=== PATIENT | male | born 1940 | race Caucasian/White ===

== ENCOUNTER 2018-11-10 19:10 | Inpatient (IN) ==
[2018-11-10] MEDS ORDERED: 0.9 % SODIUM CHLORIDE 1,000 ML IV ONE (19:24)
[2018-11-10] MEDS ORDERED: cefTRIAXone 1 GM VIAL IV ONE (20:01)
[2018-11-10 20:18] LABS: Basophils # (Auto) 0 K/mcL (0.0-0.3); Basophils % (Auto) 0 % (0.0-2.0); Eosinophils # (Auto) 0.1 K/mcL (0.0-0.7); Eosinophils % (Auto) 0.3 % (0.0-7.0); Hematocrit 44.2 % (41.0-55.0); Hemoglobin 14.6 g/dL (13.5-16.5); Lymphocytes # (Auto) 1.1 K/mcL (1.5-4.8); Lymphocytes % (Auto) 5.8 % (15.5-49.0); Mean Cell Volume 97.6 fL (80.0-100.0); Mean Corpuscular HGB Conc 32.9 g/dL (31.0-36.0); Mean Platelet Volume 8.5 fL (7.4-10.4); Monocytes # (Auto) 1.2 K/mcL (0.1-0.9); Monocytes % (Auto) 5.9 % (1.0-12.0); Platelet Count 249 K/mcL (140-440); RBC 4.53 M/mcL (4.50-5.90); WBC 19.8 K/mcL (4.5-11.0)
[2018-11-10 20:26] LABS: Appearance,Urine CLOUDY; Bacteria,Urine 0 /hpf (0); Bilirubin,Urine NEG (NEG); Color,Urine AMBER; Culture Indicated,Urine YES; Glucose,Urine (UA) NEGATIVE (NEG); Ketones,Urine NEG (NEG); Leukocyte Esterase,Urine 250 /uL (NEG); Mucus,Urine FEW /hpf (0); Nitrate,Urine POS (NEG); Protein,Urine 100 mg/dL (NEG); Specific Gravity,Urine 1.018 (1.000-1.035); Urine Blood 0.2 mg/dL (<0.03); Urine RBC 36 /hpf (0-1); Urine Squamous Epithelial Cell 0 /hpf (0-4); Urine WBC > 182 /hpf (0-4)
[2018-11-10 20:37] LABS: ALT/SGPT 13 U/l (0-40); AST/SGOT 16 U/l (0-37); Albumin 3.6 gm/dL (3.2-5.2); Albumin/Globulin Ratio 1.1 (1.0-2.3); Alkaline Phosphatase 88 U/L (39-117); Bilirubin,Total 0.4 mg/dL (0.0-1.0); Blood Urea Nitrogen 21 mg/dl (8-23); Calcium 8.5 mg/dl (8.6-10.4); Carbon Dioxide 20 mmol/L (22-30); Chloride 101 mmol/L (96-108); Globulin 3.3 gm/dL (2.2-3.7); Glomerular Filtration Rate 72; Glucose 99 mg/dL (70-105)
--- NOTE | 2018-11-10 20:42 | Emergency Department Note ---
Male Urogenital HPI - General Chief complaint: Urogenital-Male Stated complaint: possible UTI Time Seen by Provider: 11/10/18 19:25 Source: patient Mode of arrival: wheelchair Limitations: no limitations - History of Present Illness HPI Narrative: 78-year-old male presents with what he believes is a UTI. Has had increasing weakness over the last 3 days. Is prone to UTIs and sepsis related to UTIs according to him and his . He also is prone to prostatitis. states he had labs and a urine done 3 days ago and they still have not gotten the results. She did a dipstick at home which showed immediate large leukocytes and she believes she has a he has a UTI. States he is hard of hearing, not really confused. He does have what she describes as severe weakness and he can hardly get around at all. She states that is not like him and has progressively gotten worse over the last few days. Positive chills and a fever of 102 at home yeste rday. No nausea, vomiting, or diarrhea. No abdominal pain. No back pain. There is a very strong odor of urine present. is very concerned that he needs admitted because last time he had a UTI and we did not admit him he became much worse and septic due to prostatitis according to her. - Related Data Home Medications Medication Instructions Recorded Confirmed Aspirin [Lite Coat Aspirin] 325 mg PO DAILY 09/24/16 09/24/16 Ciprofloxacin [Cipro] 500 mg PO BID 09/24/16 09/24/16 Hydrochlorothiazide [Oretic] 12.5 mg PO DAILY 09/24/16 11/10/18 Losartan [Cozaar] 50 mg PO DAILY 09/24/16 11/10/18 Multivitamin [Multivitamins] 1 capsule PO DAILY 09/24/16 09/24/16 Sertraline [Zoloft] 100 mg DAILY 09/24/16 09/24/16 Sulfamethoxazole/Trimethoprim 1 tab PO BID 09/24/16 09/24/16 [Bactrim Ds] Tamsulosin 0.4 mg DAILY 09/24/16 11/10/18 Zantac 150 mg DAILY 09/24/16 09/24/16 traZODone HCL [Trazodone HCl] 25 mg DAILY 09/24/16 09/24/16 Cetirizine [ZyrTEC] 10 mg PO DAILY 11/10/18 11/10/18 Diltiazem [Cardizem Cd] 120 mg PO DAILY 11/10/18 11/10/18 Eliquis 5 mg PO BID 11/10/18 11/10/18 Mag Oxide/D3/Turmeric Rt Xt 1 tab PO DAILY 11/10/18 11/10/18 [Magnesium-Vit D3-Turmeric Tab] Pramipexole [Mirapex] 1.5 mg PO HS 11/10/18 11/10/18 Pravastatin [Pravachol] 40 mg PO DAILY 11/10/18 11/10/18 Sertraline [Zoloft] 100 mg PO DAILY 11/10/18 11/10/18 oxyCODONE HCL [Oxycodone HCl] 5 mg PO PRN PRN 11/10/18 11/10/18 Previous Rx's Medication Instructions Recorded Atenolol [Tenormin] 50 mg PO HS #30 tablet 09/24/16 Cefuroxime [Ceftin] 250 mg PO Q12 #10 tablet 09/24/16 Allergies Allergy/AdvReac Type Severity Reaction Status Date / Time codeine [CODEINE] Allergy Intermediate Rash,ITCHIN Verified 09/24/16 14:03 G hydrocodone [HYDROCODONE] Allergy Intermediate Rash,ITCHIN Verified 09/24/16 14:03 G Review of Systems All systems ED: reviewed and negative except as stated. Past Medical History - Past Medical History Medical history: Reports: atrial fibrillation (status post ablation), COPD, other (Frequent UTIs, prostatitis, sepsis) Surgical history ED: Reports: orthopedic, other, other (multiple back surgeries; lumbar fusion) - Social History smoking status: Former smoker Alcohol use: Reports: None Drug use: Reports: none Physical Exam Limitations: no limitations General appearance: alert, other (Hard of hearing but alert and oriented) Head: atraumatic, normocephalic, normal inspection Eye: Present: normal appearance. Absent: conjunctival injection ENT: mucous membranes moist Chest: Present: symmetric chest wall rise Respiratory: Present: normal lung sounds bilaterally. Absent: respiratory distress, rales/crackles, wheezes, accessory muscle use Cardiovascular: Present: regular rate, normal heart sounds Abdominal: Present: soft, normal bowel sounds. Absent: distention, tenderness, guarding, rebound : Present: other (Please see urine dip and urinalysis, urine culture pending) Neurological: Present: alert, oriented X3 Psychiatric: Present: normal affect, normal mood Skin: Present: warm, dry, intact, normal color. Absent: rash, cyanosis, diaphoresis, erythema Course Course Narrative: @2100 I did speak with the hospitalist, Dr. Jarrett who agrees to accept this patient. Vital Signs Temperature 98.5 F 11/10/18 19:11 Pulse Rate 110 H 11/10/18 19:11 Respiratory Rate 18 11/10/18 19:11 Blood Pressure 136/80 11/10/18 19:11 Pulse Oximetry (%) 95 11/10/18 19:11 Temperature 100.5 F H 11/10/18 20:07 Pulse Rate 114 H 11/10/18 20:43 Respiratory Rate 21 11/10/18 20:43 Blood Pressure 140/77 11/10/18 20:43 Pulse Oximetry (%) 93 11/10/18 20:43 Urogenital-Male - Lab Data Lab results reviewed: Yes I reviewed the patient's lab results. Result diagrams: 11/10/18 19:25 11/10/18 19:25 Lab Results 11/10/18 11/10/18 11/10/18 Range/Units 19:25 19:25 19:25 WBC 19.8 H (4.5-11.0) K/mcL RBC 4.53 (4.50-5.90) M/mcL Hgb 14.6 (13.5-16.5) g/dL Hct 44.2 (41.0-55.0) % MCV 97.6 (80.0-100.0) fL MCH 32.1 (26.0-34.0) pg MCHC 32.9 (31.0-36.0) g/dL RDW 14.0 (11.5-14.5) % Plt Count 249 (140-440) K/mcL MPV 8.5 (7.4-10.4) fL Gran % 88.0 H (38.0-78.0) % Lymph % (Auto) 5.8 L (15.5-49.0) % [place] % (Auto) 5.9 (1.0-12.0) % Eos % (Auto) 0.3 (0.0-7.0) % Baso % (Auto) 0 (0.0-2.0) % Gran # 17.4 H (1.8-8.0) K/mcL Lymph # (Auto) 1.1 L (1.5-4.8) K/mcL [place] # (Auto) 1.2 H (0.1-0.9) K/mcL Eos # (Auto) 0.1 (0.0-0.7) K/mcL Baso # (Auto) 0 (0.0-0.3) K/mcL VBG Lactic Acid 1.1 (0.5-2.0) mmol/L Sodium 135 (133-145) mmol/L Potassium 3.9 (3.3-5.1) mmol/L Chloride 101 (96-108) mmol/L Carbon Dioxide 20 L (22-30) mmol/L Anion Gap 14.0 (8-16) BUN 21 (8-23) mg/dl Creatinine 1.0 (0.7-1.2) mg/dl GFR Calculation 72 Glucose 99 (70-105) mg/dL Calcium 8.5 L (8.6-10.4) mg/dl Total Bilirubin 0.4 (0.0-1.0) mg/dL AST 16 (0-37) U/l ALT 13 (0-40) U/l Alkaline Phosphatase 88 (39-117) U/L Total Protein 6.9 (5.9-8.4) gm/dL Albumin 3.6 (3.2-5.2) gm/dL Globulin 3.3 (2.2-3.7) gm/dL Albumin/Globulin Ratio 1.1 (1.0-2.3) Urine Color Urine Appearance Urine pH (5.0-9.0) Ur Specific [place] (1.000-1.035) Urine Protein (NEG) mg/dL Urine Glucose (UA) (NEG) mg/dL Urine Ketones (NEG) mg/dL Urine Occult Blood (<0.03) mg/dL Urine Nitrate (NEG) Urine Bilirubin (NEG) mg/dL Urine Urobilinogen (NEG) mg/dL Ur Leukocyte Esterase (NEG) /uL Urine RBC (0-1) /hpf Urine WBC (0-4) /hpf Ur Squamous Epith Cells (0-4) /hpf Urine Bacteria (0) /hpf Urine Mucus (0) /hpf Ur Culture Indicated? 11/10/18 Range/Units 19:35 WBC (4.5-11.0) K/mcL RBC (4.50-5.90) M/mcL Hgb (13.5-16.5) g/dL Hct (41.0-55.0) % MCV (80.0-100.0) fL MCH (26.0-34.0) pg MCHC (31.0-36.0) g/dL RDW (11.5-14.5) % Plt Count (140-440) K/mcL MPV (7.4-10.4) fL Gran % (38.0-78.0) % Lymph % (Auto) (15.5-49.0) % [place] % (Auto) (1.0-12.0) % Eos % (Auto) (0.0-7.0) % Baso % (Auto) (0.0-2.0) % Gran # (1.8-8.0) K/mcL Lymph # (Auto) (1.5-4.8) K/mcL [place] # (Auto) (0.1-0.9) K/mcL Eos # (Auto) (0.0-0.7) K/mcL Baso # (Auto) (0.0-0.3) K/mcL VBG Lactic Acid (0.5-2.0) mmol/L Sodium (133-145) mmol/L Potassium (3.3-5.1) mmol/L Chloride (96-108) mmol/L Carbon Dioxide (22-30) mmol/L Anion Gap (8-16) BUN (8-23) mg/dl Creatinine (0.7-1.2) mg/dl GFR Calculation Glucose (70-105) mg/dL Calcium (8.6-10.4) mg/dl Total Bilirubin (0.0-1.0) mg/dL AST (0-37) U/l ALT (0-40) U/l Alkaline Phosphatase (39-117) U/L Total Protein (5.9-8.4) gm/dL Albumin (3.2-5.2) gm/dL Globulin (2.2-3.7) gm/dL Albumin/Globulin Ratio (1.0-2.3) Urine Color Bonnie Urine Appearance Cloudy Urine pH 6.0 (5.0-9.0) Ur Specific [place] 1.018 (1.000-1.035) Urine Protein 100 A (NEG) mg/dL Urine Glucose (UA) Negative (NEG) mg/dL Urine Ketones Neg (NEG) mg/dL Urine Occult Blood 0.2 A (<0.03) mg/dL Urine Nitrate Pos A (NEG) Urine Bilirubin Neg (NEG) mg/dL Urine Urobilinogen 2.0 A (NEG) mg/dL Ur Leukocyte Esterase 250 A (NEG) /uL Urine RBC 36 H (0-1) /hpf Urine WBC > 182 H (0-4) /hpf Ur Squamous Epith Cells 0 (0-4) /hpf Urine Bacteria 0 (0) /hpf Urine Mucus Few (0) /hpf Ur Culture Indicated? Yes - Radiology Data Radiology results reviewed: Yes I reviewed the patient's radiology results. Disposition Pt seen by LEAD PROCESS ENGINEER/PA only: No Clinical Impression: Fever, Urinary tract infection, Generalized weakness Disposition: Xfer As Outpt/Obs ([facility]) Condition: Fair Referrals: Cullen Ba MD [Primary Care Provider] - Time of Disposition: 21:00
--- NOTE | 2018-11-10 21:36 | Internal Med History&Physical ---
Medical - H&P: HPI Patient information: Note initiated : 11/10/18 at 9:32 pm Service Date, if different from initiated Date: [] Patient: Mil Fang a 78 y/o M admitted on for possible UTI. Chief Complaint: [] History of present illness: Mr. Fang is a 78 year old M with history of atrial fibrillation on chronic a nticoagulation back pain with the stimulator presents to the emergency room accompanied by his for evaluation of fever weakness that has been bothering him for the last 3 days. The patient has been not feeling well since Saturday, weakness, fever increased frequency of urination and foul-smelling urine. He has had urinary tract infections in the past and had required an admission. He was seen by his provider labs are ordered today, did not hear from the provider, urine dipstick was done as an outpatient the patient's brought this [id number] and it tested positive for a UTI and therefore the patient was brought into the hospital for further evaluation. The patient notes that the patient had a fever of 102 at home. The patient denies any headache changes in vision difficulty in swallowing no shortness of breath no cough no chest pain no abdominal pain no nausea no vo miting no diarrhea has chronic back pain has some sore muscles and myalgia otherwise no other complaints. On presenting to the emergency room patient had low-grade fever 100.5, heart rate was 109 blood pressure 136 x 80 respirations 18 saturating 95% on room air Labs show WBC count of 19,800, hemoglobin 14.6 platelets 249 chemistry shows bicarbonate of 20 creatinine of 1 glucose 99 UA suggestive of a urinary tract infection lactic acid is 1.1. Given the fact that the patient is quite weak has fever elevated white blood cell count patient is being admitted to the hospital for further management the patient already has 30-day heart monitor on for evaluation of atrial fibrillation by the aviation operations specialist, there is plan for an ablation in the near future All systems: reviewed and no additional remarkable complaints except as stated (As per HPI rest negative) Medical - H&P: PMH Medical history: Atrial fibrillation Chronic back Hyperlipidemia BPH Hypertension COPD obstructive sleep apnea History of DVT coronary artery disease Surgical history: Patient is status post TURP Multiple back surgeries Spinal cord submitted in place Family history: reviewed and not pertinent Social history: Lives with his Ex-smoker Social EtOH Medical - H&P: Meds Home Medications Medication Instructions Recorded Confirmed Type Aspirin [Lite Coat Aspirin] 325 mg PO DAILY 09/24/16 09/24/16 History Atenolol [Tenormin] 50 mg PO HS #30 tablet 09/24/16 Rx Cefuroxime [Ceftin] 250 mg PO Q12 #10 tablet 09/24/16 Rx Ciprofloxacin [Cipro] 500 mg PO BID 09/24/16 09/24/16 History Hydrochlorothiazide [Oretic] 12.5 mg PO DAILY 09/24/16 11/10/18 History Losartan [Cozaar] 50 mg PO DAILY 09/24/16 11/10/18 History Multivitamin [Multivitamins] 1 capsule PO DAILY 09/24/16 09/24/16 History Sertraline [Zoloft] 100 mg DAILY 09/24/16 09/24/16 History Sulfamethoxazole/Trimethoprim 1 tab PO BID 09/24/16 09/24/16 History [Bactrim Ds] Tamsulosin 0.4 mg DAILY 09/24/16 11/10/18 History Zantac 150 mg DAILY 09/24/16 09/24/16 History traZODone HCL [Trazodone HCl] 25 mg DAILY 09/24/16 09/24/16 History Cetirizine [ZyrTEC] 10 mg PO DAILY 11/10/18 11/10/18 History Diltiazem [Cardizem Cd] 120 mg PO DAILY 11/10/18 11/10/18 History Eliquis 5 mg PO BID 11/10/18 11/10/18 History Mag Oxide/D3/Turmeric Rt Xt 1 tab PO DAILY 11/10/18 11/10/18 History [Magnesium-Vit D3-Turmeric Tab] Pramipexole [Mirapex] 1.5 mg PO HS 11/10/18 11/10/18 History Pravastatin [Pravachol] 40 mg PO DAILY 11/10/18 11/10/18 History Sertraline [Zoloft] 100 mg PO DAILY 11/10/18 11/10/18 History oxyCODONE HCL [Oxycodone HCl] 5 mg PO PRN PRN 11/10/18 11/10/18 History Allergies Allergy/AdvReac Type Severity Reaction Status Date / Time codeine [CODEINE] Allergy Intermediate Rash,ITCHIN Verified 09/24/16 14:03 G hydrocodone [HYDROCODONE] Allergy Intermediate Rash,ITCHIN Verified 09/24/16 14:03 G Medical - H&P: Exam - Constitutional Vitals: Temp Pulse Resp BP Pulse Ox 100.5 F H 94 H 25 H 132/87 93 11/10/18 20:07 11/10/18 21:01 11/10/18 21:01 11/10/18 21:01 11/10/18 21:01 Exam: GENERAL: The patient is a well-developed, well-nourished in no apparent distress. Is alert and oriented x3. VITAL SIGNS: Reviewed and as noted elsewhere. HEENT: Head is normocephalic and atraumatic. Extraocular muscles are intact. Pupils are equal, round, and reactive to light. Nares appeared normal. Mouth appears any without lesions. Mucous membranes are dry. Hard of hearing NECK: Normal to inspection, Supple, No lymphadenopathy or thyromegaly. LUNGS: Air entry equal on both sides, no wheezing, crackles or rhonchi noted. No accessory muscles of respiration HEART: Regular rate and rhythm irregular, S1 and S2 heard, no Gallop, S3 or Rub Noted, No Gross murmur heard. ABDOMEN: Soft, nontender, and nondistended. Positive bowel sounds. No h epatosplenomegaly was noted. EXTREMITIES: No cyanosis, clubbing, rash, lesions or edema. NEUROLOGIC: Cranial nerves II through XII are grossly intact. Motor and Sensory System Grossly Intact PSYCHIATRIC: Normal affect, Normal Mood. Appropriate Behavior. SKIN: No ulceration or wounds noted, No jaundice, No rash noted. Medical - H&P: Reslt - Labs CBC & Chem 7: 11/10/18 19:25 11/10/18 19:25 Labs: Short CBC 11/10/18 Range/Units 19:25 WBC 19.8 H (4.5-11.0) K/mcL Hgb 14.6 (13.5-16.5) g/dL Hct 44.2 (41.0-55.0) % Plt Count 249 (140-440) K/mcL BMP 11/10/18 19:25 Sodium 135 Potassium 3.9 Chloride 101 Carbon Dioxide 20 L BUN 21 Creatinine 1.0 Glucose 99 Calcium 8.5 L Liver Function 11/10/18 Range/Units 19:25 Total Bilirubin 0.4 (0.0-1.0) mg/dL AST 16 (0-37) U/l ALT 13 (0-40) U/l Alkaline Phosphatase 88 (39-117) U/L Albumin 3.6 (3.2-5.2) gm/dL Urine 11/10/18 Range/Units 19:35 Urine Color Bonnie Urine Appearance Cloudy Urine pH 6.0 (5.0-9.0) Ur Specific [place] 1.018 (1.000-1.035) Urine Protein 100 A (NEG) mg/dL Urine Glucose (UA) Negative (NEG) mg/dL Medical - H&P: A/P - Narrative A/P Narrative: A/P UTI, complicated -IV rocephin, follow urine culture, blood cx Sepsis -due to above, lactate normal, bp normal Afib -rate controlled, on anticoagulation, on cardizem for rate control -has 30 day monitor, follows Dr Marlow, planned ablation in near future HTN -resume home bp meds HLD -on statin continue same COPD -no wheeze on exam, BPH -s/p turp, on flomax, continue h/o CAD -no cp, contiue home meds DVT on eliquis Full code
[2018-11-10] MEDS ORDERED: ONDANSETRON 4 MG/2 ML VIAL IV PRN (22:02)
[2018-11-10] MEDS ORDERED: ALBUTEROL SULFATE 2.5 MG/3 ML NEBULIZER NEB PRN (22:02)
[2018-11-10] MEDS ORDERED: NALOXONE HCL 0.4 MG/ML VIAL IV PRN (22:02)
[2018-11-10] MEDS ORDERED: cefTRIAXone 1 GM in DEXTROSE 5% IN WATER 50 ML IV SCH (22:02)
[2018-11-10] MEDS ORDERED: MAGNESIUM HYDROXIDE 30 ML ORAL.SUSP PO PRN (22:02)
[2018-11-10] MEDS ORDERED: traZODone HCL 50 MG TABLET PO PRN (22:02)
[2018-11-10] MEDS ORDERED: oxyCODONE HCL 5 MG TABLET PO PRN (22:02)
[2018-11-10] MEDS ORDERED: ACETAMINOPHEN 325 MG TABLET PO PRN (22:02)
--- NOTE | 2018-11-10 22:19 | Emergency Department Note ---
ED Note Addendum Note Addendum: I discussed this case with the mid-level provider and agree with the assessment and plan.
[2018-11-10] MEDS: DILTIAZEM 120 MG CAP.XL.24H PO SCH (22:41)
[2018-11-10] MEDS: PRAMIPEXOLE 1 MG TABLET PO SCH (22:41)
[2018-11-10] MEDS: APIXABAN 5 MG TABLET PO SCH (22:41)
[2018-11-10] MEDS: SIMVASTATIN 20 MG TABLET PO SCH (22:41)
[2018-11-10] MEDS: LACTATED RINGERS 1,000 ML IV SCH (22:42)
[2018-11-10] MEDS: 0.9 % SODIUM CHLORIDE 10 ML SYRINGE IV SCH (22:42)
[2018-11-11] MEDS: LACTATED RINGERS 1,000 ML IV SCH (03:44)
[2018-11-11] MEDS: IPRATROPIUM/ALBUTEROL 3 ML AMPUL.NEB NEB SCH ×5 (04:19→23:49)
[2018-11-11] MEDS: 0.9 % SODIUM CHLORIDE 10 ML SYRINGE IV SCH ×3 (04:46→20:24)
[2018-11-11 05:29] LABS: Basophils # (Auto) 0 K/mcL (0.0-0.3); Basophils % (Auto) 0 % (0.0-2.0); Eosinophils # (Auto) 0 K/mcL (0.0-0.7); Eosinophils % (Auto) 0.1 % (0.0-7.0); Granulocytes % (Auto) 85.2 % (38.0-78.0); Hemoglobin 12.8 g/dL (13.5-16.5); Lymphocytes # (Auto) 1.1 K/mcL (1.5-4.8); Lymphocytes % (Auto) 6.4 % (15.5-49.0); Mean Cell Volume 97.8 fL (80.0-100.0); Mean Corpuscular HGB Conc 32.9 g/dL (31.0-36.0); Mean Platelet Volume 8.4 fL (7.4-10.4); Monocytes # (Auto) 1.4 K/mcL (0.1-0.9); Monocytes % (Auto) 8.3 % (1.0-12.0); Platelet Count 233 K/mcL (140-440); RBC 3.98 M/mcL (4.50-5.90)
[2018-11-11 06:06] LABS: ALT/SGPT 11 U/l (0-40); AST/SGOT 14 U/l (0-37); Alkaline Phosphatase 88 U/L (39-117); Bilirubin,Direct < 0.2 mg/dL (0.0-0.3); Bilirubin,Total 0.3 mg/dL (0.0-1.0); Blood Urea Nitrogen 17 mg/dl (8-23); Calcium 8.3 mg/dl (8.6-10.4); Carbon Dioxide 23 mmol/L (22-30); Chloride 105 mmol/L (96-108); Globulin 2.9 gm/dL (2.2-3.7); Glomerular Filtration Rate 72; Glucose 114 mg/dL (70-105); Lactate Dehydrogenase 146 U/L (94-250); Phosphorous 1.4 mg/dL (2.7-4.5); Triglycerides 47 mg/dl (<150); Uric Acid 4.9 mg/dL (2.5-8.0)
[2018-11-11] MEDS: HYDROCHLOROTHIAZIDE 12.5 MG CAPSULE PO SCH (08:31)
[2018-11-11] MEDS: CETIRIZINE 10 MG TABLET PO SCH (08:31)
[2018-11-11] MEDS: SERTRALINE 100 MG TABLET PO SCH (08:32)
[2018-11-11] MEDS: LOSARTAN 25 MG TABLET PO SCH (08:32)
[2018-11-11] MEDS: APIXABAN 5 MG TABLET PO SCH ×2 (08:32→20:18)
[2018-11-11] MEDS: cefTRIAXone 1 GM VIAL IV SCH (08:33)
[2018-11-11] MEDS: DILTIAZEM 120 MG CAP.XL.24H PO SCH ×2 (08:33→20:19)
[2018-11-11] MEDS ORDERED: PRAVASTATIN 40 MG TABLET PO SCH (09:00)
[2018-11-11] MEDS ORDERED: TAMSULOSIN 0.4 MG CAPSULE PO SCH (09:00)
--- NOTE | 2018-11-11 10:42 | Internal Med Progress Note ---
Medical - PN: Subj Patient information: Note initiated : 11/11/18 at 10:41 am Service Date, if different from initiated Date: [] Patient: Mil Fang a 78 y/o M admitted on 11/10/18 for possible UTI. Chief Complaint: [] Interval history: Mr. Fang is a 78 year old M with history of atrial fibrillation on chronic an ticoagulation back pain with the stimulator presents to the emergency room accompanied by his for evaluation of fever weakness that has been bothering him for the last 3 days. The patient has been not feeling well since Saturday, weakness, fever increased frequency of urination and foul-smelling urine. He has had urinary tract infections in the past and had required an admission. He was seen by his provider labs are ordered today, did not hear from the provider, urine dipstick was done as an outpatient the patient's brought this [id number] and it tested positive for a UTI and therefore the patient was brought into the hospital for further evaluation. The patient notes that the patient had a fever of 102 at home. The patient denies any headache changes in vision difficulty in swallowing no shortness of breath no cough no chest pain no abdominal pain no nausea no vom iting no diarrhea has chronic back pain has some sore muscles and myalgia otherwise no other complaints. On presenting to the emergency room patient had low-grade fever 100.5, heart rate was 109 blood pressure 136 x 80 respirations 18 saturating 95% on room air Labs show WBC count of 19,800, hemoglobin 14.6 platelets 249 chemistry shows bicarbonate of 20 creatinine of 1 glucose 99 UA suggestive of a urinary tract infection lactic acid is 1.1. Given the fact that the patient is quite weak has fever elevated white blood cell count patient is being admitted to the hospital for further management the patient already has 30-day heart monitor on for evaluation of atrial fibrillation by the cardiovascular disease specialist, there is plan for an ablation in the near future 11/11 Patient is and examined, no acute overnight events. Doing well feels better but not as strong as baseline. White count down, urine and blood culture still pending Pertinent ROS: Denies headache, dizziness Denies chest pain, palpitations Denies cough or shortness of breath Denies abdominal pain, nausea or vomiting. - Constitutional Vitals: Vital Signs Temp Pulse Resp BP Pulse Ox 97.9 F 93 H 18 126/70 93 11/11/18 08:00 11/11/18 08:00 11/11/18 08:00 11/11/18 08:00 11/11/18 08:00 Period Temp Pulse Resp BP Sys/Armando Pulse Ox Last 24 Hr 97.9 F-100.5 F 67-116 14-30 104-149/68-92 93-97 Intake and Output 11/10/18 11/11/18 11/11/18 21:59 05:59 13:59 Intake Total 1000 1000 360 Output Total 1175 Balance 1000 -175 360 Weight 206 lb 208 lb 8 oz Intake & Output: Intake & Output 11/10/18 11/11/18 11/11/18 21:59 05:59 13:59 Intake Total 1000 1000 360 Output Total 1175 Balance 1000 -175 360 Weight 206 lb 208 lb 8 oz Intake: IV 1000 1000 Sodium Chloride 0.9% 1,000 ml @ 1000 Wide Open IV .Q0M ONE Rx#: [id number] Lactated Ringers 1,000 ml @ 200 1000 mls/hr IV .Q5H JOEL Rx#: [id number] Oral 360 Output: Void Amount 1175 Other: Meal Breakfast Percent of Meal Consumed 100% Feeding Ability Independent Urine Appearance Clear Urine Color Bright Yellow # Bowel Movements 1 Exam: Constitutional; Afebrile, cooperative, alert, not in distress. Respiratory system: Air Entry equal on both sides, No crackles or wheezing, no rhonchi. CVS- Rate rhythm regular, S1,S2 heard, no gallop, no rub. Abdomen- Soft nontender abdomen, no organomegaly, no tenderness, no guarding or rigidity, KEY ACCOUNT MANAGER- AOOx3, moving all extremities, no gross focal deficit noted. Medical - PN: Obj Da - Labs CBC & Chem 7: 11/11/18 03:50 11/11/18 03:50 Labs: Abnormal Lab Results 11/11/18 11/11/18 11/10/18 03:50 03:50 19:35 WBC 17.0 H RBC 3.98 L Hgb 12.8 L Hct 39.0 L Gran % 85.2 H Lymph % (Auto) 6.4 L Gran # 14.4 H Lymph # (Auto) 1.1 L [place] # (Auto) 1.4 H Carbon Dioxide Glucose 114 H Calcium 8.3 L Phosphorus 1.4 L Albumin 3.0 L Urine Protein 100 A Urine Occult Blood 0.2 A Urine Nitrate Pos A Urine Urobilinogen 2.0 A Ur Leukocyte Esterase 250 A Urine RBC 36 H Urine WBC > 182 H 11/10/18 11/10/18 19:25 19:25 WBC 19.8 H RBC Hgb Hct Gran % 88.0 H Lymph % (Auto) 5.8 L Gran # 17.4 H Lymph # (Auto) 1.1 L [place] # (Auto) 1.2 H Carbon Dioxide 20 L Glucose Calcium 8.5 L Phosphorus Albumin Urine Protein Urine Occult Blood Urine Nitrate Urine Urobilinogen Ur Leukocyte Esterase Urine RBC Urine WBC Meds: Medications Acetaminophen (Tylenol) 650 mg PO Q6HP PRN PRN Reason: PAIN/FEVER > 101 Albuterol Sulfate (Ventolin) 2.5 mg NEB Q2HP PRN PRN Reason: Shortness Of Breath Albuterol/Ipratropium (Duoneb) 3 ml NEB Q6HRT [facility] Last Admin: 11/11/18 06:50 Dose: 3 ml Documented by: Apixaban (Eliquis) 5 mg PO BID [facility] Last Admin: 11/11/18 08:32 Dose: 5 mg Documented by: Ceftriaxone Sodium (Rocephin) 1 gm IV Q24H [facility] Last Admin: 11/11/18 08:33 Dose: 1 gm Documented by: Cetirizine HCl (Zyrtec) 10 mg PO DAILY [facility] Last Admin: 11/11/18 08:31 Dose: 10 mg Documented by: Diltiazem HCl (Cardizem Cd) 120 mg PO BID [facility] Last Admin: 11/11/18 08:33 Dose: 120 mg Documented by: Hydrochlorothiazide (Oretic) 12.5 mg PO DAILY [facility] Last Admin: 11/11/18 08:31 Dose: 12.5 mg Documented by: Losartan Potassium (Cozaar) 50 mg PO DAILY [facility] Last Admin: 11/11/18 08:32 Dose: 50 mg Documented by: Magnesium Hydroxide (Milk Of Magnesia) 30 ml PO DAILYP PRN PRN Reason: Constipation Naloxone HCl (Narcan) 0.1 mg IV Q2MIN PRN PRN Reason: Opiate Reversal Ondansetron HCl (Zofran) 4 mg IV Q6HP PRN PRN Reason: Nausea And Vomiting Oxycodone HCl (Roxicodone) 5 mg PO Q4HP PRN PRN Reason: Pain Last Admin: 11/11/18 08:30 Dose: 5 mg Documented by: Pramipexole Dihydrochloride (Mirapex) 1.5 mg PO HS [facility] Last Admin: 11/10/18 22:41 Dose: 1.5 mg Documented by: Senna (Senokot) 2 tab PO [facility] Sertraline HCl (Zoloft) 100 mg PO DAILY [facility] Last Admin: 11/11/18 08:32 Dose: 100 mg Documented by: Simvastatin (Zocor) 20 mg PO HS [facility] Last Admin: 11/10/18 22:41 Dose: 20 mg Documented by: Sodium Chloride (Saline Flush) 10 ml IV Q8 [facility] Last Admin: 11/11/18 04:46 Dose: Not Given Documented by: Tamsulosin HCl (Flomax) 0.4 mg PO DAILY [facility] Last Admin: 11/11/18 09:30 Dose: Not Given Documented by: Trazodone HCl (Desyrel) 25 mg PO HSP PRN PRN Reason: Insomnia Medical - PN: A/P - Time Spent With Patient Total time spent is greater than 50% in coordination of care (as documented) at patient's floor/unit and/or counseling patient: - Narrative A/P Narrative: A/P UTI, complicated -IV rocephin, follow urine culture, blood cx Sepsis, resolved -due to above, lactate normal, bp normal Afib -rate controlled, on anticoagulation, on cardizem for rate control -has 30 day monitor, follows Dr Marlow, planned ablation in near future HTN -resume home bp meds , stable bp HLD -on statin continue same COPD -no wheeze on exam, BPH -s/p turp, on flomax qhs, continue h/o CAD -no cp, contiue home meds DVT on eliquis Full code
[2018-11-11] MEDS: SIMVASTATIN 20 MG TABLET PO SCH (20:18)
[2018-11-11] MEDS: PRAMIPEXOLE 1 MG TABLET PO SCH (20:18)
[2018-11-11] MEDS: SENNOSIDES 1 TABLET PO SCH (20:19)
[2018-11-11] MEDS: CALCIUM W/VIT D3 500 MG TABLET PO SCH (20:19)
[2018-11-11] MEDS: MAGNESIUM OXIDE 400 MG TABLET PO SCH (20:19)
[2018-11-11] MEDS: TAMSULOSIN 0.4 MG CAPSULE PO SCH (20:19)
[2018-11-11] MEDS ORDERED: MELATONIN 3 MG TABLET PO PRN (21:00)
[2018-11-12] MEDS: 0.9 % SODIUM CHLORIDE 10 ML SYRINGE IV SCH ×3 (05:49→20:50)
[2018-11-12 05:50] LABS: Basophils # (Auto) 0 K/mcL (0.0-0.3); Basophils % (Auto) 0.5 % (0.0-2.0); Eosinophils # (Auto) 0.1 K/mcL (0.0-0.7); Eosinophils % (Auto) 1.4 % (0.0-7.0); Granulocytes % (Auto) 76.2 % (38.0-78.0); Hematocrit 37.6 % (41.0-55.0); Hemoglobin 12.5 g/dL (13.5-16.5); Lymphocytes # (Auto) 1.1 K/mcL (1.5-4.8); Lymphocytes % (Auto) 12.3 % (15.5-49.0); Mean Cell Volume 97.4 fL (80.0-100.0); Mean Corpuscular HGB Conc 33.2 g/dL (31.0-36.0); Mean Platelet Volume 8.2 fL (7.4-10.4); Monocytes # (Auto) 0.9 K/mcL (0.1-0.9); Monocytes % (Auto) 9.6 % (1.0-12.0); Platelet Count 231 K/mcL (140-440); RBC 3.86 M/mcL (4.50-5.90); Red Cell Distribution Width 14.3 % (11.5-14.5)
[2018-11-12 05:58] LABS: ALT/SGPT 15 U/l (0-40); AST/SGOT 15 U/l (0-37); Albumin 2.9 gm/dL (3.2-5.2); Alkaline Phosphatase 74 U/L (39-117); Bilirubin,Direct < 0.2 mg/dL (0.0-0.3); Bilirubin,Total 0.4 mg/dL (0.0-1.0); Blood Urea Nitrogen 13 mg/dl (8-23); Calcium 8.3 mg/dl (8.6-10.4); Carbon Dioxide 25 mmol/L (22-30); Chloride 107 mmol/L (96-108); Glomerular Filtration Rate 86; Glucose 85 mg/dL (70-105); Lactate Dehydrogenase 144 U/L (94-250); Phosphorous 2.4 mg/dL (2.7-4.5); Triglycerides 45 mg/dl (<150); Uric Acid 4.9 mg/dL (2.5-8.0)
[2018-11-12] MEDS: IPRATROPIUM/ALBUTEROL 3 ML AMPUL.NEB NEB SCH (07:31)
[2018-11-12] MEDS: DILTIAZEM 120 MG CAP.XL.24H PO SCH ×2 (08:45→20:49)
[2018-11-12] MEDS: SERTRALINE 100 MG TABLET PO SCH (08:46)
[2018-11-12] MEDS: MAGNESIUM OXIDE 400 MG TABLET PO SCH ×2 (08:46→20:48)
[2018-11-12] MEDS: APIXABAN 5 MG TABLET PO SCH ×2 (08:47→20:50)
[2018-11-12] MEDS: LOSARTAN 25 MG TABLET PO SCH (08:47)
[2018-11-12] MEDS: CETIRIZINE 10 MG TABLET PO SCH (08:48)
[2018-11-12] MEDS: HYDROCHLOROTHIAZIDE 12.5 MG CAPSULE PO SCH (08:48)
[2018-11-12] MEDS: MULTIVIT,THER IRON,CA,FA & MIN 1 TABLET PO SCH (08:48)
[2018-11-12] MEDS: cefTRIAXone 1 GM VIAL IV SCH (08:57)
[2018-11-12] MEDS ORDERED: IPRATROPIUM/ALBUTEROL 3 ML AMPUL.NEB NEB PRN (11:41)
--- NOTE | 2018-11-12 11:41 | Internal Med Progress Note ---
Medical - PN: Subj Patient information: Note initiated : 11/12/18 at 11:39 am Service Date, if different from initiated Date: [] Patient: Mil Fang a 78 y/o M admitted on 11/10/18 for possible UTI. Chief Complaint: [] Interval history: Mr. Fang is a 78 year old M with history of atrial fibrillation on chronic an ticoagulation back pain with the stimulator presents to the emergency room accompanied by his for evaluation of fever weakness that has been bothering him for the last 3 days. The patient has been not feeling well since Saturday, weakness, fever increased frequency of urination and foul-smelling urine. He has had urinary tract infections in the past and had required an admission. He was seen by his provider labs are ordered today, did not hear from the provider, urine dipstick was done as an outpatient the patient's brought this [id number] and it tested positive for a UTI and therefore the patient was brought into the hospital for further evaluation. The patient notes that the patient had a fever of 102 at home. The patient denies any headache changes in vision difficulty in swallowing no shortness of breath no cough no chest pain no abdominal pain no nausea no vom iting no diarrhea has chronic back pain has some sore muscles and myalgia otherwise no other complaints. On presenting to the emergency room patient had low-grade fever 100.5, heart rate was 109 blood pressure 136 x 80 respirations 18 saturating 95% on room air Labs show WBC count of 19,800, hemoglobin 14.6 platelets 249 chemistry shows bicarbonate of 20 creatinine of 1 glucose 99 UA suggestive of a urinary tract infection lactic acid is 1.1. Given the fact that the patient is quite weak has fever elevated white blood cell count patient is being admitted to the hospital for further management the patient already has 30-day heart monitor on for evaluation of atrial fibrillation by the clinical lab specialist, there is plan for an ablation in the near future 11/11 Patient is and examined, no acute overnight events. Doing well feels better but not as strong as baseline. White count down, urine and blood culture still pending 11/12 Patient seen and examined, no acute overnight events. Patient has no new complaints or concerns feels better but still not as strong as he was before he came into the hospital. Urine culture is growing gram-negative bacillus isolation and sensitivity pending. Pertinent ROS: Denies headache, dizziness Denies chest pain, palpitations Denies cough or shortness of breath Denies abdominal pain, nausea or vomiting. - Constitutional Vitals: Vital Signs Temp Pulse Resp BP Pulse Ox 98.7 F 89 14 131/83 95 11/12/18 11:08 11/12/18 11:08 11/12/18 11:08 11/12/18 11:08 11/12/18 11:08 Period Temp Pulse Resp BP Sys/Armando Pulse Ox Last 24 Hr 97.3 F-98.9 F 80-96 14-18 103-144/56-83 93-97 Intake and Output 11/11/18 11/12/18 11/12/18 21:59 05:59 13:59 Intake Total 1050 400 Output Total 1100 1000 700 Balance -50 -600 -700 Weight 208 lb 8 oz Intake & Output: Intake & Output 11/11/18 11/12/18 11/12/18 21:59 05:59 13:59 Intake Total 1050 400 Output Total 1100 1000 700 Balance -50 -600 -700 Weight 208 lb 8 oz Intake: Oral 1050 400 Output: Void Amount 1100 1000 700 Other: Meal Lunch Percent of Meal Consumed 100% Urine Appearance Clear Clear Clear Urine Color Pale Bright Yellow Bright Yellow Bright Yellow Urine Odor Normal Exam: Constitutional; Afebrile, cooperative, alert, not in distress. Respiratory system: Air Entry equal on both sides, No crackles or wheezing, no rhonchi. CVS- Rate rhythm regular, S1,S2 heard, no gallop, no rub. Abdomen- Soft nontender abdomen, no organomegaly, no tenderness, no guarding or rigidity, CRITICAL CARE TRANSPORT NURSE- AOOx3, moving all extremities, no gross focal deficit noted. Medical - PN: Obj Da - Labs CBC & Chem 7: 11/12/18 03:21 11/12/18 03:21 Labs: Abnormal Lab Results 11/12/18 11/12/18 11/11/18 03:21 03:21 03:50 WBC RBC 3.86 L Hgb 12.5 L Hct 37.6 L Gran % Lymph % (Auto) 12.3 L Gran # Lymph # (Auto) 1.1 L [place] # (Auto) Carbon Dioxide Glucose 114 H Calcium 8.3 L 8.3 L Phosphorus 2.4 L 1.4 L Albumin 2.9 L 3.0 L Urine Protein Urine Occult Blood Urine Nitrate Urine Urobilinogen Ur Leukocyte Esterase Urine RBC Urine WBC 11/11/18 11/10/18 11/10/18 03:50 19:35 19:25 WBC 17.0 H RBC 3.98 L Hgb 12.8 L Hct 39.0 L Gran % 85.2 H Lymph % (Auto) 6.4 L Gran # 14.4 H Lymph # (Auto) 1.1 L [place] # (Auto) 1.4 H Carbon Dioxide 20 L Glucose Calcium 8.5 L Phosphorus Albumin Urine Protein 100 A Urine Occult Blood 0.2 A Urine Nitrate Pos A Urine Urobilinogen 2.0 A Ur Leukocyte Esterase 250 A Urine RBC 36 H Urine WBC > 182 H 11/10/18 19:25 WBC 19.8 H RBC Hgb Hct Gran % 88.0 H Lymph % (Auto) 5.8 L Gran # 17.4 H Lymph # (Auto) 1.1 L [place] # (Auto) 1.2 H Carbon Dioxide Glucose Calcium Phosphorus Albumin Urine Protein Urine Occult Blood Urine Nitrate Urine Urobilinogen Ur Leukocyte Esterase Urine RBC Urine WBC Meds: Medications Acetaminophen (Tylenol) 650 mg PO Q6HP PRN PRN Reason: PAIN/FEVER > 101 Albuterol Sulfate (Ventolin) 2.5 mg NEB Q2HP PRN PRN Reason: Shortness Of Breath Albuterol/Ipratropium (Duoneb) 3 ml NEB Q6HRT [facility] Last Admin: 11/12/18 07:31 Dose: Not Given Documented by: Apixaban (Eliquis) 5 mg PO BID [facility] Last Admin: 11/12/18 08:47 Dose: 5 mg Documented by: Calcium/Vitamin D (Calcium W/Vit D3) 500 mg PO QHS [facility] Last Admin: 11/11/18 20:19 Dose: 500 mg Documented by: Ceftriaxone Sodium (Rocephin) 1 gm IV Q24H [facility] Last Admin: 11/12/18 08:57 Dose: 1 gm Documented by: Cetirizine HCl (Zyrtec) 10 mg PO DAILY [facility] Last Admin: 11/12/18 08:48 Dose: 10 mg Documented by: Diltiazem HCl (Cardizem Cd) 120 mg PO BID [facility] Last Admin: 11/12/18 08:45 Dose: 120 mg Documented by: Hydrochlorothiazide (Oretic) 12.5 mg PO DAILY [facility] Last Admin: 11/12/18 08:48 Dose: 12.5 mg Documented by: Iron Carb/Multivit/Pie Cutter/Folic Acid (Multivitamin W/Minerals) 1 tab PO DAILY [facility] Last Admin: 11/12/18 08:48 Dose: 1 tab Documented by: Losartan Potassium (Cozaar) 50 mg PO DAILY [facility] Last Admin: 11/12/18 08:47 Dose: 50 mg Documented by: Magnesium Hydroxide (Milk Of Magnesia) 30 ml PO DAILYP PRN PRN Reason: Constipation Magnesium Oxide (Magnesium Oxide) 400 mg PO BID [facility] Last Admin: 11/12/18 08:46 Dose: 400 mg Documented by: Melatonin (Melatonin 3mg Tablet) 3 mg PO HSP PRN PRN Reason: Insomnia Naloxone HCl (Narcan) 0.1 mg IV Q2MIN PRN PRN Reason: Opiate Reversal Ondansetron HCl (Zofran) 4 mg IV Q6HP PRN PRN Reason: Nausea And Vomiting Oxycodone HCl (Roxicodone) 5 mg PO Q4HP PRN PRN Reason: Pain Last Admin: 11/11/18 08:30 Dose: 5 mg Documented by: Pramipexole Dihydrochloride (Mirapex) 1.5 mg PO [facility] Last Admin: 11/11/18 20:18 Dose: 1.5 mg Documented by: Senna (Senokot) 2 tab PO [facility] Last Admin: 11/11/18 20:19 Dose: 2 tab Documented by: Sertraline HCl (Zoloft) 100 mg PO DAILY [facility] Last Admin: 11/12/18 08:46 Dose: 100 mg Documented by: Simvastatin (Zocor) 20 mg PO [facility] Last Admin: 11/11/18 20:18 Dose: 20 mg Documented by: Sodium Chloride (Saline Flush) 10 ml IV Q8 [facility] Last Admin: 11/12/18 05:49 Dose: 10 ml Documented by: Tamsulosin HCl (Flomax) 0.4 mg PO QHS [facility] Last Admin: 11/11/18 20:19 Dose: 0.4 mg Documented by: Trazodone HCl (Desyrel) 25 mg PO HSP PRN PRN Reason: Insomnia Medical - PN: A/P - Time Spent With Patient Total time spent is greater than 50% in coordination of care (as documented) at patient's floor/unit and/or counseling patient: - Narrative A/P Narrative: A/P UTI, complicated -IV rocephin, follow urine culture, blood cx, gram neg in urine, but blood cx is negative. Sepsis, resolved -due to above, lactate normal, bp normal Afib -rate controlled, on anticoagulation, on cardizem for rate control -has 30 day monitor, follows Dr Marlow, planned ablation in near future HTN -resume home bp meds , stable bp HLD -on statin continue same COPD -no wheeze on exam, BPH -s/p turp, on flomax qhs, continue h/o CAD -no cp, contiue home meds Weakness -continue to work with PT/OT DVT on eliquis Full code Anticipate d/c home in AM
[2018-11-12] MEDS: PRAMIPEXOLE 1 MG TABLET PO SCH (20:47)
[2018-11-12] MEDS: CALCIUM W/VIT D3 500 MG TABLET PO SCH (20:48)
[2018-11-12] MEDS: SIMVASTATIN 20 MG TABLET PO SCH (20:49)
[2018-11-12] MEDS: TAMSULOSIN 0.4 MG CAPSULE PO SCH (20:49)
[2018-11-12] MEDS: SENNOSIDES 1 TABLET PO SCH (20:50)
[2018-11-13 05:26] LABS: Basophils # (Auto) 0 K/mcL (0.0-0.3); Basophils % (Auto) 0.6 % (0.0-2.0); Eosinophils # (Auto) 0.2 K/mcL (0.0-0.7); Eosinophils % (Auto) 3.7 % (0.0-7.0); Granulocytes % (Auto) 63.3 % (38.0-78.0); Hematocrit 41.1 % (41.0-55.0); Hemoglobin 13.5 g/dL (13.5-16.5); Lymphocytes # (Auto) 1.2 K/mcL (1.5-4.8); Lymphocytes % (Auto) 17.9 % (15.5-49.0); Mean Cell Volume 96.7 fL (80.0-100.0); Mean Corpuscular HGB Conc 32.8 g/dL (31.0-36.0); Monocytes # (Auto) 0.9 K/mcL (0.1-0.9); Monocytes % (Auto) 14.5 % (1.0-12.0); Platelet Count 271 K/mcL (140-440); RBC 4.25 M/mcL (4.50-5.90); Red Cell Distribution Width 13.7 % (11.5-14.5); WBC 6.5 K/mcL (4.5-11.0)
[2018-11-13 06:02] LABS: ALT/SGPT 23 U/l (0-40); AST/SGOT 21 U/l (0-37); Albumin 3.3 gm/dL (3.2-5.2); Alkaline Phosphatase 77 U/L (39-117); Bilirubin,Direct < 0.2 mg/dL (0.0-0.3); Bilirubin,Total 0.4 mg/dL (0.0-1.0); Blood Urea Nitrogen 13 mg/dl (8-23); Calcium 8.8 mg/dl (8.6-10.4); Carbon Dioxide 24 mmol/L (22-30); Chloride 103 mmol/L (96-108); Globulin 3.2 gm/dL (2.2-3.7); Glomerular Filtration Rate 86; Glucose 85 mg/dL (70-105); Lactate Dehydrogenase 141 U/L (94-250); Phosphorous 2.4 mg/dL (2.7-4.5); Triglycerides 68 mg/dl (<150)
[2018-11-13] MEDS: 0.9 % SODIUM CHLORIDE 10 ML SYRINGE IV SCH (07:43)
[2018-11-13] MEDS: HYDROCHLOROTHIAZIDE 12.5 MG CAPSULE PO SCH (08:21)
[2018-11-13] MEDS: MULTIVIT,THER IRON,CA,FA & MIN 1 TABLET PO SCH (08:21)
[2018-11-13] MEDS: SERTRALINE 100 MG TABLET PO SCH (08:21)
[2018-11-13] MEDS: LOSARTAN 25 MG TABLET PO SCH (08:22)
[2018-11-13] MEDS: CETIRIZINE 10 MG TABLET PO SCH (08:22)
[2018-11-13] MEDS: DILTIAZEM 120 MG CAP.XL.24H PO SCH (08:22)
[2018-11-13] MEDS: APIXABAN 5 MG TABLET PO SCH (08:22)
[2018-11-13] MEDS: MAGNESIUM OXIDE 400 MG TABLET PO SCH (08:22)
[2018-11-13] MEDS: cefTRIAXone 1 GM VIAL IV SCH (08:27)
--- NOTE | 2018-11-13 09:22 | Discharge Summary ---
Medical - DS: Prov Patient information: Note initiated : 11/13/18 at 9:15 am Service Date, if different from initiated Date: [] Patient: Mil Fang 78 y/o M admitted on 11/10/18 for possible UTI. Chief Complaint: [] Date of admission: 11/10/18 22:00 Discharge date: 11/13/18 Primary care physician: Cullen Ba MD Consults: 11/10/18 Consult to Physician [CONS] Stat Comment: Consulting Provider: Se Jarrett Reason For Exam: Physician to Consult Discharging clinician: Se Jarrett Medical - DS: Meds - Discharge Medications Prescriptions: Cephalexin [Keflex] 500 mg PO QID #16 cap Active and Home Medications: Home Medications Hydrochlorothiazide [Oretic] 12.5 mg PO DAILY 09/24/16 [History Confirmed 11/10/18 Last Taken 11/10/18] Losartan [Cozaar] 50 mg PO DAILY 09/24/16 [History Confirmed 11/10/18 Last Taken 11/10/18] Multivitamin [Multivitamins] 1 capsule PO DAILY 09/24/16 [History Confirmed 11/12/18 Last Taken 11/10/18] Sertraline [Zoloft] 100 mg PO DAILY 09/24/16 [History Confirmed 11/10/18 Last Taken Unknown] Tamsulosin 0.4 mg DAILY 09/24/16 [History Confirmed 11/10/18 Last Taken 11/09/18] Zantac 150 mg PO DAILY 09/24/16 [History Confirmed 11/10/18 Last Taken 11/04/18] Cetirizine [ZyrTEC] 10 mg PO DAILY 11/10/18 [History Confirmed 11/10/18 Last Taken 11/09/18] Diltiazem [Cardizem Cd] 120 mg PO DAILY 11/10/18 [History Confirmed 11/10/18 Last Taken 11/10/18] Eliquis 5 mg PO BID 11/10/18 [History Confirmed 11/10/18 Last Taken 11/10/18] Mag Oxide/D3/Turmeric Rt Xt [Magnesium-Vit D3-Turmeric Tab] 1 tab PO DAILY 11/10/18 [History Confirmed 11/10/18 Last Taken 11/10/18] Pramipexole [Mirapex] 1.5 mg PO HS 11/10/18 [History Confirmed 11/10/18 Last Taken 11/10/18] Pravastatin [Pravachol] 40 mg PO DAILY 11/10/18 [History Confirmed 11/10/18 Last Taken 11/09/18] Sertraline [Zoloft] 100 mg PO DAILY 11/10/18 [History Confirmed 11/10/18 Last Taken 11/10/18] oxyCODONE HCL [Oxycodone HCl] 5 mg PO PRN PRN 11/10/18 [History Confirmed 11/10/18 Last Taken 10/28/18] Medical - DS: Hosp Hospital course: MMr. Fang is a 78 year old M with history of atrial fibrillation on chronic anticoagulation back pain with the stimulator presents to the emergency room accompanied by his for evaluation of fever weakness that has been bothering him for the last 3 days. The patient has been not feeling well since Saturday, weakness, fever increased frequency of urination and foul-smelling urine. He has had urinary tract infections in the past and had required an admission. He was seen by his provider labs are ordered today, did not hear from the provider, urine dipstick was done as an outpatient the patient's brought this [id number] and it tested positive for a UTI and therefore the patient was brought into the hospital for further evaluation. The patient notes that the patient had a fever of 102 at home. The patient denies any headache changes in vision difficulty in swallowing no shortness of breath no cough no chest pain no abdominal pain no nausea no vomiting no diarrhea has chronic back pain has some sore muscles and myalgia otherwise no other complaints. On presenting to the emergency room patient had low-grade fever 100.5, heart rate was 109 blood pressure 136 x 80 respirations 18 saturating 95% on room air Labs show WBC count of 19,800, hemoglobin 14.6 platelets 249 chemistry shows bicarbonate of 20 creatinine of 1 glucose 99 UA suggestive of a urinary tract infection lactic acid is 1.1. Given the fact that the patient is quite weak has fever elevated white blood cell count patient is being admitted to the hospital for further management the patient already has 30-day heart monitor on for evaluation of atrial fibrillation by the medicare specialist, there is plan for an ablation in the near future 11/11 Patient is and examined, no acute overnight events. Doing well feels better but not as strong as baseline. White count down, urine and blood culture still pending 11/12 Patient seen and examined, no acute overnight events. Patient has no new complaints or concerns feels better but still not as strong as he was before he came into the hospital. Urine culture is growing gram-negative bacillus isolation and sensitivity pending. 11/13 Patient seen and examined no acute overnight events is dressed ready to be discharged. Has no new complaints or concerns sitting comfortably in the chair. Labs are stable. Urine culture is growing E. coli which is sensitive to cefazolin, I will discharge the patient with p.o. Keflex for another 4 days to complete a course of 7-day antibiotics. Discharge diagnosis: Complicated Urinary Tract infection - Time Spent with Patient Total time spent providing and/or coordinating discharge services: Greater than 30 minutes Medical - DS: Exam - Constitutional Vitals: Vital Signs Temp Pulse Resp BP BP Pulse Ox 11/13/18 07:35 98.6 F 16 134/74 94 11/13/18 03:52 97.5 F 87 24 H 139/75 94 11/12/18 23:20 98.9 F 88 24 H 128/69 95 11/12/18 19:53 97.8 F 84 22 153/85 93 11/12/18 16:00 98.7 F 84 14 126/76 95 11/12/18 11:08 98.7 F 89 14 131/83 95 Intake and Output 11/12/18 11/13/18 11/13/18 21:59 05:59 13:59 Intake Total 760 300 Output Total 600 1300 Balance 160 -1000 Intake: Oral 760 300 Output: Void Amount 600 1300 Other: Meal Dinner Percent of Meal Consumed 100% Feeding Ability Independent Urine Appearance Clear Clear Urine Color Bright Yellow Bright Yellow Urine Odor Normal Normal Weight 208 lb Additional comments: Constitutional; Afebrile, cooperative, alert, not in distress. Eyes- No icterus, , No periorbital swelling Ears- Ext ear normal, hearing normal to conversation. Neck- Midline trachea, supple Respiratory system: Air Entry equal on both sides, No crackles or wheezing, no rhonchi. CVS- Rate rhythm regular, S1,S2 heard, no gallop, no rub. Abdomen- Soft nontender abdomen, no organomegaly, no tenderness, no guarding or rigidity, PERFORMANCE IMPROVEMENT ANALYST- AOOx3, moving all extremities, no gross focal deficit noted. Medical - DS: Data Labs on day of discharge: Labs from last 24 hours 11/13/18 11/13/18 04:05 04:05 WBC 6.5 RBC 4.25 L Hgb 13.5 Hct 41.1 MCV 96.7 MCH 31.7 MCHC 32.8 RDW 13.7 Plt Count 271 MPV 8.0 Gran % 63.3 Lymph % (Auto) 17.9 Ocean % (Auto) 14.5 H Eos % (Auto) 3.7 Baso % (Auto) 0.6 Gran # 4.1 Lymph # (Auto) 1.2 L [place] # (Auto) 0.9 Eos # (Auto) 0.2 Baso # (Auto) 0 Sodium 137 Potassium 3.8 Chloride 103 Carbon Dioxide 24 Anion Gap 10.0 BUN 13 Creatinine 0.8 GFR Calculation 86 Glucose 85 Uric Acid 5.0 Calcium 8.8 Phosphorus 2.4 L Magnesium 1.9 Total Bilirubin 0.4 Direct Bilirubin < 0.2 GGT 20 AST 21 ALT 23 Alkaline Phosphatase 77 Lactate Dehydrogenase 141 Total Protein 6.5 Albumin 3.3 Globulin 3.2 Albumin/Globulin Ratio 1.0 Triglycerides 68 Preliminary micro results at discharge 11/10/18 19:25 Blood Culture - Preliminary Blood 11/10/18 20:14 Blood Culture - Preliminary Blood Medical - DS: A/P - Patient/Caregiver Discharge Instructions Activity: increase activity as tolerated Diet: Cardiac Additional Instructions: You were admitted to the hospital with a diagnosis of urinary tract infection, E. coli was isolated from the urine specimen. Take Cephalexin 500mg four times a day for 4 more days to complete your treatment course Follow up with PCP in 1 week Should your symptoms worsen you develop fever chills or any other acute complaint please go back to the emergency room for further evaluation - Follow up Plan Follow up with: Cullen Ba MD [Primary Care Provider] - Disposition: Home, Self-Care Prognosis: Fair Rehab Potential: Fair I certify that the patient requires SNF services: No Overall status at discharge: patient is progressing back to baseline
== END 2018-11-13 11:30 | disposition home or self-care (01) | DRG 872 ==
LOC: ED 19:10 → MEDSUR 22:00
PROVIDERS: ADMIT Internal Medicine; ATTEND Internal Medicine

== ENCOUNTER 2020-04-22 09:12 | Inpatient (IN) ==
[2020-04-22] MEDS ORDERED: TERBUTALINE 1 MG/ML VIAL SQ ONE (09:54)
[2020-04-22] MEDS ORDERED: 0.9 % SODIUM CHLORIDE 1,000 ML IV ONE ×2 (09:54→12:43)
[2020-04-22] MEDS ORDERED: ALBUTEROL SULFATE 200 PUFF INHALER INH ONE (09:54)
--- NOTE | 2020-04-22 10:00 | Emergency Department Note ---
Weakness HPI General Chief complaint: Weakness Stated complaint: weakness Time Seen by Provider: 04/22/20 09:38 Source: patient Mode of arrival: ambulatory Limitations: no limitations History of Present Illness HPI Narrative: Narrative: 79-year-old male who woke up this morning with coughing and shortness of breath. He is now requiring 3 L of oxygen to keep his saturations above 90%. He does have a history of COPD and heart problems-[facility] He is generally feeling weak and fatigued. Denies exposure to Covid or fever. No nausea or vomiting no diarrhea. He is not on home oxygen. He was hypotensive and so EMS put him on IV fluids Related Data Home Medications Medication Instructions Recorded Confirmed losartan 50 mg PO DAILY 09/24/16 04/22/20 sertraline 100 mg PO DAILY 09/24/16 04/22/20 cetirizine 10 mg PO DAILY 11/10/18 09/10/19 oxycodone 5 mg PO PRN PRN 11/10/18 04/22/20 pramipexole 1.5 mg PO HS 11/10/18 04/22/20 pravastatin 40 mg PO DAILY 11/10/18 04/22/20 albuterol sulfate 90 mcg/actuation 2 inh INHALATION QID PRN 04/09/19 09/10/19 breath activated powder inhaler diltiazem HCl 120 mg capsule,24 120 mg PO BID cap 04/09/19 04/22/20 hr,extended release tamsulosin 0.4 mg capsule 0.4 mg PO QHS cap 04/09/19 04/22/20 tiotropium 2.5 mcg-olodaterol 2.5 2 puff INHALATION QDAY 04/09/19 09/10/19 mcg/actuation mist for inhalation Calcium 600mg/Vitamin D PO QDAY 04/10/19 09/10/19 magnesium oxide 420 mg tablet 420 mg PO QDAY 04/10/19 09/10/19 apixaban 5 mg tablet 2 mg PO BID tab 04/15/19 04/22/20 cholecalciferol (vitamin D3) 25 5,000 unit PO QDAY cap 04/15/19 09/10/19 mcg (1,000 unit) capsule multivitamin 1 tab PO QDAY 04/15/19 09/10/19 hydrochlorothiazide 12.5 mg PO QDAY 04/22/20 04/22/20 Previous Rx's Medication Instructions Recorded tiotropium 2.5 mcg-olodaterol 2.5 2 puff INHALATION QDAY #12 g 04/15/19 mcg/actuation mist for inhalation Allergies Allergy/AdvReac Type Severity Reaction Status Date / Time codeine [CODEINE] Allergy Intermediate Hives Verified 09/10/19 10:58 hydrocodone [HYDROCODONE] Allergy Intermediate Rash,ITCHIN Verified 09/10/19 10:58 G amitriptyline Allergy Unknown Unknown Unverified 09/10/19 10:58 egg Allergy Unknown Unknown Unverified 09/10/19 10:58 metoprolol Allergy Unknown Unknown Unverified 09/10/19 10:58 wheat Allergy Unknown Unknown Unverified 09/10/19 10:58 caffine Allergy Unknown Unknown Uncoded 09/10/19 10:58 dairy Allergy Unknown Unknown Uncoded 09/10/19 10:58 Review of Systems ROS ROS Narrative: Narrative: All systems ED: reviewed and negative except as stated. PFSH Narrative Patient History Narrative: Narrative: Medical/Surgical/Family History All Active Problems (Updated 04/22/20 @ 10:38 by Andrzej Drake MD) Sepsis (Acute) Pneumonia (Acute) Hiatal hernia (Chronic) Bronchiectasis (Chronic) detention (current) use of opiate analgesic (Chronic) Diverticulitis (Chronic) DVT (deep venous thrombosis) (Chronic) Nocturia (Chronic) Chronic rhinitis (Chronic) Spinal stenosis, lumbar region with neurogenic claudication (Chronic) JOSIE on CPAP (Chronic) Febrile disorder (Chronic) Chronic ear infection (Chronic) Chronic obstructive pulmonary disease (Chronic) Atherosclerosis of coronary artery (Chronic) Paroxysmal atrial fibrillation (Chronic) CAD (coronary artery disease) (Chronic) Trigger finger, right index finger (Chronic) GERD (gastroesophageal reflux disease) (Chronic) Pulmonary fibrosis, unspecified (Chronic) Emphysema lung (Chronic) Elevated BP without diagnosis of hypertension (Chronic) Chronic back pain (Chronic) Colonic polyp (Chronic) Generalized anxiety disorder (Chronic) detention (current) use of anticoagulants (Chronic) Myocardial ischemia (Chronic) Sensorineural hearing loss (Chronic) Closed fracture of hip (Chronic) Hypogonadism (Chronic) Osteoporosis (Chronic) Acute lower urinary tract infection (Chronic) Benign prostatic hyperplasia (Chronic) Otitis externa (Chronic) Hyperlipidemia (Chronic) Restless legs (Chronic) Osteoarthritis (Chronic) Lumbar radiculopathy (Chronic) Allergic rhinitis (Chronic) Benign essential hypertension (Chronic) Mass (Chronic) Otitis media (Chronic) Disorder of nail (Chronic) Chronic sciatica (Chronic) Cardiac arrhythmia (Chronic) AAA (abdominal aortic aneurysm) (Chronic) Acute UTI (Chronic) Atrial fibrillation (Chronic) Insomnia (Chronic) Obstructive sleep apnea syndrome (Chronic) Interstitial emphysema (Chronic) Fever of unknown origin (Acute) COPD exacerbation (Acute) Hypomagnesemia (Acute) A-fib (Acute) Nausea & vomiting (Acute) Fever (Acute) Urinary tract infection (Acute) Generalized weakness (Acute) Medical History AAA (abdominal aortic aneurysm) (Chronic) Acute lower urinary tract infection (Chronic) Acute UTI (Chronic) Allergic rhinitis (Chronic) Atherosclerosis of coronary artery (Chronic) Atrial fibrillation (Chronic) Benign essential hypertension (Chronic) Benign prostatic hyperplasia (Chronic) Bronchiectasis (Chronic) Demonstrated on CT scan chest dated 02/03/2019 [facility] CAD (coronary artery disease) (Chronic) Cardiac arrhythmia (Chronic) Chronic back pain (Chronic) Chronic ear infection (Chronic) Chronic obstructive pulmonary disease (Chronic) Chronic rhinitis (Chronic) Chronic sciatica (Chronic) Closed fracture of hip (Chronic) Colonic polyp (Chronic) Disorder of nail (Chronic) Diverticulitis (Chronic) DVT (deep venous thrombosis) (Chronic) Elevated BP without diagnosis of hypertension (Chronic) Emphysema lung (Chronic) Febrile disorder (Chronic) Generalized anxiety disorder (Chronic) GERD (gastroesophageal reflux disease) (Chronic) Hiatal hernia (Chronic) Hyperlipidemia (Chronic) Hypogonadism (Chronic) Insomnia (Chronic) Interstitial emphysema (Chronic) detention (current) use of anticoagulants (Chronic) detention (current) use of opiate analgesic (Chronic) Lumbar radiculopathy (Chronic) Mass (Chronic) Myocardial ischemia (Chronic) Nocturia (Chronic) Obstructive sleep apnea syndrome (Chronic) JOSIE on CPAP (Chronic) Osteoarthritis (Chronic) Osteoporosis (Chronic) Otitis externa (Chronic) Otitis media (Chronic) Paroxysmal atrial fibrillation (Chronic) Pulmonary fibrosis, unspecified (Chronic) RLL Restless legs (Chronic) Sensorineural hearing loss (Chronic) Spinal stenosis, lumbar region with neurogenic claudication (Chronic) Trigger finger, right index finger (Chronic) Surgical History History of back surgery (Chronic) Multiple dating back to 1990, 2001, 2005, and 2010 History of left heart catheterization (Chronic) History of transurethral resection of prostate (Chronic) Status post ablation of atrial flutter (Chronic ~2013) Status post insertion of spinal cord stimulator (Chronic) Family History Mother Cancer Metastatic breast cancer Father Cancer Suicide Coronary heart disease Brother Parkinson's disease Social History Smoking Status: Former smoker Alcohol Intake Frequency: does not drink Substance Use: does not use Exam Narrative Narrative: Narrative: No acute distress doing much better after getting nasal cannula oxygen. He is normocephalic atraumatic. Conjunctive are clear sclerae white nonicteric. No nasal discharge or congestion. Oropharynx is pink and moist. Neck is supple without lymphadenopathy or thyromegaly. Heart is regular rate and rhythm no murmurs appreciated. Lungs are basically clear to aus cultation bilaterally but he does have some subtle end expiratory wheezes and bilateral crackles. Abdomen is soft nontender nondistended. No pedal edema. Alert and oriented General Limitations: no limitations Course Vital Signs Vital signs: Vital Signs Temperature 100.4 F H 04/22/20 09:12 Pulse Rate 121 H 04/22/20 09:12 Respiratory Rate 31 H 04/22/20 09:12 Blood Pressure 119/63 04/22/20 09:12 Pulse Oximetry (%) 94 04/22/20 09:12 Temperature 100.4 F H 04/22/20 09:12 Pulse Rate 113 H 04/22/20 10:01 Respiratory Rate 30 H 04/22/20 10:01 Blood Pressure 99/56 04/22/20 10:01 Pulse Oximetry (%) 93 04/22/20 10:01 [facility] MDM Narrative Medical decision making narrative: Narrative: Suspect pulmonary disease such as COPD plus or minus pneumonia plus minus CHF. Chest x-ray, test Covid, other laboratory. He is actually feeling better after getting oxygen and IV fluid. We will give him some terbutaline and albuterol Elizabeth testing for rapid Covid was negative. Chest x-ray however is concerning for significant pneumonia-we will order antibiotics and blood cultures. Concern for sepsis. ABG shows pH 7.42 PCO2 30 PO2 of 66 on 3 L of oxygen EKG shows sinus tachycardia Patient will be checked out to Dr. Meraz at shift change. Further disposition per him Lab Data Lab results reviewed: Yes I reviewed the patient's lab results. Result diagrams: 04/22/20 10:13 04/22/20 10:13 Radiology Data Radiology results reviewed: Yes I reviewed the patient's radiology results. EKG Data EKG #1: EKG attestation: Yes I reviewed and interpreted this EKG. EKG results narrative: Sinus tachycardia with several PAC Discharge Plan Patient/Caregiver Discharge Instructions Pt seen by CARDIOPULMONARY SPECIALIST/PA only: No Clinical Impression: Chronic obstructive pulmonary disease Qualifiers: COPD type: unspecified COPD Qualified Code(s): J44.9 - Chronic obstructive pulmonary disease, unspecified Sepsis Qualifiers: Sepsis type: sepsis due to unspecified organism Sepsis acute organ dysfunction status: with acute organ dysfunction Severe sepsis acute organ dysfunction type: unspecified Severe sepsis shock status: unspecified Qualified Code(s): A41.9 - Sepsis, unspecified organism Pneumonia Qualifiers: Pneumonia type: due to unspecified organism Laterality: right Lung location: lower lobe of lung Qualified Code(s): J18.9 - Pneumonia, unspecified organism Patient Disposition: Still a Patient Condition: Critical Follow up with: Leonie Sommer ARNP [Primary Care Provider] - Prescriptions: No Action albuterol sulfate 90 mcg/actuation aerosol powdr breath activated 2 inh INHALATION QID PRNRF: 0 diltiazem HCl 120 mg capsule,extended release 24 hr 120 mg PO BID RF: 0 tamsulosin 0.4 mg capsule 0.4 mg PO QHS RF: 0 tiotropium-olodaterol 2.5-2.5 mcg/actuation mist 2 puff INHALATION QDAY RF: 0 Calcium 600mg/Vitamin D PO QDAY RF: 0 magnesium oxide 420 mg tablet 420 mg PO QDAY RF: 0 apixaban 5 mg tablet 2 mg PO BID RF: 0 cholecalciferol (vitamin D3) 25 mcg (1,000 unit) capsule 5,000 unit PO QDAY RF: 0 multivitamin [Multiple Vitamins] Tablet 1 tab PO QDAY RF: 0 Stiolto Respimat 2.5-2.5 mcg/actuation mist 2 puff INHALATION QDAY Qty: 12 RF: 3 sertraline 100 MG tablet 100 mg PO DAILY RF: 0 losartan 25 MG tablet 50 mg PO DAILY RF: 0 pramipexole 1 MG tablet 1.5 mg PO HS RF: 0 cetirizine 10 MG tablet 10 mg PO DAILY RF: 0 pravastatin 40 MG tablet 40 mg PO DAILY RF: 0 oxycodone 5 MG tablet 5 mg PO PRN PRN (Reason: Pain) RF: 0 hydrochlorothiazide 12.5 mg Capsule 12.5 mg PO QDAY RF: 0
[2020-04-22] MEDS ORDERED: VANCOMYCIN 1,500 MG in 0.9 % SODIUM CHLORIDE 500 ML IV ONE (10:39)
[2020-04-22] MEDS ORDERED: PIPERACILLIN SODIUM/TAZOBACTAM 3.375 GM in DEXTROSE 5% IN WATER 50 ML IV ONE (10:39)
[2020-04-22 11:16] LABS: proBNP 334.2 pg/mL (<450.0)
[2020-04-22 11:18] LABS: ALT/SGPT 14 U/L (<40); AST/SGOT 19 U/L (<40); Albumin 3.6 gm/dL (3.2-5.2); Albumin/Globulin Ratio 1.2 (1.0-2.3); Alkaline Phosphatase 86 U/L (39-117); Bilirubin,Total 0.6 mg/dL (0.1-1.0); Blood Urea Nitrogen 39 mg/dL (8-23); Calcium 9.3 mg/dL (8.6-10.4); Carbon Dioxide 21 mmol/L (22-30); Chloride 99 mmol/L (96-108); Glomerular Filtration Rate 44; Glucose 120 mg/dL (70-105)
[2020-04-22 11:27] LABS: Basophils # (Auto) 0.04 K/mcL (0.00-0.20); Basophils % (Auto) 0.2 % (0.0-2.0); Eosinophils # (Auto) 0.15 K/mcL (0.00-0.70); Eosinophils % (Auto) 0.7 % (0.0-7.0); Hematocrit 43.8 % (41.0-55.0); Lymphocytes # (Auto) 0.33 K/mcL (1.50-4.80); Lymphocytes % (Auto) 1.5 % (15.0-49.0); Mean Cell Volume 92.6 fL (80.0-100.0); Mean Corpuscular HGB Conc 34.2 g/dL (31.0-36.0); Mean Platelet Volume 9.7 fL (7.4-10.4); Monocytes # (Auto) 1.02 K/mcL (0.10-0.90); Monocytes % (Auto) 4.6 % (1.0-12.0); Platelet Count 278 K/mcL (140-440); RBC 4.73 M/mcL (4.50-5.90); Red Cell Distribution Width 13.3 % (11.5-14.5)
[2020-04-22] MEDS ORDERED: AZITHROMYCIN 500 MG in DEXTROSE 5% IN WATER 250 ML IV ONE (11:29)
--- NOTE | 2020-04-22 11:39 | XRay Report ---
CLINICAL INFORMATION: SOB, cough COMPARISON: 02/16/2020 FINDINGS: Moderate megaly is unchanged. Mild thoracic aortic ectasia also stable. The remaining mediastinum and pulmonary vessels are normal. Moderate infiltrate in the right mid and lower lung appreciated. Minor airspace disease in the left lateral base infiltrate or atelectasis or developing infiltrate IMPRESSION: Moderate right mid and lower lung infiltrate. Interpreted and Authenticated by: Uriel Lobo 04/22/20
[2020-04-22] MEDS ORDERED: LACTULOSE 20 GM/30 ML ORAL.SOL PO PRN ×2 (12:44→14:18)
[2020-04-22] MEDS ORDERED: ACETAMINOPHEN 325 MG TABLET PO PRN ×2 (12:44→14:18)
[2020-04-22] MEDS ORDERED: PROMETHAZINE 25 MG TABLET PO PRN ×2 (12:44→14:18)
[2020-04-22] MEDS ORDERED: 0.9 % SODIUM CHLORIDE 1,000 ML IV SCH (12:45)
[2020-04-22] MEDS ORDERED: PIPERACILLIN SODIUM/TAZOBACTAM 3.375 GM in DEXTROSE 5% IN WATER 50 ML IV SCH (12:45)
[2020-04-22] MEDS ORDERED: oxyCODONE HCL 5 MG TABLET PO PRN (12:53)
[2020-04-22] MEDS ORDERED: AZITHROMYCIN 500 MG in DEXTROSE 5% IN WATER 250 ML IV SCH (13:00)
[2020-04-22] MEDS ORDERED: 0.9 % SODIUM CHLORIDE 250 ML IV SCH (13:00)
[2020-04-22] MEDS ORDERED: VASOPRESSIN 20 UNIT in DEXTROSE 5% IN WATER 99 ML IV SCH (13:00)
[2020-04-22] MEDS ORDERED: METOPROLOL TARTRATE 5 MG/5 ML VIAL IV PRN (13:01)
--- NOTE | 2020-04-22 13:09 | Internal Med History&Physical ---
HPI History of Present Illness Patient information: Note initiated : 04/22/20 at 1:05 pm Service Date, if different from initiated Date: [] Patient: Mil Fang a 79 y/o M admitted on for weakness. Chief Complaint: [] History of present illness: Mr. Fang is a 79 year old M with a past medical history of paroxysmal atrial fibrillation, COPD, pulmonary fibrosis, history of DVT, and history of long-term use of opiate who presented to the ER due to acute shortness of breath associated with a cough. At the per patient, he has been having acute shortness of breath associated with dry cough. He also feels tired. In the ER, rapid Covid test negative. X-ray showed moderate right mid and lower lung infiltrate. His D-dimer was elevated in the ER. But he is on Eliquis for atrial fibrillation. Review of Systems Review of systems: Positive for shortness of breath. All other systems were reviewed and are negative. PFSH PFSH All Active Problems Sepsis (Acute) Pneumonia (Acute) Hiatal hernia (Chronic) Bronchiectasis (Chronic) general accountant (current) use of opiate analgesic (Chronic) Diverticulitis (Chronic) DVT (deep venous thrombosis) (Chronic) Nocturia (Chronic) Chronic rhinitis (Chronic) Spinal stenosis, lumbar region with neurogenic claudication (Chronic) JOSIE on CPAP (Chronic) Febrile disorder (Chronic) Chronic ear infection (Chronic) Chronic obstructive pulmonary disease (Chronic) Atherosclerosis of coronary artery (Chronic) Paroxysmal atrial fibrillation (Chronic) CAD (coronary artery disease) (Chronic) Trigger finger, right index finger (Chronic) GERD (gastroesophageal reflux disease) (Chronic) Pulmonary fibrosis, unspecified (Chronic) Emphysema lung (Chronic) Elevated BP without diagnosis of hypertension (Chronic) Chronic back pain (Chronic) Colonic polyp (Chronic) Generalized anxiety disorder (Chronic) general accountant (current) use of anticoagulants (Chronic) Myocardial ischemia (Chronic) Sensorineural hearing loss (Chronic) Closed fracture of hip (Chronic) Hypogonadism (Chronic) Osteoporosis (Chronic) Acute lower urinary tract infection (Chronic) Benign prostatic hyperplasia (Chronic) Otitis externa (Chronic) Hyperlipidemia (Chronic) Restless legs (Chronic) Osteoarthritis (Chronic) Lumbar radiculopathy (Chronic) Allergic rhinitis (Chronic) Benign essential hypertension (Chronic) Mass (Chronic) Otitis media (Chronic) Disorder of nail (Chronic) Chronic sciatica (Chronic) Cardiac arrhythmia (Chronic) AAA (abdominal aortic aneurysm) (Chronic) Acute UTI (Chronic) Atrial fibrillation (Chronic) Insomnia (Chronic) Obstructive sleep apnea syndrome (Chronic) Interstitial emphysema (Chronic) Fever of unknown origin (Acute) COPD exacerbation (Acute) Hypomagnesemia (Acute) A-fib (Acute) Nausea & vomiting (Acute) Fever (Acute) Urinary tract infection (Acute) Generalized weakness (Acute) Medical History AAA (abdominal aortic aneurysm) (Chronic) Acute lower urinary tract infection (Chronic) Acute UTI (Chronic) Allergic rhinitis (Chronic) Atherosclerosis of coronary artery (Chronic) Atrial fibrillation (Chronic) Benign essential hypertension (Chronic) Benign prostatic hyperplasia (Chronic) Bronchiectasis (Chronic) Demonstrated on CT scan chest dated 02/03/2019 [facility] CAD (coronary artery disease) (Chronic) Cardiac arrhythmia (Chronic) Chronic back pain (Chronic) Chronic ear infection (Chronic) Chronic obstructive pulmonary disease (Chronic) Chronic rhinitis (Chronic) Chronic sciatica (Chronic) Closed fracture of hip (Chronic) Colonic polyp (Chronic) Disorder of nail (Chronic) Diverticulitis (Chronic) DVT (deep venous thrombosis) (Chronic) Elevated BP without diagnosis of hypertension (Chronic) Emphysema lung (Chronic) Febrile disorder (Chronic) Generalized anxiety disorder (Chronic) GERD (gastroesophageal reflux disease) (Chronic) Hiatal hernia (Chronic) Hyperlipidemia (Chronic) Hypogonadism (Chronic) Insomnia (Chronic) Interstitial emphysema (Chronic) general accountant (current) use of anticoagulants (Chronic) senior living (current) use of opiate analgesic (Chronic) Lumbar radiculopathy (Chronic) Mass (Chronic) Myocardial ischemia (Chronic) Nocturia (Chronic) Obstructive sleep apnea syndrome (Chronic) JOSIE on CPAP (Chronic) Osteoarthritis (Chronic) Osteoporosis (Chronic) Otitis externa (Chronic) Otitis media (Chronic) Paroxysmal atrial fibrillation (Chronic) Pulmonary fibrosis, unspecified (Chronic) RLL Restless legs (Chronic) Sensorineural hearing loss (Chronic) Spinal stenosis, lumbar region with neurogenic claudication (Chronic) Trigger finger, right index finger (Chronic) Surgical History History of back surgery (Chronic) Multiple dating back to 1990, 2001, 2006, and 2010 History of left heart catheterization (Chronic) History of transurethral resection of prostate (Chronic) Status post ablation of atrial flutter (Chronic ~2013) Status post insertion of spinal cord stimulator (Chronic) Family History Mother Cancer Metastatic breast cancer Father Cancer Suicide Coronary heart disease Brother Parkinson's disease Social History smoking status: Former smoker smoking status start date: 04/29/1968 smoking status stop date: 04/29/13 alcohol intake frequency: does not drink substance use type: does not use MEDS/ALLERGIES Home Medications and Allergies Home Medications Medication Instructions Recorded Confirmed Type losartan 50 mg PO DAILY 09/24/16 04/22/20 History sertraline 100 mg PO DAILY 09/24/16 04/22/20 History cetirizine 10 mg PO DAILY 11/10/18 09/10/19 History oxycodone 5 mg PO PRN PRN 11/10/18 04/22/20 History pramipexole 1.5 mg PO HS 11/10/18 04/22/20 History pravastatin 40 mg PO DAILY 11/10/18 04/22/20 History albuterol sulfate 90 mcg/actuation 2 inh INHALATION QID PRN 04/09/19 09/10/19 History breath activated powder inhaler diltiazem HCl 120 mg capsule,24 120 mg PO BID cap 04/09/19 04/22/20 History hr,extended release tamsulosin 0.4 mg capsule 0.4 mg PO QHS cap 04/09/19 04/22/20 History tiotropium 2.5 mcg-olodaterol 2.5 2 puff INHALATION QDAY 04/09/19 09/10/19 History mcg/actuation mist for inhalation Calcium 600mg/Vitamin D PO QDAY 04/10/19 09/10/19 History magnesium oxide 420 mg tablet 420 mg PO QDAY 04/10/19 09/10/19 History apixaban 5 mg tablet 2 mg PO BID tab 04/15/19 04/22/20 History cholecalciferol (vitamin D3) 25 5,000 unit PO QDAY cap 04/15/19 09/10/19 History mcg (1,000 unit) capsule multivitamin 1 tab PO QDAY 04/15/19 09/10/19 History tiotropium 2.5 mcg-olodaterol 2.5 2 puff INHALATION QDAY #12 g 04/15/19 09/10/19 Rx mcg/actuation mist for inhalation hydrochlorothiazide 12.5 mg PO QDAY 04/22/20 04/22/20 History Allergies Allergy/AdvReac Type Severity Reaction Status Date / Time codeine [CODEINE] Allergy Intermediate Hives Verified 04/22/20 11:26 hydrocodone [HYDROCODONE] Allergy Intermediate Rash,ITCHIN Verified 04/22/20 11:26 G amitriptyline Allergy Unknown Unknown Verified 04/22/20 11:26 egg Allergy Unknown Unknown Verified 04/22/20 11:26 metoprolol Allergy Unknown Unknown Verified 04/22/20 11:26 wheat Allergy Unknown Unknown Verified 04/22/20 11:26 caffine Allergy Unknown Unknown Uncoded 09/10/19 10:58 dairy Allergy Unknown Unknown Uncoded 09/10/19 10:58 EXAM Constitutional Vitals: Temp Pulse Resp BP Pulse Ox 100.4 F H 98 H 19 97/60 95 04/22/20 09:12 04/22/20 12:46 04/22/20 12:46 04/22/20 12:46 04/22/20 12:46 Additional findings Additional findings: General - No acute distress Eyes - PERRLA, EOM intact ENT no rhinorrhea, no noticeable or palpable swelling Neck supple, no JVD, no thyromegaly Respiratory: Lungs -diminished breathing sounds, right basilar crackle. Cardiovascular -irregular irregular rhythm, no m/r/g, GI - Normal bowel sounds, no distended, soft. Extremeties - No edema, cyanosis or clubbing Hemo/lymphatic/immune no lymphadenopathy Neurological Alert and oriented x 3, no focal neurological deficits. Psychiatry flat affect DATA Data Completed and Pending Labs: Labs from last 24 hours 04/22/20 04/22/20 04/22/20 12:24 10:13 10:13 WBC RBC Hgb Hct MCV MCH MCHC RDW Plt Count MPV Neut % (Auto) Lymph % (Auto) [place] % (Auto) Eos % (Auto) Baso % (Auto) Lymph # (Auto) [place] # (Auto) Eos # (Auto) Baso # (Auto) Absolute Neutrophils D-Dimer VBG Lactic Acid Sodium Potassium Chloride Carbon Dioxide Anion Gap BUN Creatinine GFR Calculation Glucose Calcium Magnesium Total Bilirubin AST ALT Alkaline Phosphatase Troponin T < 0.01 NT-Pro-B Natriuret Pep Total Protein Albumin Globulin Albumin/Globulin Ratio Procalcitonin 3.34 H SARS-CoV-2 (PCR) Pending 04/22/20 04/22/20 04/22/20 10:13 10:13 10:13 WBC RBC Hgb Hct MCV MCH MCHC RDW Plt Count MPV Neut % (Auto) Lymph % (Auto) [place] % (Auto) Eos % (Auto) Baso % (Auto) Lymph # (Auto) [place] # (Auto) Eos # (Auto) Baso # (Auto) Absolute Neutrophils D-Dimer 1.11 H VBG Lactic Acid 1.6 Sodium 134 Potassium 4.0 Chloride 99 Carbon Dioxide 21 L Anion Gap 14.0 BUN 39 H Creatinine 1.5 H GFR Calculation 44 Glucose 120 H Calcium 9.3 Magnesium 2.0 Total Bilirubin 0.6 AST 19 ALT 14 Alkaline Phosphatase 86 Troponin T NT-Pro-B Natriuret Pep 334.2 Total Protein 6.6 Albumin 3.6 Globulin 3.0 Albumin/Globulin Ratio 1.2 Procalcitonin SARS-CoV-2 (PCR) 04/22/20 10:13 WBC 22.0 H RBC 4.73 Hgb 15.0 Hct 43.8 MCV 92.6 MCH 31.7 MCHC 34.2 RDW 13.3 Plt Count 278 MPV 9.7 Neut % (Auto) 93.0 H Lymph % (Auto) 1.5 L [place] % (Auto) 4.6 Eos % (Auto) 0.7 Baso % (Auto) 0.2 Lymph # (Auto) 0.33 L [place] # (Auto) 1.02 H Eos # (Auto) 0.15 Baso # (Auto) 0.04 Absolute Neutrophils 20.45 H D-Dimer VBG Lactic Acid Sodium Potassium Chloride Carbon Dioxide Anion Gap BUN Creatinine GFR Calculation Glucose Calcium Magnesium Total Bilirubin AST ALT Alkaline Phosphatase Troponin T NT-Pro-B Natriuret Pep Total Protein Albumin Globulin Albumin/Globulin Ratio Procalcitonin SARS-CoV-2 (PCR) A/P Narrative A/P Narrative: 1. Septic shock 2nd to pneumonia Gentle IV fluid Antibiotics Vasopressin, MAP 65 2. Acute respiratory failure Pulse ox Oxygen therapy to keep oxygen saturation greater than 92% Troponin 3. Pneumonia, CAP, aspiration or Covid 19 Rapid Covid test negative in the ER Blood culture Sputum culture MRSA screen Azithromycin and Zosyn 4. EVIE or EVIE on CKD creatinine 1.1 on 02/04/2019 IV fluid Repeat renal function morning 5. Paroxysmal atrial fibrillation Continue diltiazem 120 mg daily Patient is on Eliquis which he is on hold Lovenox 100 mg twice daily 6. Hx of COPD Inhalers 7. Pulmonary fibrosis, unspecified Continue inhalers 8. Hx of DVT Lovenox 100 mg twice daily 9. Hx of retirement use of opiate analgesic Continue home medication oxycodone 10. Elevation of D-dimer Patient is on Eliquis but the patient has history DVT I would like to hold his Eliquis Started Lovenox 100 mg twice daily Echocardiogram 11. DVT prophylaxis: Lovenox Time Spent With Patient Time: Total time spent is greater than 50% in coordination of care (as documented) at patient's floor/unit and/or counseling patient:
[2020-04-22] MEDS ORDERED: 0.9 % SODIUM CHLORIDE 10 ML SYRINGE IV SCH (14:00)
[2020-04-22 14:03] LABS: proBNP 507.3 pg/mL (<450.0)
[2020-04-22 14:06] LABS: Phosphorous 2.5 mg/dL (2.5-4.5)
[2020-04-22] MEDS: 0.9 % SODIUM CHLORIDE 250 ML IV SCH ×2 (14:24)
[2020-04-22 14:32] LABS: INR 1.3 (0.9-1.1); Prothrombin Time 17.1 sec (11.9-14.5)
[2020-04-22] MEDS: 0.9 % SODIUM CHLORIDE 1,000 ML IV SCH (14:33)
[2020-04-22] MEDS ORDERED: IPRATROPIUM/ALBUTEROL 3 ML AMPUL.NEB NEB SCH (15:00)
[2020-04-22] MEDS ORDERED: LEVALBUTEROL 0.63 MG/3 ML AMPUL.NEB NEB SCH ×2 (15:00)
[2020-04-22] MEDS: IPRATROPIUM/ALBUTEROL 3 ML AMPUL.NEB NEB SCH ×3 (15:13→22:23)
[2020-04-22] MEDS ORDERED: FUROSEMIDE 20 MG/2 ML VIAL IV ONE (15:30)
[2020-04-22 15:57] LABS: Appearance,Urine CLEAR (Clear); Bilirubin,Urine Negative (Negative); Color,Urine YELLOW; Culture Indicated,Urine No; Glucose,Urine (UA) Negative (Negative); Ketones,Urine Negative (Negative); Leukocyte Esterase,Urine Negative /ug (Negative); Nitrate,Urine Negative (Negative); Protein,Urine Negative (Negative); Specific Gravity,Urine 1.018 (1.000-1.035); Urine Blood Negative (Negative); Urobilinogen,Urine Negative
[2020-04-22] MEDS ORDERED: LEVALBUTEROL 0.63 MG/3 ML AMPUL.NEB NEB PRN (16:40)
[2020-04-22] MEDS: PIPERACILLIN SODIUM/TAZOBACTAM 3.375 GM in DEXTROSE 5% IN WATER 50 ML IV SCH ×2 (17:23→23:56)
[2020-04-22] MEDS ORDERED: ENOXAPARIN 100 MG/ML SYRINGE SQ SCH (21:00)
[2020-04-22] MEDS ORDERED: DILTIAZEM HCL 120 MG PO SCH (21:00)
[2020-04-22] MEDS ORDERED: PRAMIPEXOLE 1 MG TABLET PO SCH (21:00)
[2020-04-22] MEDS ORDERED: TAMSULOSIN 0.4 MG CAPSULE PO SCH (21:00)
[2020-04-22] MEDS ORDERED: DOCUSATE SODIUM 100 MG CAPSULE PO SCH (21:00)
[2020-04-22] MEDS: ENOXAPARIN 100 MG/ML SYRINGE SQ SCH (21:02)
[2020-04-22] MEDS: DOCUSATE SODIUM 100 MG CAPSULE PO SCH (21:02)
[2020-04-22] MEDS: TAMSULOSIN 0.4 MG CAPSULE PO SCH (21:02)
[2020-04-22] MEDS: DILTIAZEM 120 MG CAP.XL.24H PO SCH (21:02)
[2020-04-22] MEDS: PRAMIPEXOLE 1 MG TABLET PO SCH (21:06)
[2020-04-22] MEDS: MELATONIN 3 MG TABLET PO SCH (22:04)
[2020-04-22] MEDS: 0.9 % SODIUM CHLORIDE 10 ML SYRINGE IV SCH (22:05)
[2020-04-23] MEDS: oxyCODONE HCL 5 MG TABLET PO PRN (01:10)
[2020-04-23] MEDS: 0.9 % SODIUM CHLORIDE 250 ML IV SCH ×4 (03:27→15:47)
[2020-04-23] MEDS: IPRATROPIUM/ALBUTEROL 3 ML AMPUL.NEB NEB SCH ×6 (03:45→23:00)
[2020-04-23] MEDS: PIPERACILLIN SODIUM/TAZOBACTAM 3.375 GM in DEXTROSE 5% IN WATER 50 ML IV SCH ×3 (05:39→17:55)
[2020-04-23] MEDS: 0.9 % SODIUM CHLORIDE 10 ML SYRINGE IV SCH ×3 (05:39→21:29)
[2020-04-23] MEDS ORDERED: VASOPRESSIN 20 UNIT in DEXTROSE 5% IN WATER 99 ML IV SCH (06:00)
[2020-04-23 06:54] LABS: Estimated Average Glucose(eAG) 111 mg/dL; Hemoglobin A1C 5.5 % Hgb (4.0-6.0)
[2020-04-23] MEDS ORDERED: PANTOPRAZOLE 40 MG TABLET PO SCH (07:30)
[2020-04-23 07:35] LABS: ALT/SGPT 16 U/L (<40); AST/SGOT 31 U/L (<40); Alkaline Phosphatase 82 U/L (39-117); Bilirubin,Total 0.5 mg/dL (0.1-1.0); Blood Urea Nitrogen 36 mg/dL (8-23); Calcium 8.6 mg/dL (8.6-10.4); Carbon Dioxide 18 mmol/L (22-30); Chloride 107 mmol/L (96-108); Globulin 2.9 gm/dL (2.2-3.7); Glomerular Filtration Rate 52; Glucose 105 mg/dL (70-105)
[2020-04-23 07:50] LABS: Basophils # (Auto) 0.04 K/mcL (0.00-0.20); Basophils % (Auto) 0.2 % (0.0-2.0); Eosinophils # (Auto) 0.05 K/mcL (0.00-0.70); Eosinophils % (Auto) 0.3 % (0.0-7.0); Hematocrit 37.6 % (41.0-55.0); Hemoglobin 12.7 g/dL (13.5-16.5); Lymphocytes # (Auto) 1.55 K/mcL (1.50-4.80); Lymphocytes % (Auto) 7.9 % (15.0-49.0); Mean Cell Volume 93.5 fL (80.0-100.0); Mean Corpuscular HGB Conc 33.8 g/dL (31.0-36.0); Mean Platelet Volume 10.2 fL (7.4-10.4); Monocytes # (Auto) 1.24 K/mcL (0.10-0.90); Monocytes % (Auto) 6.3 % (1.0-12.0); Neutrophils % (Auto) 85.3 % (38.0-78.0); Platelet Count 256 K/mcL (140-440); RBC 4.02 M/mcL (4.50-5.90); Red Cell Distribution Width 13.9 % (11.5-14.5); WBC 19.7 K/mcL (4.5-11.0)
[2020-04-23] MEDS: SERTRALINE 100 MG TABLET PO SCH (08:11)
[2020-04-23] MEDS: PANTOPRAZOLE 40 MG TABLET PO SCH (08:11)
[2020-04-23] MEDS: ENOXAPARIN 100 MG/ML SYRINGE SQ SCH ×2 (08:11→21:28)
[2020-04-23] MEDS: DOCUSATE SODIUM 100 MG CAPSULE PO SCH ×2 (08:11→21:28)
[2020-04-23] MEDS: DILTIAZEM 120 MG CAP.XL.24H PO SCH ×2 (08:11→21:28)
[2020-04-23] MEDS: AZITHROMYCIN 500 MG in DEXTROSE 5% IN WATER 250 ML IV SCH (08:24)
[2020-04-23] MEDS ORDERED: PRAVASTATIN 40 MG TABLET PO SCH ×2 (09:00)
[2020-04-23] MEDS ORDERED: SERTRALINE 100 MG TABLET PO SCH (09:00)
[2020-04-23 10:48] LABS: Ferritin 224.8 ng/mL (30.0-400.0)
[2020-04-23] MEDS: 0.9 % SODIUM CHLORIDE 1,000 ML IV SCH ×2 (11:18→18:55)
[2020-04-23 11:37] LABS: CRP,High Sensitivity 185.7 mg/L (1.0-3.0)
[2020-04-23] MEDS: PRAVASTATIN 40 MG TABLET PO SCH (13:46)
[2020-04-23] MEDS ORDERED: VASOPRESSIN 20 UNIT in DEXTROSE 5% IN WATER 99 ML IV PRN (16:14)
--- NOTE | 2020-04-23 17:10 | Internal Med Progress Note ---
SUBJECTIVE Subjective Patient information: Note initiated : 04/23/20 at 5:08 pm Service Date, if different from initiated Date: [] Patient: Mil Fang a 79 y/o M admitted on 04/22/20 for weakness. Chief Complaint: [] Mr. Fang is a 79 year old M with a past medical history of paroxysmal atrial f ibrillation, COPD, pulmonary fibrosis, history of DVT, and history of long-term use of opiate who presented to the ER due to acute shortness of breath associated with a cough. At the per patient, he has been having acute shortness of breath associated with dry cough. He also feels tired. In the ER, rapid Covid test negative. X-ray showed moderate right mid and lower lung infiltrate. His D-dimer was elevated in the ER. But he is on Eliquis for atrial fibrillation. 04/23 Patient still complains of shortness of breath. Denies nausea, vomiting, or diarrhea. Blood pressure still soft 93/60, heart rate 90, He is on 3 to 4 L Creatinine 1.3 D-dimer 0.81, ferritin 225, CRP 186, procalcitonin 588, troponin less than 0.01 Review of Systems Review of systems: Positive for shortness of breath. All other systems were reviewed and are negative. Constitutional Vitals: Vital Signs Temp Pulse Resp BP Pulse Ox 99.6 F H 99 H 27 H 133/60 95 04/23/20 16:01 04/23/20 16:01 04/23/20 16:01 04/23/20 16:01 04/23/20 16:01 Period Temp Pulse Resp BP Sys/Armando Pulse Ox Last 24 Hr 96.1 F-99.6 F 87-110 16-32 91-136/49-107 89-97 Intake and Output 04/23/20 04/23/20 04/23/20 05:59 13:59 21:59 Intake Total 760 1070 560 Output Total 575 800 600 Balance 185 270 -40 Weight 98.52 kg Intake & Output: Intake & Output 04/23/20 04/23/20 04/23/20 05:59 13:59 21:59 Intake Total 760 1070 560 Output Total 575 800 600 Balance 185 270 -40 Weight 98.52 kg Intake: IV 520 350 Sodium Chloride 0.9% 1,000 ml @ 470 50 mls/hr IV .Q20H [facility] Rx#: [id number] Zithromax 500 mg In Dextrose 5% 250 in Water 250 ml @ 250 mls/hr IV Q24H [facility] Rx#:[id number] Zosyn 3.375 gm In Dextrose 5% 50 100 in Water 50 ml @ 100 mls/hr IV Q6H [facility] Rx#:[id number] Oral 240 720 560 Output: Void Amount 575 800 600 Other: Meal Lunch Percent of Meal Consumed 75% Urine Appearance Clear Clear Urine Color Bright Yellow Light Bonnie Dark Yellow Urine Odor Normal Additional findings Additional findings: General - No acute distress Eyes - PERRLA, EOM intact ENT no rhinorrhea, no noticeable or palpable swelling Neck supple, no JVD, no thyromegaly Respiratory: Lungs -diminished breathing sounds, right basilar crackle. Cardiovascular -irregular irregular rhythm, no m/r/g, GI - Normal bowel sounds, no distended, soft. Extremeties - No edema, cyanosis or clubbing Hemo/lymphatic/immune no lymphadenopathy Neurological Alert and oriented x 3, no focal neurological deficits. Psychiatry flat affect OBJ DATA Labs CBC & Chem 7: 04/23/20 04:07 04/23/20 04:07 Labs: Abnormal Lab Results 04/23/20 04/23/20 04/23/20 09:45 09:45 09:45 WBC RBC Hgb Hct Neut % (Auto) Lymph % (Auto) Lymph # (Auto) [place] # (Auto) Absolute Neutrophils PT INR D-Dimer 0.81 H VBG Lactic Acid Carbon Dioxide BUN Creatinine Glucose C-Reactive Protein C-React Prot High Sens 185.7 H NT-Pro-B Natriuret Pep Albumin Procalcitonin 5.88 H 04/23/20 04/23/20 04/22/20 04:07 04:07 13:06 WBC 19.7 H RBC 4.02 L Hgb 12.7 L Hct 37.6 L Neut % (Auto) 85.3 H Lymph % (Auto) 7.9 L Lymph # (Auto) [place] # (Auto) 1.24 H Absolute Neutrophils 16.77 H PT INR D-Dimer VBG Lactic Acid Carbon Dioxide 18 L BUN 36 H Creatinine 1.3 H Glucose C-Reactive Protein 3.00 H C-React Prot High Sens NT-Pro-B Natriuret Pep 507.3 H Albumin 3.0 L Procalcitonin 04/22/20 04/22/20 04/22/20 13:06 13:06 10:13 WBC RBC Hgb Hct Neut % (Auto) Lymph % (Auto) Lymph # (Auto) [place] # (Auto) Absolute Neutrophils PT 17.1 H INR 1.3 H D-Dimer VBG Lactic Acid 2.1 H Carbon Dioxide BUN Creatinine Glucose C-Reactive Protein C-React Prot High Sens NT-Pro-B Natriuret Pep Albumin Procalcitonin 3.34 H 04/22/20 04/22/20 04/22/20 10:13 10:13 10:13 WBC 22.0 H RBC Hgb Hct Neut % (Auto) 93.0 H Lymph % (Auto) 1.5 L Lymph # (Auto) 0.33 L [place] # (Auto) 1.02 H Absolute Neutrophils 20.45 H PT INR D-Dimer 1.11 H VBG Lactic Acid Carbon Dioxide 21 L BUN 39 H Creatinine 1.5 H Glucose 120 H C-Reactive Protein C-React Prot High Sens NT-Pro-B Natriuret Pep Albumin Procalcitonin Meds: Medications Acetaminophen (Tylenol) 650 mg PO Q6HP PRN; Protocol PRN Reason: Per Pain Protocol/Fever > 101 Last Admin: 04/23/20 00:19 Dose: 650 mg Documented by: Albuterol/Ipratropium (Duoneb) 3 ml NEB Q4HRT [facility] Last Admin: 04/23/20 15:32 Dose: 3 ml Documented by: Diltiazem HCl (Cardizem Sr) 120 mg PO BID [facility] Last Admin: 04/23/20 08:11 Dose: 120 mg Documented by: Docusate Sodium (Colace) 100 mg PO BID [facility] Last Admin: 04/23/20 08:11 Dose: 100 mg Documented by: Enoxaparin Sodium (Lovenox) 100 mg SQ BID [facility] Last Admin: 04/23/20 08:11 Dose: 100 mg Documented by: Sodium Chloride (Sodium Chloride 0.9%) 250 mls @ 20 mls/hr IV .[id number] [facility] Last Admin: 04/23/20 14:35 Dose: Not Given Documented by: Sodium Chloride (Sodium Chloride 0.9%) 1,000 mls @ 50 mls/hr IV .Q20H [facility] Last Admin: 04/23/20 11:18 Dose: Not Given Documented by: Azithromycin 500 mg/ Dextrose 250 mls @ 250 mls/hr IV Q24H [facility]; Protocol Stop: 04/25/20 09:59 Last Infusion: 04/23/20 09:25 Dose: Infused Documented by: Piperacillin Sod/Tazobactam (Sod 3.375 gm/ Dextrose) 50 mls @ 100 mls/hr IV Q6H [facility]; Protocol Last Infusion: 04/23/20 13:25 Dose: Infused Documented by: Sodium Chloride (Sodium Chloride 0.9%) 250 mls @ 20 mls/hr IV .[id number] [facility] Last Admin: 04/23/20 15:47 Dose: Not Given Documented by: Vasopressin 20 unit/ Dextrose 100 mls @ 6 mls/hr IV PRN PRN; Protocol PRN Reason: Hypotension Lactulose (Cephulac) 10 gm PO DAILYP PRN PRN Reason: Constipation Levalbuterol HCl (Xopenex) 0.63 mg NEB Q4HP PRN PRN Reason: Dyspnea Melatonin (Melatonin 3mg Tablet) 3 mg PO HSP [facility] Last Admin: 04/22/20 22:04 Dose: 3 mg Documented by: Oxycodone HCl (Roxicodone) 5 mg PO Q6HP PRN; Protocol PRN Reason: Pain Last Admin: 04/23/20 01:10 Dose: 5 mg Documented by: Pantoprazole Sodium (Protonix) 40 mg PO QAMAC [facility] Last Admin: 04/23/20 08:11 Dose: 40 mg Documented by: Pramipexole Dihydrochloride (Mirapex) 1.5 mg PO HS [facility] Last Admin: 04/22/20 21:06 Dose: 1.5 mg Documented by: Pravastatin Sodium (Pravachol) 20 mg PO DAILY [facility] Last Admin: 04/23/20 13:46 Dose: 20 mg Documented by: Promethazine HCl (Phenergan) 12.5 mg PO Q6HP PRN; Protocol PRN Reason: Nausea And Vomiting Sertraline HCl (Zoloft) 100 mg PO DAILY [facility] Last Admin: 04/23/20 08:11 Dose: 100 mg Documented by: Sodium Chloride (Saline Flush) 10 ml IV Q8 [facility] Last Admin: 04/23/20 13:46 Dose: 10 ml Documented by: Tamsulosin HCl (Flomax) 0.4 mg PO QHS [facility] Last Admin: 04/22/20 21:02 Dose: 0.4 mg Documented by: A/P Narrative A/P Narrative: 1. Septic shock 2nd to pneumonia Gentle IV fluid Antibiotics Vasopressin, MAP 65 2. Acute respiratory failure Pulse ox Oxygen therapy to keep oxygen saturation greater than 92% Troponin negative, less than 0.01 3. Pneumonia, CAP, aspiration or Covid 19 Rapid Covid test negative in the ER, PCR test pending Blood culture pending Sputum culture pending MRSA screen negative Azithromycin and Zosyn Speech pathology consult I would like to initiate steroid treatment now. Therapeutic lovenox was intiated already. 4. EVIE or EVIE on CKD creatinine 1.1 on 02/04/2019 1.3 today IV fluid Repeat renal function morning 5. Paroxysmal atrial fibrillation Continue diltiazem 120 mg daily Patient is on Eliquis which he is on hold Lovenox 100 mg twice daily 6. Hx of COPD Inhalers 7. Pulmonary fibrosis, unspecified Continue inhalers 8. Hx of DVT Lovenox 100 mg twice daily 9. Hx of custodial use of opiate analgesic Continue home medication oxycodone 10. Elevation of D-dimer Could result from COVID-19 infection. Rapid Covid test negative, CPR testing pending Patient is on Eliquis but the patient has history DVT I would like to hold his Eliquis Started Lovenox 100 mg twice daily Echocardiogram 11. DVT prophylaxis: Lovenox Time Spent With Patient Time: Total time spent is greater than 50% in coordination of care (as documented) at patient's floor/unit and/or counseling patient: QUALITY VTE Deep Vein Thrombosis/Pulmonary Embolism Present on Admission: No
[2020-04-23] MEDS ORDERED: DEXAMETHASONE 4 MG TABLET PO SCH (17:25)
[2020-04-23] MEDS: DEXAMETHASONE 4 MG TABLET PO SCH (17:56)
[2020-04-23] MEDS ORDERED: METOPROLOL TARTRATE 5 MG/5 ML VIAL IV PRN (18:49)
[2020-04-23] MEDS ORDERED: METOPROLOL TARTRATE 5 MG/5 ML VIAL IV ONE (19:04)
[2020-04-23] MEDS: METOPROLOL TARTRATE 25 MG TABLET PO SCH ×2 (19:40→21:28)
[2020-04-23] MEDS ORDERED: METOPROLOL TARTRATE 25 MG TABLET PO SCH ×2 (21:00)
[2020-04-23] MEDS: PRAMIPEXOLE 1 MG TABLET PO SCH (21:27)
[2020-04-23] MEDS: MELATONIN 3 MG TABLET PO SCH (21:27)
[2020-04-23] MEDS: TAMSULOSIN 0.4 MG CAPSULE PO SCH (21:28)
[2020-04-24] MEDS: PIPERACILLIN SODIUM/TAZOBACTAM 3.375 GM in DEXTROSE 5% IN WATER 50 ML IV SCH ×4 (00:07→18:25)
[2020-04-24] MEDS: oxyCODONE HCL 5 MG TABLET PO PRN (00:12)
[2020-04-24] MEDS: IPRATROPIUM/ALBUTEROL 3 ML AMPUL.NEB NEB SCH ×6 (04:08→23:19)
[2020-04-24] MEDS: 0.9 % SODIUM CHLORIDE 250 ML IV SCH ×4 (04:08→19:21)
[2020-04-24] MEDS: 0.9 % SODIUM CHLORIDE 10 ML SYRINGE IV SCH ×4 (05:43→22:46)
[2020-04-24 07:04] LABS: Basophils # (Auto) 0.01 K/mcL (0.00-0.20); Basophils % (Auto) 0.1 % (0.0-2.0); Eosinophils # (Auto) 0 K/mcL (0.00-0.70); Eosinophils % (Auto) 0 % (0.0-7.0); Hematocrit 38.3 % (41.0-55.0); Lymphocytes # (Auto) 0.51 K/mcL (1.50-4.80); Lymphocytes % (Auto) 4.8 % (15.0-49.0); Mean Cell Volume 94.3 fL (80.0-100.0); Mean Corpuscular HGB Conc 33.9 g/dL (31.0-36.0); Mean Platelet Volume 10.3 fL (7.4-10.4); Monocytes # (Auto) 0.23 K/mcL (0.10-0.90); Monocytes % (Auto) 2.2 % (1.0-12.0); Neutrophils % (Auto) 92.9 % (38.0-78.0); Platelet Count 248 K/mcL (140-440); RBC 4.06 M/mcL (4.50-5.90); WBC 10.5 K/mcL (4.5-11.0)
[2020-04-24] MEDS: PANTOPRAZOLE 40 MG TABLET PO SCH (07:27)
[2020-04-24 07:43] LABS: ALT/SGPT 17 U/L (<40); AST/SGOT 28 U/L (<40); Albumin 3.1 gm/dL (3.2-5.2); Alkaline Phosphatase 76 U/L (39-117); Bilirubin,Total 0.4 mg/dL (0.1-1.0); Blood Urea Nitrogen 24 mg/dL (8-23); Calcium 8.6 mg/dL (8.6-10.4); Carbon Dioxide 18 mmol/L (22-30); Chloride 101 mmol/L (96-108); Globulin 3.1 gm/dL (2.2-3.7); Glomerular Filtration Rate 71; Glucose 134 mg/dL (70-105)
[2020-04-24] MEDS ORDERED: CETIRIZINE 10 MG TABLET PO SCH (09:00)
[2020-04-24] MEDS ORDERED: DEXAMETHASONE 4 MG TABLET PO SCH ×2 (09:00)
[2020-04-24] MEDS: ENOXAPARIN 100 MG/ML SYRINGE SQ SCH ×3 (10:05→20:39)
[2020-04-24] MEDS: AZITHROMYCIN 500 MG in DEXTROSE 5% IN WATER 250 ML IV SCH (10:05)
[2020-04-24] MEDS: DOCUSATE SODIUM 100 MG CAPSULE PO SCH ×3 (10:06→20:36)
[2020-04-24] MEDS: PRAVASTATIN 40 MG TABLET PO SCH (10:06)
[2020-04-24] MEDS: METOPROLOL TARTRATE 25 MG TABLET PO SCH ×3 (10:06→20:35)
[2020-04-24] MEDS: SERTRALINE 100 MG TABLET PO SCH ×2 (10:06→13:59)
[2020-04-24] MEDS: DILTIAZEM 120 MG CAP.XL.24H PO SCH ×3 (10:06→20:37)
[2020-04-24] MEDS: CETIRIZINE 10 MG TABLET PO SCH (10:06)
[2020-04-24] MEDS: DEXAMETHASONE 4 MG TABLET PO SCH (13:59)
--- NOTE | 2020-04-24 14:54 | Internal Med Progress Note ---
SUBJECTIVE Subjective Patient information: Note initiated : 04/24/20 at 2:52 pm Service Date, if different from initiated Date: [] Patient: Mil Fang a 79 y/o M admitted on 04/22/20 for weakness. Chief Complaint: [] Mr. Fang is a 79 year old M with a past medical history of paroxysmal atrial f ibrillation, COPD, pulmonary fibrosis, history of DVT, and history of long-term use of opiate who presented to the ER due to acute shortness of breath associated with a cough. At the per patient, he has been having acute shortness of breath associated with dry cough. He also feels tired. In the ER, rapid Covid test negative. X-ray showed moderate right mid and lower lung infiltrate. His D-dimer was elevated in the ER. But he is on Eliquis for atrial fibrillation. 04/23 Patient still complains of shortness of breath. Denies nausea, vomiting, or diarrhea. Blood pressure still soft 93/60, heart rate 90, He is on 3 to 4 L Creatinine 1.3 D-dimer 0.81, ferritin 225, CRP 186, procalcitonin 588, troponin less than 0.01 04/24 Patient feels fine and does not have any new complaints. Denies fever, chills, nausea, vomiting, or diarrhea He is on 3 L WBC 10.5, it was 19.7 yesterday Creatinine 1.0 Ferritin 225 CRP went down to 157 from 185 yesterday Review of Systems Review of systems: Positive for shortness of breath. All other systems were reviewed and are negative. Constitutional Vitals: Vital Signs Temp Pulse Resp BP Pulse Ox 99.3 F H 103 H 18 141/111 97 04/24/20 12:01 04/24/20 12:01 04/24/20 12:01 04/24/20 12:01 04/24/20 12:01 Period Temp Pulse Resp BP Sys/Armando Pulse Ox Last 24 Hr 97.5 F-99.6 F 77-126 16-28 104-141/54-111 93-98 Intake and Output 04/24/20 04/24/20 04/24/20 05:59 13:59 21:59 Intake Total 290 1190 520 Output Total 975 Balance -685 1190 520 Weight 98.702 kg Intake & Output: Intake & Output 04/24/20 04/24/20 04/24/20 05:59 13:59 21:59 Intake Total 290 1190 520 Output Total 975 Balance -685 1190 520 Weight 98.702 kg Intake: IV 50 350 Zithromax 500 mg In Dextrose 5% 250 in Water 250 ml @ 250 mls/hr IV Q24H [facility] Rx#:[id number] Zosyn 3.375 gm In Dextrose 5% 50 100 in Water 50 ml @ 100 mls/hr IV Q6H [facility] Rx#:[id number] Oral 240 840 520 Output: Void Amount 975 Other: Meal Breakfast Lunch Percent of Meal Consumed 100% 100% Feeding Ability Independent Urine Appearance Clear Urine Color Bright Yellow Urine Odor Normal Additional findings Additional findings: General - No acute distress Eyes - PERRLA, EOM intact ENT no rhinorrhea, no noticeable or palpable swelling Neck supple, no JVD, no thyromegaly Respiratory: Lungs -diminished breathing sounds, right basilar crackle. Cardiovascular -irregular irregular rhythm, no m/r/g, GI - Normal bowel sounds, no distended, soft. Extremeties - No edema, cyanosis or clubbing Hemo/lymphatic/immune no lymphadenopathy Neurological Alert and oriented x 3, no focal neurological deficits. Psychiatry flat affect OBJ DATA Labs CBC & Chem 7: 04/24/20 04:34 04/24/20 04:34 Labs: Abnormal Lab Results 04/24/20 04/24/20 04/24/20 04:34 04:34 04:34 WBC RBC 4.06 L Hgb 13.0 L Hct 38.3 L Neut % (Auto) 92.9 H Lymph % (Auto) 4.8 L Lymph # (Auto) 0.51 L [place] # (Auto) Absolute Neutrophils 9.79 H PT INR D-Dimer VBG Lactic Acid Carbon Dioxide 18 L Anion Gap 17.0 H BUN 24 H Creatinine Glucose 134 H C-Reactive Protein C-React Prot High Sens 157.0 H NT-Pro-B Natriuret Pep Albumin 3.1 L Procalcitonin 04/23/20 04/23/20 04/23/20 09:45 09:45 09:45 WBC RBC Hgb Hct Neut % (Auto) Lymph % (Auto) Lymph # (Auto) [place] # (Auto) Absolute Neutrophils PT INR D-Dimer 0.81 H VBG Lactic Acid Carbon Dioxide Anion Gap BUN Creatinine Glucose C-Reactive Protein C-React Prot High Sens 185.7 H NT-Pro-B Natriuret Pep Albumin Procalcitonin 5.88 H 04/23/20 04/23/20 04/22/20 04:07 04:07 13:06 WBC 19.7 H RBC 4.02 L Hgb 12.7 L Hct 37.6 L Neut % (Auto) 85.3 H Lymph % (Auto) 7.9 L Lymph # (Auto) [place] # (Auto) 1.24 H Absolute Neutrophils 16.77 H PT INR D-Dimer VBG Lactic Acid Carbon Dioxide 18 L Anion Gap BUN 36 H Creatinine 1.3 H Glucose C-Reactive Protein 3.00 H C-React Prot High Sens NT-Pro-B Natriuret Pep 507.3 H Albumin 3.0 L Procalcitonin 04/22/20 04/22/20 04/22/20 13:06 13:06 10:13 WBC RBC Hgb Hct Neut % (Auto) Lymph % (Auto) Lymph # (Auto) [place] # (Auto) Absolute Neutrophils PT 17.1 H INR 1.3 H D-Dimer VBG Lactic Acid 2.1 H Carbon Dioxide Anion Gap BUN Creatinine Glucose C-Reactive Protein C-React Prot High Sens NT-Pro-B Natriuret Pep Albumin Procalcitonin 3.34 H 04/22/20 04/22/20 04/22/20 10:13 10:13 10:13 WBC 22.0 H RBC Hgb Hct Neut % (Auto) 93.0 H Lymph % (Auto) 1.5 L Lymph # (Auto) 0.33 L [place] # (Auto) 1.02 H Absolute Neutrophils 20.45 H PT INR D-Dimer 1.11 H VBG Lactic Acid Carbon Dioxide 21 L Anion Gap BUN 39 H Creatinine 1.5 H Glucose 120 H C-Reactive Protein C-React Prot High Sens NT-Pro-B Natriuret Pep Albumin Procalcitonin Meds: Medications Acetaminophen (Tylenol) 650 mg PO Q6HP PRN; Protocol PRN Reason: Per Pain Protocol/Fever > 101 Last Admin: 04/23/20 00:19 Dose: 650 mg Documented by: Albuterol/Ipratropium (Duoneb) 3 ml NEB Q4HRT [facility] Last Admin: 04/24/20 11:07 Dose: 3 ml Documented by: Cetirizine HCl (Zyrtec) 10 mg PO DAILY [facility] Last Admin: 04/24/20 10:06 Dose: 10 mg Documented by: Dexamethasone (Decadron) 6 mg PO DAILY [facility] Last Admin: 04/24/20 10:07 Dose: 6 mg Documented by: Diltiazem HCl (Cardizem Sr) 120 mg PO BID [facility] Last Admin: 04/24/20 10:06 Dose: 120 mg Documented by: Docusate Sodium (Colace) 100 mg PO BID [facility] Last Admin: 04/24/20 10:06 Dose: 100 mg Documented by: Enoxaparin Sodium (Lovenox) 100 mg SQ BID [facility] Last Admin: 04/24/20 10:05 Dose: 100 mg Documented by: Sodium Chloride (Sodium Chloride 0.9%) 250 mls @ 20 mls/hr IV .[id number] [facility] Last Admin: 04/24/20 04:08 Dose: Not Given Documented by: Sodium Chloride (Sodium Chloride 0.9%) 1,000 mls @ 50 mls/hr IV .Q20H [facility] Last Admin: 04/23/20 18:55 Dose: 50 mls/hr Documented by: Azithromycin 500 mg/ Dextrose 250 mls @ 250 mls/hr IV Q24H [facility]; Protocol Stop: 04/25/20 09:59 Last Infusion: 04/24/20 11:10 Dose: Infused Documented by: Piperacillin Sod/Tazobactam (Sod 3.375 gm/ Dextrose) 50 mls @ 100 mls/hr IV Q6H [facility]; Protocol Last Infusion: 04/24/20 13:15 Dose: Infused Documented by: Sodium Chloride (Sodium Chloride 0.9%) 250 mls @ 20 mls/hr IV .[id number] [facility] Last Admin: 04/24/20 04:08 Dose: Not Given Documented by: Vasopressin 20 unit/ Dextrose 100 mls @ 6 mls/hr IV PRN PRN; Protocol PRN Reason: Hypotension Lactulose (Cephulac) 10 gm PO DAILYP PRN PRN Reason: Constipation Last Admin: 04/24/20 10:05 Dose: 10 gm Documented by: Levalbuterol HCl (Xopenex) 0.63 mg NEB Q4HP PRN PRN Reason: Dyspnea Last Admin: 04/23/20 19:30 Dose: 0.63 mg Documented by: Melatonin (Melatonin 3mg Tablet) 3 mg PO HSP [facility] Last Admin: 04/23/20 21:27 Dose: 3 mg Documented by: Metoprolol Tartrate (Lopressor) 12.5 mg PO BID [facility] Last Admin: 04/24/20 10:06 Dose: 12.5 mg Documented by: Oxycodone HCl (Roxicodone) 5 mg PO Q6HP PRN; Protocol PRN Reason: Pain Last Admin: 04/24/20 00:12 Dose: 5 mg Documented by: Pantoprazole Sodium (Protonix) 40 mg PO QAMAC [facility] Last Admin: 04/24/20 07:27 Dose: 40 mg Documented by: Pramipexole Dihydrochloride (Mirapex) 1.5 mg PO HS [facility] Last Admin: 04/23/20 21:27 Dose: 1.5 mg Documented by: Pravastatin Sodium (Pravachol) 20 mg PO DAILY [facility] Last Admin: 04/24/20 10:06 Dose: 20 mg Documented by: Promethazine HCl (Phenergan) 12.5 mg PO Q6HP PRN; Protocol PRN Reason: Nausea And Vomiting Sertraline HCl (Zoloft) 100 mg PO DAILY [facility] Last Admin: 04/24/20 10:06 Dose: 100 mg Documented by: Sodium Chloride (Saline Flush) 10 ml IV Q8 [facility] Last Admin: 04/24/20 12:43 Dose: 10 ml Documented by: Tamsulosin HCl (Flomax) 0.4 mg PO QHS [facility] Last Admin: 04/23/20 21:28 Dose: 0.4 mg Documented by: A/P Narrative A/P Narrative: 1. Septic shock 2nd to pneumonia Gentle IV fluid Antibiotics was off Vasopressin 2. Acute respiratory failure Pulse ox Oxygen therapy to keep oxygen saturation greater than 92% Troponin negative x 3. Pneumonia, CAP, aspiration or Covid 19 Rapid Covid test negative in the ER, PCR test pending Blood culture pending Sputum culture pending MRSA screen negative Dexamethasone 6 mg p.o. daily Lovenox 100 mg twice daily Azithromycin and Zosyn Speech pathology consult Initial orders 4. EVIE or EVIE on CKD creatinine 1.1 on 02/04/2019 1.0 today IV fluid Repeat renal function morning 5. Paroxysmal atrial fibrillation Continue diltiazem 120 mg daily Patient is on Eliquis which he is on hold Lovenox 100 mg twice daily 6. Hx of COPD Inhalers 7. Pulmonary fibrosis, unspecified Continue inhalers 8. Hx of DVT Lovenox 100 mg twice daily 9. Hx of skilled nursing use of opiate analgesic Continue home medication oxycodone 10. Elevation of D-dimer Could result from COVID-19 infection. Rapid Covid test negative, CPR testing pending Patient is on Eliquis but the patient has history DVT I would like to hold his Eliquis Started Lovenox 100 mg twice daily Echocardiogram 11. DVT prophylaxis: Lovenox Time Spent With Patient Time: Total time spent is greater than 50% in coordination of care (as documented) at patient's floor/unit and/or counseling patient: QUALITY VTE Deep Vein Thrombosis/Pulmonary Embolism Present on Admission: No
--- NOTE | 2020-04-24 17:11 | XRay Report ---
CLINICAL INFORMATION: constipation COMPARISON: None. FINDINGS: Moderate stool seen within the colon - particularly the ascending segment. Stomach and small bowel are grossly normal. No free air, soft tissue mass or pathologic calcification. IMPRESSION: Moderate colonic stool no acute disease Interpreted and Authenticated by: Uriel Lobo 04/24/20
[2020-04-24] MEDS: TAMSULOSIN 0.4 MG CAPSULE PO SCH (20:36)
[2020-04-24] MEDS: MELATONIN 3 MG TABLET PO SCH (20:37)
[2020-04-24] MEDS: PRAMIPEXOLE 1 MG TABLET PO SCH (20:37)
[2020-04-25] MEDS: PIPERACILLIN SODIUM/TAZOBACTAM 3.375 GM in DEXTROSE 5% IN WATER 50 ML IV SCH ×5 (00:28→23:09)
[2020-04-25] MEDS: 0.9 % SODIUM CHLORIDE 1,000 ML IV SCH ×2 (00:46→05:00)
[2020-04-25] MEDS: oxyCODONE HCL 5 MG TABLET PO PRN (00:58)
[2020-04-25] MEDS: IPRATROPIUM/ALBUTEROL 3 ML AMPUL.NEB NEB SCH ×6 (04:55→23:14)
[2020-04-25] MEDS: 0.9 % SODIUM CHLORIDE 250 ML IV SCH ×2 (05:02)
[2020-04-25] MEDS: 0.9 % SODIUM CHLORIDE 10 ML SYRINGE IV SCH ×3 (05:02→23:09)
[2020-04-25 05:47] LABS: Basophils # (Auto) 0.01 K/mcL (0.00-0.20); Basophils % (Auto) 0.1 % (0.0-2.0); Eosinophils # (Auto) 0 K/mcL (0.00-0.70); Eosinophils % (Auto) 0 % (0.0-7.0); Hematocrit 36.5 % (41.0-55.0); Hemoglobin 12.5 g/dL (13.5-16.5); Lymphocytes # (Auto) 0.56 K/mcL (1.50-4.80); Lymphocytes % (Auto) 4.4 % (15.0-49.0); Mean Cell Volume 92.9 fL (80.0-100.0); Mean Corpuscular HGB Conc 34.2 g/dL (31.0-36.0); Mean Platelet Volume 10.2 fL (7.4-10.4); Monocytes # (Auto) 0.59 K/mcL (0.10-0.90); Monocytes % (Auto) 4.6 % (1.0-12.0); Neutrophils % (Auto) 90.9 % (38.0-78.0); Platelet Count 258 K/mcL (140-440); RBC 3.93 M/mcL (4.50-5.90); Red Cell Distribution Width 13.7 % (11.5-14.5); WBC 12.7 K/mcL (4.5-11.0)
[2020-04-25 06:35] LABS: ALT/SGPT 23 U/L (<40); AST/SGOT 30 U/L (<40); Albumin 3.1 gm/dL (3.2-5.2); Alkaline Phosphatase 69 U/L (39-117); Bilirubin,Total 0.4 mg/dL (0.1-1.0); Blood Urea Nitrogen 26 mg/dL (8-23); Calcium 8.5 mg/dL (8.6-10.4); Carbon Dioxide 18 mmol/L (22-30); Chloride 102 mmol/L (96-108); Globulin 3.1 gm/dL (2.2-3.7); Glomerular Filtration Rate 81; Glucose 117 mg/dL (70-105)
[2020-04-25] MEDS ORDERED: AZITHROMYCIN 500 MG in DEXTROSE 5% IN WATER 250 ML IV SCH ×2 (07:00→09:00)
[2020-04-25] MEDS ORDERED: DEXAMETHASONE 4 MG TABLET PO SCH (09:00)
[2020-04-25] MEDS: DILTIAZEM 120 MG CAP.XL.24H PO SCH ×2 (09:29→21:32)
[2020-04-25] MEDS: METOPROLOL TARTRATE 25 MG TABLET PO SCH ×2 (09:29→21:33)
[2020-04-25] MEDS: PANTOPRAZOLE 40 MG TABLET PO SCH (09:29)
[2020-04-25] MEDS: ENOXAPARIN 100 MG/ML SYRINGE SQ SCH ×2 (09:29→21:34)
[2020-04-25] MEDS: DOCUSATE SODIUM 100 MG CAPSULE PO SCH ×2 (09:29→21:32)
[2020-04-25] MEDS: PRAVASTATIN 40 MG TABLET PO SCH (09:30)
[2020-04-25] MEDS: SERTRALINE 100 MG TABLET PO SCH (09:34)
[2020-04-25] MEDS: CETIRIZINE 10 MG TABLET PO SCH (09:34)
--- NOTE | 2020-04-25 11:37 | XRay Report ---
HISTORY: Follow-up right side pulmonary infiltrate, increased weakness, pulmonary crackles, gaining weight and fluid intake greater than output FINDINGS: There is a generalized streaky infiltrate throughout the right lung. This has improved since the prior x-ray done on 04/22/20. No pleural effusion is present. There are mildly prominent lung markings centrally, which may be related to mild fluid overload. There is no pulmonary edema in the left lung. The heart is borderline enlarged and has increased in size since 02/16/20. Spinal electrical stimulator wires remain well-positioned in the midthoracic spine. IMPRESSION: Improving infiltrate in right lung borderline pulmonary vascular congestion Interpreted and Authenticated by: George Stafford 04/25/20
[2020-04-25] MEDS ORDERED: LEVALBUTEROL 0.63 MG/3 ML AMPUL.NEB NEB PRN (14:27)
[2020-04-25] MEDS ORDERED: LACTULOSE 20 GM/30 ML ORAL.SOL PO PRN (14:27)
[2020-04-25] MEDS ORDERED: ACETAMINOPHEN 325 MG TABLET PO PRN (14:27)
[2020-04-25] MEDS ORDERED: 0.9 % SODIUM CHLORIDE 250 ML IV SCH ×3 (14:27)
[2020-04-25] MEDS ORDERED: PROMETHAZINE 25 MG TABLET PO PRN (14:27)
[2020-04-25] MEDS ORDERED: MELATONIN 3 MG TABLET PO SCH (14:27)
[2020-04-25] MEDS ORDERED: VASOPRESSIN 20 UNIT in DEXTROSE 5% IN WATER 99 ML IV PRN (14:27)
[2020-04-25] MEDS: PRAMIPEXOLE 1 MG TABLET PO SCH (21:31)
[2020-04-25] MEDS: TAMSULOSIN 0.4 MG CAPSULE PO SCH (21:32)
--- NOTE | 2020-04-25 22:15 | Internal Med Progress Note ---
SUBJECTIVE Subjective Patient information: Note initiated : 04/25/20 at 10:14 pm Service Date, if different from initiated Date: [] Patient: Mil Fang a 79 y/o M admitted on 04/22/20 for weakness. Chief Complaint: [] Mr. Fang is a 79 year old M with a past medical history of paroxysmal atrial f ibrillation, COPD, pulmonary fibrosis, history of DVT, and history of long-term use of opiate who presented to the ER due to acute shortness of breath associated with a cough. At the per patient, he has been having acute shortness of breath associated with dry cough. He also feels tired. In the ER, rapid Covid test negative. X-ray showed moderate right mid and lower lung infiltrate. His D-dimer was elevated in the ER. But he is on Eliquis for atrial fibrillation. 04/23 Patient still complains of shortness of breath. Denies nausea, vomiting, or diarrhea. Blood pressure still soft 93/60, heart rate 90, He is on 3 to 4 L Creatinine 1.3 D-dimer 0.81, ferritin 225, CRP 186, procalcitonin 588, troponin less than 0.01 04/24 Patient feels fine and does not have any new complaints. Denies fever, chills, nausea, vomiting, or diarrhea He is on 3 L WBC 10.5, it was 19.7 yesterday Creatinine 1.0 Ferritin 225 CRP went down to 157 from 185 yesterday 04/25 Pt does not have medical complaints. No overnight event. Covid CPR test came back - negative. He is now on 0-1L. creatinine 0.9 CRP 62.1 from 157 Speech pathology saw pt - no dysphagia. Review of Systems Review of systems: Positive for shortness of breath. All other systems were reviewed and are negative. Constitutional Vitals: Vital Signs Temp Pulse Resp BP Pulse Ox 98.6 F 105 H 24 H 146/84 92 04/25/20 19:47 04/25/20 19:47 04/25/20 19:47 04/25/20 19:47 04/25/20 19:47 Period Temp Pulse Resp BP Sys/Armando Pulse Ox Last 24 Hr 98.0 F-98.6 F 70-107 16-24 127-159/77-101 91-96 Intake and Output 04/25/20 04/25/20 04/26/20 13:59 21:59 05:59 Intake Total 1070 1160 Output Total 200 1800 Balance 870 -640 Weight 101.831 kg 102.875 kg Patient Weight 04/26/20 05:59 Weight 102.875 kg Intake & Output: Intake & Output 04/25/20 04/25/20 04/26/20 13:59 21:59 05:59 Intake Total 1070 1160 Output Total 200 1800 Balance 870 -640 Weight 101.831 kg 102.875 kg Intake: IV 350 Zithromax 500 mg In Dextrose 5% 250 in Water 250 ml @ 250 mls/hr IV DAILY [facility] Rx#:[id number] Zosyn 3.375 gm In Dextrose 5% 100 in Water 50 ml @ 100 mls/hr IV Q6H [facility] Rx#:[id number] Oral 720 1160 Output: Void Amount 200 1800 Other: Meal Dinner Percent of Meal Consumed 100% Feeding Ability Independent Urine Appearance Clear Clear Urine Color Bright Yellow Pale Urine Odor Normal Normal Additional findings Additional findings: General - No acute distress Eyes - PERRLA, EOM intact ENT no rhinorrhea, no noticeable or palpable swelling Neck supple, no JVD, no thyromegaly Respiratory: Lungs -diminished breathing sounds, right basilar crackle. Cardiovascular -irregular irregular rhythm, no m/r/g, GI - Normal bowel sounds, no distended, soft. Extremeties - No edema, cyanosis or clubbing Hemo/lymphatic/immune no lymphadenopathy Neurological Alert and oriented x 3, no focal neurological deficits. Psychiatry flat affect OBJ DATA Labs CBC & Chem 7: 04/25/20 04:49 04/25/20 04:49 Labs: Abnormal Lab Results 04/25/20 04/25/20 04/25/20 04:50 04:49 04:49 WBC 12.7 H RBC 3.93 L Hgb 12.5 L Hct 36.5 L Neut % (Auto) 90.9 H Lymph % (Auto) 4.4 L Lymph # (Auto) 0.56 L [place] # (Auto) Absolute Neutrophils 11.58 H D-Dimer Carbon Dioxide 18 L Anion Gap BUN 26 H Creatinine Glucose 117 H Calcium 8.5 L C-React Prot High Sens 62.1 H Albumin 3.1 L Procalcitonin 04/24/20 04/24/20 04/24/20 04:34 04:34 04:34 WBC RBC 4.06 L Hgb 13.0 L Hct 38.3 L Neut % (Auto) 92.9 H Lymph % (Auto) 4.8 L Lymph # (Auto) 0.51 L [place] # (Auto) Absolute Neutrophils 9.79 H D-Dimer Carbon Dioxide 18 L Anion Gap 17.0 H BUN 24 H Creatinine Glucose 134 H Calcium C-React Prot High Sens 157.0 H Albumin 3.1 L Procalcitonin 04/23/20 04/23/20 04/23/20 09:45 09:45 09:45 WBC RBC Hgb Hct Neut % (Auto) Lymph % (Auto) Lymph # (Auto) [place] # (Auto) Absolute Neutrophils D-Dimer 0.81 H Carbon Dioxide Anion Gap BUN Creatinine Glucose Calcium C-React Prot High Sens 185.7 H Albumin Procalcitonin 5.88 H 04/23/20 04/23/20 04:07 04:07 WBC 19.7 H RBC 4.02 L Hgb 12.7 L Hct 37.6 L Neut % (Auto) 85.3 H Lymph % (Auto) 7.9 L Lymph # (Auto) [place] # (Auto) 1.24 H Absolute Neutrophils 16.77 H D-Dimer Carbon Dioxide 18 L Anion Gap BUN 36 H Creatinine 1.3 H Glucose Calcium C-React Prot High Sens Albumin 3.0 L Procalcitonin Meds: Medications Acetaminophen (Tylenol) 650 mg PO Q6HP PRN; Protocol PRN Reason: Per Pain Protocol/Fever > 101 Albuterol/Ipratropium (Duoneb) 3 ml NEB Q4HRT [facility] Last Admin: 04/25/20 19:28 Dose: 3 ml Documented by: Cetirizine HCl (Zyrtec) 10 mg PO DAILY [facility] Dexamethasone (Decadron) 4 mg PO DAILY [facility] Diltiazem HCl (Cardizem Sr) 120 mg PO BID [facility] Last Admin: 04/25/20 21:32 Dose: 120 mg Documented by: Docusate Sodium (Colace) 100 mg PO BID [facility] Last Admin: 04/25/20 21:32 Dose: 100 mg Documented by: Enoxaparin Sodium (Lovenox) 100 mg SQ BID [facility] Last Admin: 04/25/20 21:34 Dose: 100 mg Documented by: Azithromycin 500 mg/ Dextrose 250 mls @ 250 mls/hr IV DAILY [facility]; Protocol Stop: 04/26/20 09:59 Piperacillin Sod/Tazobactam (Sod 3.375 gm/ Dextrose) 50 mls @ 100 mls/hr IV Q6H [facility]; Protocol Last Admin: 04/25/20 18:45 Dose: 100 mls/hr Documented by: Vasopressin 20 unit/ Dextrose 100 mls @ 6 mls/hr IV PRN PRN; Protocol PRN Reason: Hypotension Lactulose (Cephulac) 10 gm PO DAILYP PRN PRN Reason: Constipation Levalbuterol HCl (Xopenex) 0.63 mg NEB Q4HP PRN PRN Reason: Dyspnea Melatonin (Melatonin 3mg Tablet) 3 mg PO HSP [facility] Last Admin: 04/25/20 21:39 Dose: 3 mg Documented by: Metoprolol Tartrate (Lopressor) 12.5 mg PO BID [facility] Last Admin: 04/25/20 21:33 Dose: 12.5 mg Documented by: Oxycodone HCl (Roxicodone) 5 mg PO Q6HP PRN; Protocol PRN Reason: Pain Pantoprazole Sodium (Protonix) 40 mg PO QAMAC [facility] Pramipexole Dihydrochloride (Mirapex) 1.5 mg PO HS [facility] Last Admin: 04/25/20 21:31 Dose: 1.5 mg Documented by: Pravastatin Sodium (Pravachol) 20 mg PO DAILY [facility] Promethazine HCl (Phenergan) 12.5 mg PO Q6HP PRN; Protocol PRN Reason: Nausea And Vomiting Sertraline HCl (Zoloft) 100 mg PO DAILY [facility] Sodium Chloride (Saline Flush) 10 ml IV Q8 [facility] Tamsulosin HCl (Flomax) 0.4 mg PO QHS [facility] Last Admin: 04/25/20 21:32 Dose: 0.4 mg Documented by: A/P Narrative A/P Narrative: 1. Septic shock 2nd to pneumonia Gentle IV fluid Antibiotics was off Vasopressin 2. Acute respiratory failure Pulse ox Oxygen therapy to keep oxygen saturation greater than 92% Troponin negative He is now on RM-1L 3. Pneumonia, CAP, aspiration or Covid 19 Rapid Covid test negative in the ER, PCR test negative Blood culture pending Sputum culture pending MRSA screen negative Speech pathology no concern about dysphagia decreased Dexamethasone to 4mg po daily from 6 mg p.o. daily Lovenox 100 mg twice daily Azithromycin and Zosyn Initial orders 4. EVIE or EVIE on CKD creatinine 1.1 on 02/04/2019 0.9 today IV fluid Repeat renal function morning 5. Paroxysmal atrial fibrillation Continue diltiazem 120 mg daily Patient is on Eliquis which he is on hold Lovenox 100 mg twice daily 6. Hx of COPD Inhalers 7. Pulmonary fibrosis, unspecified Continue inhalers 8. Hx of DVT Lovenox 100 mg twice daily 9. 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 Elevation of D-dimer Could result from COVID-19 infection. Rapid Covid test negative, CPR testing pending Patient is on Eliquis but the patient has history DVT I would like to hold his Eliquis Started Lovenox 100 mg twice daily Echocardiogram 11. DVT prophylaxis: Lovenox Time Spent With Patient Time: Total time spent is greater than 50% in coordination of care (as docume nted) at patient's floor/unit and/or counseling patient: QUALITY VTE Deep Vein Thrombosis/Pulmonary Embolism Present on Admission: No
[2020-04-26] MEDS: oxyCODONE HCL 5 MG TABLET PO PRN (00:56)
[2020-04-26] MEDS: IPRATROPIUM/ALBUTEROL 3 ML AMPUL.NEB NEB SCH ×2 (03:07→07:34)
[2020-04-26] MEDS: PIPERACILLIN SODIUM/TAZOBACTAM 3.375 GM in DEXTROSE 5% IN WATER 50 ML IV SCH ×3 (05:31→17:39)
[2020-04-26] MEDS: 0.9 % SODIUM CHLORIDE 10 ML SYRINGE IV SCH ×2 (05:32→12:37)
[2020-04-26] MEDS ORDERED: IPRATROPIUM/ALBUTEROL 3 ML AMPUL.NEB NEB PRN (08:33)
[2020-04-26] MEDS: PANTOPRAZOLE 40 MG TABLET PO SCH (08:48)
[2020-04-26] MEDS: DOCUSATE SODIUM 100 MG CAPSULE PO SCH ×2 (08:49→20:31)
[2020-04-26] MEDS: ENOXAPARIN 100 MG/ML SYRINGE SQ SCH ×2 (08:49→20:31)
[2020-04-26] MEDS: DEXAMETHASONE 4 MG TABLET PO SCH (08:49)
[2020-04-26] MEDS: DILTIAZEM 120 MG CAP.XL.24H PO SCH ×2 (08:49→20:31)
[2020-04-26] MEDS: METOPROLOL TARTRATE 25 MG TABLET PO SCH ×2 (08:49→20:29)
[2020-04-26] MEDS: PRAVASTATIN 40 MG TABLET PO SCH (08:50)
[2020-04-26] MEDS: SERTRALINE 100 MG TABLET PO SCH (08:50)
[2020-04-26] MEDS: CETIRIZINE 10 MG TABLET PO SCH (08:50)
[2020-04-26] MEDS ORDERED: AZITHROMYCIN 500 MG in DEXTROSE 5% IN WATER 250 ML IV SCH (09:00)
[2020-04-26 09:37] LABS: Basophils # (Auto) 0.05 K/mcL (0.00-0.20); Basophils % (Auto) 0.5 % (0.0-2.0); Eosinophils # (Auto) 0 K/mcL (0.00-0.70); Eosinophils % (Auto) 0 % (0.0-7.0); Hematocrit 38.5 % (41.0-55.0); Hemoglobin 12.9 g/dL (13.5-16.5); Lymphocytes # (Auto) 0.89 K/mcL (1.50-4.80); Lymphocytes % (Auto) 8.7 % (15.0-49.0); Mean Cell Volume 93.9 fL (80.0-100.0); Mean Corpuscular HGB Conc 33.5 g/dL (31.0-36.0); Monocytes # (Auto) 0.78 K/mcL (0.10-0.90); Monocytes % (Auto) 7.6 % (1.0-12.0); Neutrophils % (Auto) 83.2 % (38.0-78.0); Platelet Count 297 K/mcL (140-440); Red Cell Distribution Width 13.9 % (11.5-14.5); WBC 10.3 K/mcL (4.5-11.0)
[2020-04-26 10:40] LABS: ALT/SGPT 36 U/L (<40); AST/SGOT 36 U/L (<40); Albumin 3.3 gm/dL (3.2-5.2); Albumin/Globulin Ratio 1.1 (1.0-2.3); Alkaline Phosphatase 65 U/L (39-117); Bilirubin,Direct < 0.2 mg/dL (<0.3); Bilirubin,Total 0.3 mg/dL (0.1-1.0); Blood Urea Nitrogen 26 mg/dL (8-23); Calcium 8.6 mg/dL (8.6-10.4); Carbon Dioxide 19 mmol/L (22-30); Chloride 101 mmol/L (96-108); Globulin 2.9 gm/dL (2.2-3.7); Glomerular Filtration Rate 81; Glucose 105 mg/dL (70-105); Lactate Dehydrogenase 210 U/L (135-225); Triglycerides 72 mg/dL (<150); Uric Acid 3.9 mg/dL (2.5-8.0)
--- NOTE | 2020-04-26 11:01 | Internal Med Progress Note ---
SUBJECTIVE Subjective Patient information: Note initiated : 04/26/20 at 10:55 am Service Date, if different from initiated Date: [] Patient: iMl Fang a 79 y/o M admitted on 04/22/20 for weakness. Chief Complaint: [ Interval history: Mr. Fang is a 79 year old M with a past medical history of paroxysmal atrial fibrillation, COPD, pulmonary fibrosis, history of DVT, and history of long-term use of opiate who presented to the ER due to acute s hortness of breath associated with a cough. At the per patient, he has been having acute shortness of breath associated with dry cough. He also feels tired. In the ER, rapid Covid test negative. X-ray showed moderate right mid and lower lung infiltrate. His D-dimer was elevated in the ER. But he is on Eliquis for atrial fibrillation. 04/23 Patient still complains of shortness of breath. Denies nausea, vomiting, or diarrhea. Blood pressure still soft 93/60, heart rate 90, He is on 3 to 4 L Creatinine 1.3 D-dimer 0.81, ferritin 225, CRP 186, procalcitonin 588, troponin less than 0.01 04/24 Patient feels fine and does not have any new complaints. Denies fever, chills, nausea, vomiting, or diarrhea He is on 3 L WBC 10.5, it was 19.7 yesterday Creatinine 1.0 Ferritin 225 CRP went down to 157 from 185 yesterday 04/25 Pt does not have medical complaints. No overnight event. Covid CPR test came back - negative. He is now on 0-1L. creatinine 0.9 CRP 62.1 from 157 Speech pathology saw pt - no dysphagia. 04/26-patient doing a lot better. White count down to 10,000. Interval improv ement on chest imaging right-sided infiltrate. Currently on room air. Case discussed with patient's Sol on phone. expressed concerns about profound weakness and inability to take care of self. Continuing physical therapies. Discussed option of SNF placement which was unwilling due to concerns of Covid. She however was agreeable to home health services. Patient was seen in room in good spirits. Feels a lot better. However continues to feel weak. Denies shortness of breath, chest pain, diarrhea. Constitutional Vitals: Vital Signs Temp Pulse Resp BP Pulse Ox 97.8 F 111 H 20 148/80 95 04/26/20 02:40 04/26/20 08:43 04/26/20 08:43 04/26/20 08:43 04/26/20 08:43 Period Temp Pulse Resp BP Sys/Armando Pulse Ox Last 24 Hr 97.8 F-98.6 F 94-111 16-24 134-154/80-98 92-96 Intake and Output 04/25/20 04/26/20 04/26/20 21:59 05:59 13:59 Intake Total 1210 100 530 Output Total 1800 1625 Balance -590 -1525 530 Weight 102.875 kg Alert oriented Nonlabored breathing on room air No anxiety Nondistended abdomen Intake & Output: Intake & Output 04/25/20 04/26/20 04/26/20 21:59 05:59 13:59 Intake Total 1210 100 530 Output Total 1800 1625 Balance -590 -1525 530 Weight 102.875 kg Intake: IV 50 50 50 Zosyn 3.375 gm In Dextrose 5% 50 50 50 in Water 50 ml @ 100 mls/hr IV Q6H [facility] Rx#:[id number] Oral 1160 50 480 Output: Void Amount 1800 1625 Other: Meal Dinner Breakfast Percent of Meal Consumed 100% 100% Feeding Ability Independent Independent Urine Appearance Clear Clear Urine Color Pale Pale Urine Odor Normal # Voids 1 # Bowel Movements 1 OBJ DATA Labs CBC & Chem 7: 04/26/20 05:00 04/26/20 06:00 Labs: Abnormal Lab Results 04/26/20 04/26/20 04/25/20 06:00 05:00 04:50 WBC RBC 4.10 L Hgb 12.9 L Hct 38.5 L Neut % (Auto) 83.2 H Lymph % (Auto) 8.7 L Lymph # (Auto) 0.89 L Absolute Neutrophils 8.56 H Carbon Dioxide 19 L Anion Gap BUN 26 H Glucose Calcium C-React Prot High Sens 62.1 H Albumin Procalcitonin 04/25/20 04/25/20 04/24/20 04:49 04:49 04:34 WBC 12.7 H RBC 3.93 L Hgb 12.5 L Hct 36.5 L Neut % (Auto) 90.9 H Lymph % (Auto) 4.4 L Lymph # (Auto) 0.56 L Absolute Neutrophils 11.58 H Carbon Dioxide 18 L Anion Gap BUN 26 H Glucose 117 H Calcium 8.5 L C-React Prot High Sens 157.0 H Albumin 3.1 L Procalcitonin 04/24/20 04/24/20 04/23/20 04:34 04:34 09:45 WBC RBC 4.06 L Hgb 13.0 L Hct 38.3 L Neut % (Auto) 92.9 H Lymph % (Auto) 4.8 L Lymph # (Auto) 0.51 L Absolute Neutrophils 9.79 H Carbon Dioxide 18 L Anion Gap 17.0 H BUN 24 H Glucose 134 H Calcium C-React Prot High Sens Albumin 3.1 L Procalcitonin 5.88 H 04/23/20 09:45 WBC RBC Hgb Hct Neut % (Auto) Lymph % (Auto) Lymph # (Auto) Absolute Neutrophils Carbon Dioxide Anion Gap BUN Glucose Calcium C-React Prot High Sens 185.7 H Albumin Procalcitonin Meds: Medications Acetaminophen (Tylenol) 650 mg PO Q6HP PRN; Protocol PRN Reason: Per Pain Protocol/Fever > 101 Albuterol/Ipratropium (Duoneb) 3 ml NEB Q4HP PRN PRN Reason: Dyspnea Cetirizine HCl (Zyrtec) 10 mg PO DAILY [facility] Last Admin: 04/26/20 08:50 Dose: 10 mg Documented by: Dexamethasone (Decadron) 4 mg PO DAILY [facility] Last Admin: 04/26/20 08:49 Dose: 4 mg Documented by: Diltiazem HCl (Cardizem Sr) 120 mg PO BID [facility] Last Admin: 04/26/20 08:49 Dose: 120 mg Documented by: Docusate Sodium (Colace) 100 mg PO BID [facility] Last Admin: 04/26/20 08:49 Dose: 100 mg Documented by: Enoxaparin Sodium (Lovenox) 100 mg SQ BID [facility] Last Admin: 04/26/20 08:49 Dose: 100 mg Documented by: Hydroxyzine HCl (Atarax) 25 mg PO [facility] PRN PRN Reason: Insomnia Piperacillin Sod/Tazobactam (Sod 3.375 gm/ Dextrose) 50 mls @ 100 mls/hr IV Q6H [facility]; Protocol Last Infusion: 04/26/20 06:01 Dose: Infused Documented by: Lactulose (Cephulac) 10 gm PO DAILYP PRN PRN Reason: Constipation Levalbuterol HCl (Xopenex) 0.63 mg NEB Q4HP PRN PRN Reason: Dyspnea Melatonin (Melatonin 3mg Tablet) 6 mg PO HSP [facility] Metoprolol Tartrate (Lopressor) 12.5 mg PO BID [facility] Last Admin: 04/26/20 08:49 Dose: 12.5 mg Documented by: Oxycodone HCl (Roxicodone) 5 mg PO Q6HP PRN; Protocol PRN Reason: Pain Last Admin: 04/26/20 00:56 Dose: 5 mg Documented by: Pantoprazole Sodium (Protonix) 40 mg PO QAMAC [facility] Last Admin: 04/26/20 08:48 Dose: 40 mg Documented by: Pramipexole Dihydrochloride (Mirapex) 1.5 mg PO HS [facility] Last Admin: 04/25/20 21:31 Dose: 1.5 mg Documented by: Pravastatin Sodium (Pravachol) 20 mg PO DAILY [facility] Last Admin: 04/26/20 08:50 Dose: 20 mg Documented by: Promethazine HCl (Phenergan) 12.5 mg PO Q6HP PRN; Protocol PRN Reason: Nausea And Vomiting Sertraline HCl (Zoloft) 100 mg PO DAILY [facility] Last Admin: 04/26/20 08:50 Dose: 100 mg Documented by: Sodium Chloride (Saline Flush) 10 ml IV Q8 [facility] Last Admin: 04/26/20 05:32 Dose: 10 ml Documented by: Tamsulosin HCl (Flomax) 0.4 mg PO QHS [facility] Last Admin: 04/25/20 21:32 Dose: 0.4 mg Documented by: A/P Narrative A/P Narrative: * Septic shock 2nd to pneumonia-clinically resolved. Off vasopressors. Continue antibiotic coverage. * Acute hypoxic respiratory failure-secondary to pneumonia. Clinically improved now on room air * Right lower lobe pneumonia, CAP, COVID-19 negative. No evidence of aspiration per ST eval. On antibiotic coverage. * EVIE or EVIE on CKD-clinically improved. * Paroxysmal atrial fibrillation-Continue diltiazem 120 mg daily. Restart Eliquis * Hx of COPD-stable on bronchodilators/inhalers * History of DVT continue Eliquis * Hx of group home use of opiate analgesic-Continue home medication oxycodone * History of JOSIE-CPAP held in light of risk of aspiration * Insomnia continue melatonin/hydroxyzine * Severe deconditioning continue aggressive PT OT. Patient and family refusing SNF but agreeable to home health Plan * Continue antibiotic coverage * PT OT/nutrition support * Case management to coordinate home health services * Pre-existing medical condition management home meds Time Spent With Patient Time: Total time spent is greater then 65 minutes on extent discussion with patient and /care coordination QUALITY VTE Deep Vein Thrombosis/Pulmonary Embolism Present on Admission: No
[2020-04-26] MEDS: PRAMIPEXOLE 1 MG TABLET PO SCH (20:28)
[2020-04-26] MEDS: hydrOXYzine 25 MG TABLET PO PRN (20:29)
[2020-04-26] MEDS: TAMSULOSIN 0.4 MG CAPSULE PO SCH (20:31)
[2020-04-26] MEDS: MELATONIN 3 MG TABLET PO SCH (22:16)
[2020-04-27] MEDS: 0.9 % SODIUM CHLORIDE 10 ML SYRINGE IV SCH ×4 (00:07→23:47)
[2020-04-27] MEDS: PIPERACILLIN SODIUM/TAZOBACTAM 3.375 GM in DEXTROSE 5% IN WATER 50 ML IV SCH ×5 (00:07→23:46)
[2020-04-27] MEDS: oxyCODONE HCL 5 MG TABLET PO PRN ×2 (01:15→23:52)
[2020-04-27] MEDS: PANTOPRAZOLE 40 MG TABLET PO SCH (07:31)
[2020-04-27 08:35] LABS: ALT/SGPT 68 U/L (<40); AST/SGOT 56 U/L (<40); Albumin 3.2 gm/dL (3.2-5.2); Albumin/Globulin Ratio 1.1 (1.0-2.3); Alkaline Phosphatase 60 U/L (39-117); Bilirubin,Direct < 0.2 mg/dL (<0.3); Bilirubin,Total 0.4 mg/dL (0.1-1.0); Blood Urea Nitrogen 24 mg/dL (8-23); Calcium 8.6 mg/dL (8.6-10.4); Carbon Dioxide 22 mmol/L (22-30); Chloride 101 mmol/L (96-108); Globulin 2.8 gm/dL (2.2-3.7); Glomerular Filtration Rate 81; Glucose 87 mg/dL (70-105); Lactate Dehydrogenase 273 U/L (135-225); Phosphorous 3.2 mg/dL (2.5-4.5); Triglycerides 76 mg/dL (<150); Uric Acid 3.6 mg/dL (2.5-8.0)
[2020-04-27] MEDS: SERTRALINE 100 MG TABLET PO SCH (08:49)
[2020-04-27] MEDS: PRAVASTATIN 40 MG TABLET PO SCH (08:49)
[2020-04-27] MEDS: ENOXAPARIN 100 MG/ML SYRINGE SQ SCH (08:49)
[2020-04-27] MEDS: DOCUSATE SODIUM 100 MG CAPSULE PO SCH ×2 (08:50→20:29)
[2020-04-27] MEDS: DILTIAZEM 120 MG CAP.XL.24H PO SCH ×2 (08:50→20:27)
[2020-04-27] MEDS: DEXAMETHASONE 4 MG TABLET PO SCH (08:50)
[2020-04-27] MEDS: METOPROLOL TARTRATE 25 MG TABLET PO SCH ×2 (08:50→20:30)
[2020-04-27] MEDS: CETIRIZINE 10 MG TABLET PO SCH (08:50)
[2020-04-27 08:58] LABS: Basophils # (Auto) 0.02 K/mcL (0.00-0.20); Basophils % (Auto) 0.2 % (0.0-2.0); Eosinophils # (Auto) 0.01 K/mcL (0.00-0.70); Eosinophils % (Auto) 0.1 % (0.0-7.0); Hematocrit 39.6 % (41.0-55.0); Hemoglobin 13.1 g/dL (13.5-16.5); Lymphocytes # (Auto) 1.36 K/mcL (1.50-4.80); Lymphocytes % (Auto) 11.8 % (15.0-49.0); Mean Corpuscular HGB Conc 33.1 g/dL (31.0-36.0); Mean Platelet Volume 10.1 fL (7.4-10.4); Monocytes # (Auto) 1.11 K/mcL (0.10-0.90); Monocytes % (Auto) 9.6 % (1.0-12.0); Neutrophils % (Auto) 78.3 % (38.0-78.0); Platelet Count 290 K/mcL (140-440); RBC 4.17 M/mcL (4.50-5.90); Red Cell Distribution Width 13.8 % (11.5-14.5); WBC 11.5 K/mcL (4.5-11.0)
--- NOTE | 2020-04-27 11:08 | Internal Med Progress Note ---
SUBJECTIVE Subjective Patient information: Note initiated : 04/27/20 at 11:06 am Service Date, if different from initiated Date: [] Patient: Mil Fang a 79 y/o M admitted on 04/22/20 for weakness. Chief Complaint: [] Interval history: Mr. Fang is a 79 year old M with a past medical history of paroxysmal atrial fibrillation, COPD, pulmonary fibrosis, history of DVT, and history of long-term use of opiate who presented to the ER due to acute sh ortness of breath associated with a cough. At the per patient, he has been having acute shortness of breath associated with dry cough. He also feels tired. In the ER, rapid Covid test negative. X-ray showed moderate right mid and lower lung infiltrate. His D-dimer was elevated in the ER. But he is on Eliquis for atrial fibrillation. 04/23 Patient still complains of shortness of breath. Denies nausea, vomiting, or diarrhea. Blood pressure still soft 93/60, heart rate 90, He is on 3 to 4 L Creatinine 1.3 D-dimer 0.81, ferritin 225, CRP 186, procalcitonin 588, troponin less than 0.01 04/24 Patient feels fine and does not have any new complaints. Denies fever, chills, nausea, vomiting, or diarrhea He is on 3 L WBC 10.5, it was 19.7 yesterday Creatinine 1.0 Ferritin 225 CRP went down to 157 from 185 yesterday 04/25 Pt does not have medical complaints. No overnight event. Covid CPR test came back - negative. He is now on 0-1L. creatinine 0.9 CRP 62.1 from 157 Speech pathology saw pt - no dysphagia. 04/26-patient doing a lot better. White count down to 10,000. Interval improve ment on chest imaging right-sided infiltrate. Currently on room air. Case discussed with patient's Sol on phone. expressed concerns about profound weakness and inability to take care of self. Continuing physical therapies. Discussed option of SNF placement which was unwilling due to concerns of Covid. She however was agreeable to home health services. Patient was seen in room in good spirits. Feels a lot better. However continues to feel weak. Denies shortness of breath, chest pain, diarrhea. 04/27-patient clinically improving. Currently on room air. Tolerating diet. Tolerating therapy. Possible discharge in 24 hours with home health services. Case discussed with patient and . No overnight concerns including fever chills. Constitutional Vitals: vital Signs Temp Pulse Resp BP Pulse Ox 97.4 F 92 H 20 132/83 94 04/27/20 08:00 04/27/20 08:00 04/27/20 08:00 04/27/20 08:00 04/27/20 08:00 Period Temp Pulse Resp BP Sys/Armando Pulse Ox Last 24 Hr 97.4 F-97.9 F 84-100 20-28 130-150/68-92 94-97 Intake and Output 04/26/20 04/27/20 04/27/20 21:59 05:59 13:59 Intake Total 1410 300 670 Output Total 1320 1200 100 Balance 90 -900 570 Weight 100.698 kg Alert oriented Nonlabored breathing No anxiety Nondistended abdomen Intake & Output: Intake & Output 04/26/20 04/27/20 04/27/20 21:59 05:59 13:59 Intake Total 1410 300 670 Output Total 1320 1200 100 Balance 90 -900 570 Weight 100.698 kg Intake: IV 50 50 50 Zosyn 3.375 gm In Dextrose 5% 50 50 50 in Water 50 ml @ 100 mls/hr IV Q6H [facility] Rx#:[id number] Oral 1360 250 620 Output: Void Amount 1320 1200 100 Other: Meal Lunch Breakfast Percent of Meal Consumed 100% 100% Feeding Ability Independent Urine Appearance Clear Clear Urine Color Pale Pale Urine Odor Normal OBJ DATA Labs CBC & Chem 7: 04/27/20 05:44 04/27/20 05:44 Labs: Abnormal Lab Results 04/27/20 04/27/20 04/26/20 05:44 05:44 06:00 WBC 11.5 H RBC 4.17 L Hgb 13.1 L Hct 39.6 L Neut % (Auto) 78.3 H Lymph % (Auto) 11.8 L Lymph # (Auto) 1.36 L Coffee # (Auto) 1.11 H Absolute Neutrophils 9.02 H Carbon Dioxide 19 L BUN 24 H 26 H Glucose Calcium AST 56 H ALT 68 H Lactate Dehydrogenase 273 H C-React Prot High Sens Albumin 04/26/20 04/25/20 04/25/20 05:00 04:50 04:49 WBC RBC 4.10 L Hgb 12.9 L Hct 38.5 L Neut % (Auto) 83.2 H Lymph % (Auto) 8.7 L Lymph # (Auto) 0.89 L Coffee # (Auto) Absolute Neutrophils 8.56 H Carbon Dioxide 18 L BUN 26 H Glucose 117 H Calcium 8.5 L AST ALT Lactate Dehydrogenase C-React Prot High Sens 62.1 H Albumin 3.1 L 04/25/20 04/24/20 04:49 04:34 WBC 12.7 H RBC 3.93 L Hgb 12.5 L Hct 36.5 L Neut % (Auto) 90.9 H Lymph % (Auto) 4.4 L Lymph # (Auto) 0.56 L Coffee # (Auto) Absolute Neutrophils 11.58 H Carbon Dioxide BUN Glucose Calcium AST ALT Lactate Dehydrogenase C-React Prot High Sens 157.0 H Albumin Meds: Medications Acetaminophen (Tylenol) 650 mg PO Q6HP PRN; Protocol PRN Reason: Per Pain Protocol/Fever > 101 Albuterol/Ipratropium (Duoneb) 3 ml NEB Q4HP PRN PRN Reason: Dyspnea Last Admin: 04/26/20 16:30 Dose: 3 ml Documented by: Apixaban (Eliquis) 5 mg PO BID [facility] Cetirizine HCl (Zyrtec) 10 mg PO DAILY [facility] Last Admin: 04/27/20 08:50 Dose: 10 mg Documented by: Dexamethasone (Decadron) 4 mg PO DAILY [facility] Last Admin: 04/27/20 08:50 Dose: 4 mg Documented by: Diltiazem HCl (Cardizem Sr) 120 mg PO BID [facility] Last Admin: 04/27/20 08:50 Dose: 120 mg Documented by: Docusate Sodium (Colace) 100 mg PO BID [facility] Last Admin: 04/27/20 08:50 Dose: 100 mg Documented by: Hydroxyzine HCl (Atarax) 25 mg PO [facility] PRN PRN Reason: Insomnia Last Admin: 04/26/20 20:29 Dose: 25 mg Documented by: Piperacillin Sod/Tazobactam (Sod 3.375 gm/ Dextrose) 50 mls @ 100 mls/hr IV Q6H [facility]; Protocol Last Infusion: 04/27/20 06:45 Dose: Infused Documented by: Lactulose (Cephulac) 10 gm PO DAILYP PRN PRN Reason: Constipation Levalbuterol HCl (Xopenex) 0.63 mg NEB Q4HP PRN PRN Reason: Dyspnea Melatonin (Melatonin 3mg Tablet) 6 mg PO HSP [facility] Last Admin: 04/26/20 22:16 Dose: 6 mg Documented by: Metoprolol Tartrate (Lopressor) 12.5 mg PO BID [facility] Last Admin: 04/27/20 08:50 Dose: 12.5 mg Documented by: Oxycodone HCl (Roxicodone) 5 mg PO Q6HP PRN; Protocol PRN Reason: Pain Last Admin: 04/27/20 01:15 Dose: 5 mg Documented by: Pantoprazole Sodium (Protonix) 40 mg PO QAMAC [facility] Last Admin: 04/27/20 07:31 Dose: 40 mg Documented by: Pramipexole Dihydrochloride (Mirapex) 1.5 mg PO HS [facility] Last Admin: 04/26/20 20:28 Dose: 1.5 mg Documented by: Pravastatin Sodium (Pravachol) 20 mg PO DAILY [facility] Last Admin: 04/27/20 08:49 Dose: 20 mg Documented by: Promethazine HCl (Phenergan) 12.5 mg PO Q6HP PRN; Protocol PRN Reason: Nausea And Vomiting Sertraline HCl (Zoloft) 100 mg PO DAILY [facility] Last Admin: 04/27/20 08:49 Dose: 100 mg Documented by: Sodium Chloride (Saline Flush) 10 ml IV Q8 [facility] Last Admin: 04/27/20 06:12 Dose: 10 ml Documented by: Tamsulosin HCl (Flomax) 0.4 mg PO QHS [facility] Last Admin: 04/26/20 20:31 Dose: 0.4 mg Documented by: A/P Narrative A/P Narrative: * Right lower lobe pneumonia clinically improving on antibiotic coverage curre ntly off oxygen. COVID-19 negative * Septic shock 2nd to pneumonia-clinically resolved. Off vasopressors. Improved endorgan dysfunction. On antibiotic coverage * Acute hypoxic respiratory failure-secondary to pneumonia. Fully resolved now on room air * EVIE or EVIE on CKD-clinically resolved * Paroxysmal atrial fibrillation-rate controlled on diltiazem 120 mg daily. On Eliquis for CVA prophylaxis * Hx of COPD-stable on bronchodilators/inhalers * History of DVT continue Eliquis * Hx of long-term use of opiate analgesic-Continue home medication oxycodone * History of JOSIE-CPAP held in light of risk of aspiration * Insomnia continue melatonin/hydroxyzine * Severe deconditioning continue aggressive PT OT. Patient and family refusing SNF but agreeable to home health Plan * Continue antibiotic coverage for additional 48 hours * PT OT/nutrition support * Case management to coordinate home health services, likely discharge in 24 hours * Pre-existing medical condition management home meds Time Spent With Patient Time: Total time spent is greater than 50% in coordination of care (as documented) at patient's floor/unit and/or counseling patient: QUALITY VTE Deep Vein Thrombosis/Pulmonary Embolism Present on Admission: No
[2020-04-27] MEDS: FUROSEMIDE 20 MG/2 ML VIAL IV SCH ×2 (14:41→16:06)
[2020-04-27] MEDS: APIXABAN 5 MG TABLET PO SCH (20:27)
[2020-04-27] MEDS: PRAMIPEXOLE 1 MG TABLET PO SCH (20:27)
[2020-04-27] MEDS: hydrOXYzine 25 MG TABLET PO PRN (20:28)
[2020-04-27] MEDS: TAMSULOSIN 0.4 MG CAPSULE PO SCH (20:28)
[2020-04-27] MEDS: MELATONIN 3 MG TABLET PO SCH (20:28)
[2020-04-28] MEDS: PIPERACILLIN SODIUM/TAZOBACTAM 3.375 GM in DEXTROSE 5% IN WATER 50 ML IV SCH ×2 (05:57→12:33)
[2020-04-28] MEDS: 0.9 % SODIUM CHLORIDE 10 ML SYRINGE IV SCH (05:58)
[2020-04-28] MEDS: PANTOPRAZOLE 40 MG TABLET PO SCH (06:58)
[2020-04-28] MEDS: FUROSEMIDE 20 MG/2 ML VIAL IV SCH (06:58)
[2020-04-28 07:04] LABS: Basophils # (Auto) 0.07 K/mcL (0.00-0.20); Basophils % (Auto) 0.5 % (0.0-2.0); Eosinophils # (Auto) 0.01 K/mcL (0.00-0.70); Eosinophils % (Auto) 0.1 % (0.0-7.0); Hematocrit 40.4 % (41.0-55.0); Hemoglobin 13.7 g/dL (13.5-16.5); Lymphocytes # (Auto) 1.28 K/mcL (1.50-4.80); Lymphocytes % (Auto) 9.3 % (15.0-49.0); Mean Cell Volume 93.7 fL (80.0-100.0); Mean Corpuscular HGB Conc 33.9 g/dL (31.0-36.0); Monocytes # (Auto) 1.22 K/mcL (0.10-0.90); Monocytes % (Auto) 8.9 % (1.0-12.0); Neutrophils % (Auto) 81.2 % (38.0-78.0); Platelet Count 309 K/mcL (140-440); RBC 4.31 M/mcL (4.50-5.90); Red Cell Distribution Width 13.5 % (11.5-14.5); WBC 13.8 K/mcL (4.5-11.0)
[2020-04-28 07:45] LABS: ALT/SGPT 73 U/L (<40); AST/SGOT 43 U/L (<40); Albumin 3.3 gm/dL (3.2-5.2); Albumin/Globulin Ratio 1.2 (1.0-2.3); Alkaline Phosphatase 59 U/L (39-117); Bilirubin,Direct < 0.2 mg/dL (<0.3); Bilirubin,Total 0.3 mg/dL (0.1-1.0); Blood Urea Nitrogen 28 mg/dL (8-23); Calcium 8.8 mg/dL (8.6-10.4); Carbon Dioxide 24 mmol/L (22-30); Chloride 99 mmol/L (96-108); Globulin 2.8 gm/dL (2.2-3.7); Glomerular Filtration Rate 71; Glucose 102 mg/dL (70-105); Lactate Dehydrogenase 243 U/L (135-225); Triglycerides 83 mg/dL (<150); Uric Acid 3.7 mg/dL (2.5-8.0)
[2020-04-28 07:47] LABS: ALT/SGPT 73 U/L (<40); AST/SGOT 44 U/L (<40); Albumin 3.3 gm/dL (3.2-5.2); Albumin/Globulin Ratio 1.1 (1.0-2.3); Alkaline Phosphatase 60 U/L (39-117); Bilirubin,Total 0.4 mg/dL (0.1-1.0); Blood Urea Nitrogen 29 mg/dL (8-23); Calcium 8.9 mg/dL (8.6-10.4); Carbon Dioxide 25 mmol/L (22-30); Chloride 99 mmol/L (96-108); Globulin 2.9 gm/dL (2.2-3.7); Glomerular Filtration Rate 81; Glucose 105 mg/dL (70-105)
[2020-04-28] MEDS: METOPROLOL TARTRATE 25 MG TABLET PO SCH (08:15)
[2020-04-28] MEDS: DILTIAZEM 120 MG CAP.XL.24H PO SCH (08:15)
[2020-04-28] MEDS: APIXABAN 5 MG TABLET PO SCH (08:25)
[2020-04-28] MEDS: CETIRIZINE 10 MG TABLET PO SCH (08:25)
[2020-04-28] MEDS: DOCUSATE SODIUM 100 MG CAPSULE PO SCH (08:26)
[2020-04-28] MEDS: DEXAMETHASONE 4 MG TABLET PO SCH (08:26)
[2020-04-28] MEDS: SERTRALINE 100 MG TABLET PO SCH (08:26)
[2020-04-28] MEDS: PRAVASTATIN 40 MG TABLET PO SCH (08:30)
[2020-04-28] MEDS ORDERED: METOPROLOL TARTRATE 5 MG/5 ML VIAL IV SCH (08:45)
[2020-04-28] MEDS ORDERED: DILTIAZEM 25 MG/5 ML VIAL IV ONE (08:47)
[2020-04-28] MEDS ORDERED: LOSARTAN 25 MG TABLET PO SCH ×2 (09:00→21:00)
[2020-04-28] MEDS ORDERED: MAGNESIUM OXIDE 400 MG TABLET PO SCH (09:00)
[2020-04-28] MEDS ORDERED: TIOTROPIUM OLODATEROL INHALATION SCH (09:00)
[2020-04-28] MEDS ORDERED: MULTIVIT,THER IRON,CA,FA & MIN 1 TABLET PO SCH (09:00)
[2020-04-28] MEDS ORDERED: CETIRIZINE 10 MG TABLET PO SCH (09:00)
[2020-04-28] MEDS ORDERED: Tiotropium-Olodaterol [Stiolto Respimat] Inhaler INH SCH (09:00)
--- NOTE | 2020-04-28 09:07 | XRay Report ---
HISTORY: Weakness, follow-up infiltrate in the right lung FINDINGS: There is a residual streaky infiltrate in the right lung involving both upper and lower lobes. This continues to gradually improve compared with the prior exams on 04/22 and 04/25/2020. No pleural effusion is present. There is no apparent underlying mass. The left lung is clear. The heart remains borderline enlarged. There is no congestive heart failure. The aorta is tortuous. IMPRESSION: Persistent gradual improvement of the pneumonia in the right lung Interpreted and Authenticated by: George Stafford 04/28/20
--- NOTE | 2020-04-28 11:43 | Discharge Summary ---
Discharge Provider Provider Patient information: Note initiated : 04/28/20 at 11:40 am Service Date, if different from initiated Date: [] Patient: Mil Fang a 79 y/o M admitted on 04/22/20 for weakness. Discharge diagnosis * Right lower lobe pneumonia clinically improving on antibiotic coverage currently off oxygen. COVID-19 negative * Septic shock 2nd to pneumonia-clinically resolved. Off vasopressors. Improved endorgan dysfunction. Continue antibiotic for additional 48 hours * Acute hypoxic respiratory failure-secondary to pneumonia. Fully resolved now on room air * EVIE or EVIE on CKD-clinically resolved * Paroxysmal atrial fibrillation-rate controlled on diltiazem 120 mg twice daily. On Eliquis for CVA prophylaxis * Hx of COPD-stable on bronchodilators/inhalers * History of DVT continue Eliquis * Hx of usp use of opiate analgesic-Continue home medication oxycodone * History of JOSIE-CPAP held in light of risk of aspiration * Insomnia continue melatonin/hydroxyzine * Severe deconditioning continue aggressive PT OT. Clinically improved with aggressive physical therapy. Discharging with home health services. Brief hospital course Mr. Fang is a 79 year old M with a past medical history of paroxysmal atrial fibrillation, COPD, pulmonary fibrosis, history of DVT, and history of long-term use of opiate who presented to the ER due to acute shortness of breath associated with a cough. At the per patient, he has been having acute shortness of breath associated with dry cough. He also feels tired. In the ER, rapid Covid test negative. X-ray showed moderate right mid and lower lung infiltrate. His D-dimer was elevated in the ER. But he is on Eliquis for atrial fibrillation. 04/23 Patient still complains of shortness of breath. Denies nausea, vomiting, or diarrhea. Blood pressure still soft 93/60, heart rate 90, He is on 3 to 4 L Creatinine 1.3 D-dimer 0.81, ferritin 225, CRP 186, procalcitonin 588, troponin less than 0.01 04/24 Patient feels fine and does not have any new complaints. Denies fever, chills, nausea, vomiting, or diarrhea He is on 3 L WBC 10.5, it was 19.7 yesterday Creatinine 1.0 Ferritin 225 CRP went down to 157 from 185 yesterday 04/25 Pt does not have medical complaints. No overnight event. Covid CPR test came back - negative. He is now on 0-1L. creatinine 0.9 CRP 62.1 from 157 Speech pathology saw pt - no dysphagia. 04/26-patient doing a lot better. White count down to 10,000. Interval improvement on chest imaging right-sided infiltrate. Currently on room air. Case discussed with patient's Sol on phone. expressed concerns about profound weakness and inability to take care of self. Continuing physical therapies. Discussed option of SNF placement which was unwilling due to concerns of Covid. She however was agreeable to home health services. Patient was seen in room in good spirits. Feels a lot better. However continues to feel weak. Denies shortness of breath, chest pain, diarrhea. 04/27-patient clinically improving. Currently on room air. Tolerating diet. Tolerating therapy. Possible discharge in 24 hours with home health services. Case discussed with patient and . No overnight concerns including fever chills. 04/28-patient doing remarkably better. Brief episode of RVR however rate controlled on diltiazem at home dose. Recommend follow-up with cardiology as outpatient on discharge. Continue antibiotic for additional doses. On room air ambulating and tolerating diet. Feels ready for discharge Date of admission: 04/22/20 13:26 Discharge date: 04/28/20 Primary care physician: Leonie Sommer Consults: 04/22/20 Consult to Physician [CONS] Stat Comment: Consulting Provider: Cristy Stovall Reason For Exam: Physician to Consult Discharge Meds Discharge Medications Home Medications losartan 50 mg PO HS 09/24/16 [History Confirmed 04/27/20 Last Taken 11/10/18] sertraline 100 mg PO DAILY 09/24/16 [History Confirmed 04/22/20 Last Taken Unknown] cetirizine 10 mg PO DAILY 11/10/18 [History Confirmed 04/22/20 Last Taken 11/09/18] oxycodone 5 mg PO PRN PRN 11/10/18 [History Confirmed 04/22/20 Last Taken 10/28/18] pramipexole 1.5 mg PO HS 11/10/18 [History Confirmed 04/22/20 Last Taken 11/10/18] pravastatin 40 mg PO DAILY 11/10/18 [History Confirmed 04/22/20 Last Taken 11/09/18] albuterol sulfate 90 mcg/actuation breath activated powder inhaler 2 inh INHALATION QID PRN 04/09/19 [History Confirmed 04/22/20 Last Taken Unknown] diltiazem HCl 120 mg capsule,24 hr,extended release 120 mg PO BID cap 04/09/19 [History Confirmed 04/22/20 Last Taken Unknown] tamsulosin 0.4 mg capsule 0.4 mg PO QHS cap 04/09/19 [History Confirmed 04/22/20 Last Taken Unknown] tiotropium 2.5 mcg-olodaterol 2.5 mcg/actuation mist for inhalation 2 puff INHALATION QDAY 04/09/19 [History Confirmed 04/22/20 Last Taken Unknown] Calcium 600mg/Vitamin D 600 mg PO QDAY 04/10/19 [History Confirmed 04/24/20 Last Taken Unknown] magnesium oxide 420 mg tablet 420 mg PO QDAY 04/10/19 [History Confirmed 04/22/20 Last Taken Unknown] apixaban 5 mg tablet 5 mg PO BID tab 04/15/19 [History Confirmed 04/27/20 Last Taken Unknown] cholecalciferol (vitamin D3) 25 mcg (1,000 unit) capsule 5,000 unit PO QDAY cap 04/15/19 [History Confirmed 04/22/20 Last Taken Unknown] multivitamin 1 tab PO QDAY 04/15/19 [History Confirmed 04/22/20 Last Taken Unknown] tiotropium 2.5 mcg-olodaterol 2.5 mcg/actuation mist for inhalation 2 puff INHALATION QDAY #12 g 04/15/19 [Rx Confirmed 04/22/20 Last Taken Unknown] hydrochlorothiazide 12.5 mg PO QDAY 04/22/20 [History Confirmed 04/22/20 Last Taken Unknown] losartan 25 mg PO QDAY 04/27/20 [History Confirmed 04/27/20 Last Taken Unknown] amoxicillin-pot clavulanate 1 tab PO BID #4 tab 04/28/20 [Rx Last Taken Unknown] COURSE Hospital Course Hospital course: . Discharge diagnosis: . Time Spent with Patient Time attestation: Total time spent providing and/or coordinating discharge services: EXAM Constitutional Vitals: Temp Pulse Resp BP Pulse Ox 96.6 F L 111 H 22 138/93 94 04/28/20 08:00 04/28/20 08:00 04/28/20 04:00 04/28/20 08:00 04/28/20 08:00 Discharge Data Data Completed and Pending Labs on day of discharge: Labs from last 24 hours 04/28/20 04/28/20 04/28/20 06:04 06:04 06:04 WBC 13.8 H RBC 4.31 L Hgb 13.7 Hct 40.4 L MCV 93.7 MCH 31.8 MCHC 33.9 RDW 13.5 Plt Count 309 MPV 10.0 Neut % (Auto) 81.2 H Lymph % (Auto) 9.3 L [place] % (Auto) 8.9 Eos % (Auto) 0.1 Baso % (Auto) 0.5 Lymph # (Auto) 1.28 L [place] # (Auto) 1.22 H Eos # (Auto) 0.01 Baso # (Auto) 0.07 Absolute Neutrophils 11.17 H Sodium 136 136 Potassium 4.5 4.5 Chloride 99 99 Carbon Dioxide 24 25 Anion Gap 13.0 12.0 BUN 28 H 29 H Creatinine 1.0 0.9 GFR Calculation 71 81 Glucose 102 105 Uric Acid 3.7 Calcium 8.8 8.9 Phosphorus 4.0 Magnesium 2.1 Total Bilirubin 0.3 0.4 Direct Bilirubin < 0.2 GGT 38 AST 43 H 44 H ALT 73 H 73 H Alkaline Phosphatase 59 60 Lactate Dehydrogenase 243 H Total Protein 6.1 6.2 Albumin 3.3 3.3 Globulin 2.8 2.9 Albumin/Globulin Ratio 1.2 1.1 Triglycerides 83 Discharge Plan Patient/Caregiver Discharge Instructions Activity: increase activity as tolerated Diet: Regular Diet Activity Restrictions/Additional Instructions: Follow-up PCP in 5 to 7 days Follow-up cardiology for management of A. fib. Continue medication advised. Continue antibiotic additional 48 hours. Return to ER if worsening lightheadedness fever chills cough noted. Home health therapies Prescriptions: New amoxicillin-pot clavulanate 875-125 mg Tablet 1 tab PO BID Qty: 4 RF: 0 Continued albuterol sulfate 90 mcg/actuation aerosol powdr breath activated 2 inh INHALATION QID PRN (Reason: Dyspnea) RF: 0 diltiazem HCl 120 mg capsule,extended release 24 hr 120 mg PO BID RF: 0 tamsulosin 0.4 mg capsule 0.4 mg PO QHS RF: 0 tiotropium-olodaterol 2.5-2.5 mcg/actuation mist 2 puff INHALATION QDAY RF: 0 Calcium 600mg/Vitamin D capsule 600 mg PO QDAY RF: 0 magnesium oxide 420 mg tablet 420 mg PO QDAY RF: 0 apixaban 5 mg tablet 5 mg PO BID RF: 0 cholecalciferol (vitamin D3) 25 mcg (1,000 unit) capsule 5,000 unit PO QDAY RF: 0 multivitamin [Multiple Vitamins] Tablet 1 tab PO QDAY RF: 0 Stiolto Respimat 2.5-2.5 mcg/actuation mist 2 puff INHALATION QDAY Qty: 12 RF: 3 sertraline 100 MG tablet 100 mg PO DAILY RF: 0 losartan 25 MG tablet 50 mg PO HS RF: 0 pramipexole 1 MG tablet 1.5 mg PO HS RF: 0 cetirizine 10 MG tablet 10 mg PO DAILY RF: 0 pravastatin 40 MG tablet 40 mg PO DAILY RF: 0 oxycodone 5 MG tablet 5 mg PO PRN PRN (Reason: Pain) RF: 0 hydrochlorothiazide 12.5 mg Capsule 12.5 mg PO QDAY RF: 0 losartan 25 mg Tablet 25 mg PO QDAY RF: 0 Follow Up Plan Follow up with: Leonie Sommer ARNP [Primary Care Provider] - Patient Disposition: Home Health Service Prognosis: Critical Rehab Potential: Fair I certify that the patient requires SNF services: No Overall status at discharge: patient is progressing back to baseline Discharge Orders: Discharge Order (Routine); Ordered 04/28/20 Ordered By: Adair MEDRANO VTE Deep Vein Thrombosis/Pulmonary Embolism Present on Admission: No
[2020-04-28] MEDS ORDERED: FUROSEMIDE 20 MG TABLET PO ONE (14:25)
== END 2020-04-28 14:45 | disposition home health service (06) | DRG 872 ==
LOC: ED 09:12 → ICU 13:26 → MEDSUR 13:26 → ICU 13:27 → MEDSUR 04-25 14:45
PROVIDERS: ADMIT Internal Medicine; ATTEND Internal Medicine

== ENCOUNTER 2024-03-28 05:02 | Inpatient (IN) ==
[2024-03-28] MEDS ORDERED: IOPAMIDOL 100 ML BOTTLE IV ONE (05:03)
[2024-03-28] MEDS: methylPREDNISolone SOD SUCC 125 MG/2 ML VIAL IM ONE (06:26)
[2024-03-28] MEDS: methylPREDNISolone SOD SUCC 125 MG/2 ML VIAL IV ONE (06:26)
[2024-03-28] MEDS: IPRATROPIUM/ALBUTEROL 3 ML AMPUL.NEB NEB ONE (06:39)
[2024-03-28 06:47] LABS: Basophils # (Auto) 0.01 K/mcL (0.00-0.30); Basophils % (Auto) 0.1 % (0.0-2.0); Eosinophils # (Auto) 0 K/mcL (0.00-0.70); Eosinophils % (Auto) 0 % (0.0-7.0); Hematocrit 45.8 % (40.1-51.0); Hemoglobin 15.3 g/dL (13.7-17.5); Lymphocytes # (Auto) 0.69 K/mcL (1.50-4.80); Lymphocytes % (Auto) 8.4 % (15.5-49.0); Mean Cell Volume 95.6 fL (80.0-100.0); Mean Corpuscular HGB Conc 33.4 g/dL (31.0-36.0); Mean Platelet Volume 10.4 fL (8.8-12.5); Monocytes # (Auto) 0.73 K/mcL (0.10-0.90); Monocytes % (Auto) 8.9 % (1.0-12.0); Neutrophils % (Auto) 81.1 % (38.0-78.0); Platelet Count 188 K/mcL (140-440); RBC 4.79 M/mcL (4.63-6.08); Red Cell Distribution Width 13.5 % (11.5-14.5); WBC 8.2 K/mcL (4.5-11.0)
[2024-03-28 07:02] LABS: C-Reactive Protein 5.22 mg/dL (0.03-0.80)
[2024-03-28 07:05] LABS: Appearance,Urine Clear (Clear); Bilirubin,Urine Negative (Negative); Color,Urine Yellow; Glucose,Urine (UA) Negative (Negative); Ketones,Urine Negative (Negative); Leukocyte Esterase,Urine Negative /uL (Negative); Nitrate,Urine Negative (Negative); Protein,Urine Negative (Negative); Urine Blood Negative ery/mcL (Negative); Urine RBC 0 /hpf (0-3); Urine Squamous Epithelial Cell 0 /hpf (0-4); Urine WBC 0 /hpf (0-4); Urobilinogen,Urine Normal
[2024-03-28 07:10] LABS: ALT/SGPT 34 U/L (<40); AST/SGOT 33 U/L (<40); Albumin 3.7 gm/dL (3.2-5.2); Albumin/Globulin Ratio 1.2 (1.0-2.3); Alkaline Phosphatase 89 U/L (39-117); Bilirubin,Total 0.5 mg/dL (0.1-1.0); Blood Urea Nitrogen 24 mg/dL (8-23); Calcium 9.1 mg/dL (8.6-10.4); Carbon Dioxide 18 mmol/L (22-30); Chloride 101 mmol/L (96-108); Globulin 3.1 gm/dL (2.2-3.7); Glomerular Filtration Rate 70; Glucose 95 mg/dL (70-105); Potassium 3.9 mmol/L (3.3-5.1); Sodium 135 mmol/L (133-145)
[2024-03-28] MEDS: DILTIAZEM 120 MG CAP.XL.24H PO ONE (07:51)
[2024-03-28] MEDS: TAMSULOSIN 0.4 MG CAPSULE PO ONE (07:51)
[2024-03-28] MEDS: ATENOLOL 25 MG TABLET PO ONE ×2 (07:51→08:04)
[2024-03-28] MEDS: APIXABAN 5 MG TABLET PO ONE (07:51)
[2024-03-28] MEDS: FUROSEMIDE 20 MG/2 ML VIAL IV ONE (09:03)
[2024-03-28] MEDS: AZITHROMYCIN 250 MG TABLET PO ONE (09:03)
[2024-03-28] MEDS: cefTRIAXone 2 GM in DEXTROSE 5% IN WATER 50 ML IV ONE (09:06)
[2024-03-28] MEDS: KETOROLAC 30 MG/ML VIAL IV ONE (09:15)
[2024-03-28] MEDS ORDERED: oxyCODONE/APAP 5/325MG TABLET PO PRN (10:01)
[2024-03-28] MEDS ORDERED: ALBUTEROL SULFATE 60 PUFF INHALER INH PRN (10:09)
[2024-03-28] MEDS ORDERED: ACETAMINOPHEN 325 MG TABLET PO PRN (11:48)
[2024-03-28] MEDS ORDERED: ONDANSETRON 4 MG/2 ML VIAL IV PRN (11:48)
[2024-03-28] MEDS: IPRATROPIUM/ALBUTEROL 3 ML AMPUL.NEB NEB SCH (13:06)
[2024-03-28] MEDS: POTASSIUM CHLORIDE 20 MEQ PACKET PO SCH (13:09)
[2024-03-28] MEDS: Mirabegron 50 mg tablet extended release 24 hr PO SCH (13:10)
[2024-03-28] MEDS: VITAMIN D3 125 MCG TABLET PO SCH (13:10)
[2024-03-28] MEDS: DEXAMETHASONE 4 MG TABLET PO SCH (14:01)
[2024-03-28] MEDS: REMDESIVIR 200 MG in 0.9 % SODIUM CHLORIDE 250 ML IV SCH (14:31)
[2024-03-28] MEDS: 0.9 % SODIUM CHLORIDE 10 ML SYRINGE IV SCH (14:31)
[2024-03-28] MEDS: FUROSEMIDE 20 MG/2 ML VIAL IV SCH (16:13)
[2024-03-28] MEDS ORDERED: [UNRECOGNIZED DRUG - OTHER] AD SCH (21:00)
[2024-03-28] MEDS: PRAMIPEXOLE 1 MG TABLET PO SCH (21:42)
[2024-03-28] MEDS: OMEPRAZOLE 20 MG CAPSULE PO ONE ×2 (21:42→21:47)
[2024-03-28] MEDS: ATENOLOL 25 MG TABLET PO SCH (21:44)
[2024-03-28] MEDS: APIXABAN 5 MG TABLET PO SCH (21:44)
[2024-03-28] MEDS: TAMSULOSIN 0.4 MG CAPSULE PO SCH (21:44)
[2024-03-28] MEDS: DOCUSATE SODIUM 100 MG CAPSULE PO SCH (21:45)
[2024-03-28] MEDS: SENNOSIDES 1 TABLET PO SCH (21:46)
[2024-03-29 05:55] LABS: Basophils # (Auto) 0.01 K/mcL (0.00-0.30); Basophils % (Auto) 0.1 % (0.0-2.0); Eosinophils # (Auto) 0 K/mcL (0.00-0.70); Eosinophils % (Auto) 0 % (0.0-7.0); Hematocrit 42.7 % (40.1-51.0); Hemoglobin 14.5 g/dL (13.7-17.5); Lymphocytes # (Auto) 0.39 K/mcL (1.50-4.80); Lymphocytes % (Auto) 5.2 % (15.5-49.0); Mean Cell Volume 94.1 fL (80.0-100.0); Mean Platelet Volume 10.1 fL (8.8-12.5); Monocytes # (Auto) 0.57 K/mcL (0.10-0.90); Monocytes % (Auto) 7.5 % (1.0-12.0); Platelet Count 185 K/mcL (140-440); RBC 4.54 M/mcL (4.63-6.08); Red Cell Distribution Width 13.2 % (11.5-14.5); WBC 7.6 K/mcL (4.5-11.0)
[2024-03-29 06:27] LABS: ALT/SGPT 26 U/L (<40); AST/SGOT 25 U/L (<40); Albumin 3.4 gm/dL (3.2-5.2); Albumin/Globulin Ratio 1.3 (1.0-2.3); Alkaline Phosphatase 81 U/L (39-117); Bilirubin,Total 0.3 mg/dL (0.1-1.0); Blood Urea Nitrogen 37 mg/dL (8-23); Calcium 8.5 mg/dL (8.6-10.4); Carbon Dioxide 21 mmol/L (22-30); Chloride 101 mmol/L (96-108); Globulin 2.6 gm/dL (2.2-3.7); Glomerular Filtration Rate 70; Glucose 128 mg/dL (70-105); Potassium 4.1 mmol/L (3.3-5.1); Sodium 133 mmol/L (133-145)
[2024-03-29] MEDS ORDERED: OMEPRAZOLE 20 MG CAPSULE PO SCH (07:30)
[2024-03-29] MEDS ORDERED: predniSONE 20 MG TABLET PO SCH (08:00)
[2024-03-29] MEDS: MULTIVIT,THER IRON,CA,FA & MIN 1 TABLET PO SCH (09:35)
[2024-03-29] MEDS: FINASTERIDE 5 MG TABLET PO SCH (09:35)
[2024-03-29] MEDS: ATORVASTATIN 40 MG TABLET PO SCH (09:36)
[2024-03-29] MEDS: LISINOPRIL 5 MG TABLET PO SCH (09:36)
[2024-03-29] MEDS: DEXAMETHASONE 4 MG TABLET PO SCH (09:36)
[2024-03-29] MEDS: SERTRALINE 100 MG TABLET PO SCH (09:36)
[2024-03-29] MEDS: MAGNESIUM OXIDE 400 MG TABLET PO SCH (09:36)
[2024-03-29] MEDS: CETIRIZINE 10 MG TABLET PO SCH (09:36)
[2024-03-29] MEDS: AZITHROMYCIN 500 MG in 0.9 % SODIUM CHLORIDE 250 ML IV SCH (09:45)
[2024-03-29] MEDS: DILTIAZEM 120 MG CAP.XL.24H PO SCH ×2 (10:10→10:28)
[2024-03-29] MEDS: Tiotropium-Olodaterol [Stiolto Respimat] 2.5-2.5 INH SCH (10:29)
[2024-03-29] MEDS: MOMETASONE INH SCH (10:29)
[2024-03-29] MEDS: REMDESIVIR 100 MG in 0.9 % SODIUM CHLORIDE 250 ML IV SCH (11:03)
[2024-03-29] MEDS: cefTRIAXone 1 GM VIAL IV SCH (11:03)
[2024-03-29] MEDS: traZODone HCL 50 MG TABLET PO PRN (23:14)
[2024-03-30] MEDS: guaiFENesin/DEXTROMETHORPHAN 5ML UD CUP PO PRN (02:58)
[2024-03-30 06:03] LABS: Basophils # (Auto) 0 K/mcL (0.00-0.30); Basophils % (Auto) 0 % (0.0-2.0); Eosinophils # (Auto) 0 K/mcL (0.00-0.70); Eosinophils % (Auto) 0 % (0.0-7.0); Hematocrit 44.9 % (40.1-51.0); Lymphocytes # (Auto) 0.47 K/mcL (1.50-4.80); Lymphocytes % (Auto) 4.3 % (15.5-49.0); Mean Cell Volume 94.9 fL (80.0-100.0); Mean Corpuscular HGB Conc 33.4 g/dL (31.0-36.0); Mean Platelet Volume 9.9 fL (8.8-12.5); Monocytes # (Auto) 0.67 K/mcL (0.10-0.90); Monocytes % (Auto) 6.1 % (1.0-12.0); Neutrophils % (Auto) 88.4 % (38.0-78.0); Platelet Count 217 K/mcL (140-440); RBC 4.73 M/mcL (4.63-6.08); Red Cell Distribution Width 13.5 % (11.5-14.5); WBC 10.9 K/mcL (4.5-11.0)
[2024-03-30 06:28] LABS: ALT/SGPT 34 U/L (<40); AST/SGOT 33 U/L (<40); Albumin 3.3 gm/dL (3.2-5.2); Albumin/Globulin Ratio 1.2 (1.0-2.3); Alkaline Phosphatase 80 U/L (39-117); Bilirubin,Total 0.3 mg/dL (0.1-1.0); Blood Urea Nitrogen 47 mg/dL (8-23); Calcium 8.5 mg/dL (8.6-10.4); Carbon Dioxide 20 mmol/L (22-30); Chloride 103 mmol/L (96-108); Globulin 2.7 gm/dL (2.2-3.7); Glomerular Filtration Rate 56; Glucose 120 mg/dL (70-105); Potassium 3.9 mmol/L (3.3-5.1); Sodium 137 mmol/L (133-145)
[2024-03-30] MEDS: AZITHROMYCIN 250 MG TABLET PO SCH (08:34)
[2024-03-30] MEDS: OMEPRAZOLE 20 MG CAPSULE PO SCH (08:34)
[2024-03-30] MEDS ORDERED: DILTIAZEM 120 MG CAP.XL.24H PO SCH (09:00)
[2024-03-30] MEDS ORDERED: METOPROLOL TARTRATE 5 MG/5 ML VIAL IV PRN (13:14)
[2024-03-30] MEDS: NYSTATIN 500,000 UNITS/5 ML ORAL.SUSP SSW SCH (20:58)
[2024-03-31 06:58] LABS: ALT/SGPT 34 U/L (<40); AST/SGOT 30 U/L (<40); Albumin 3.2 gm/dL (3.2-5.2); Albumin/Globulin Ratio 1.3 (1.0-2.3); Alkaline Phosphatase 75 U/L (39-117); Bilirubin,Direct < 0.2 mg/dL (0-0.3); Bilirubin,Total 0.4 mg/dL (0.1-1.0); Blood Urea Nitrogen 47 mg/dL (8-23); Calcium 8.6 mg/dL (8.6-10.4); Carbon Dioxide 21 mmol/L (22-30); Chloride 103 mmol/L (96-108); Globulin 2.5 gm/dL (2.2-3.7); Glomerular Filtration Rate 70; Glucose 103 mg/dL (70-105); Lactate Dehydrogenase 212 U/L (135-225); Phosphorous 3.6 mg/dL (2.5-4.5); Potassium 4.5 mmol/L (3.3-5.1); Sodium 136 mmol/L (133-145); Triglycerides 56 mg/dL (<150); Uric Acid 8.2 mg/dL (2.5-8.0)
[2024-03-31] MEDS: IPRATROPIUM/ALBUTEROL 3 ML AMPUL.NEB NEB PRN (08:46)
[2024-03-31] MEDS ORDERED: BENZOCAINE/MENTHOL 1 LOZENGE PO PRN (08:47)
[2024-03-31] MEDS: BUDESONIDE 0.5 MG/2 ML AMPUL.NEB NEB SCH (09:58)
[2024-03-31] MEDS: MELATONIN 3 MG TABLET PO SCH (19:33)
[2024-03-31] MEDS: diphenhydrAMINE 25 MG CAPSULE PO SCH (20:24)
[2024-04-01 07:08] LABS: ALT/SGPT 32 U/L (<40); AST/SGOT 24 U/L (<40); Albumin 3.1 gm/dL (3.2-5.2); Albumin/Globulin Ratio 1.2 (1.0-2.3); Alkaline Phosphatase 71 U/L (39-117); Bilirubin,Direct < 0.2 mg/dL (0-0.3); Bilirubin,Total 0.4 mg/dL (0.1-1.0); Blood Urea Nitrogen 43 mg/dL (8-23); Calcium 8.5 mg/dL (8.6-10.4); Carbon Dioxide 20 mmol/L (22-30); Chloride 106 mmol/L (96-108); Globulin 2.6 gm/dL (2.2-3.7); Glomerular Filtration Rate 79; Glucose 123 mg/dL (70-105); Lactate Dehydrogenase 216 U/L (135-225); Phosphorous 3.3 mg/dL (2.5-4.5); Potassium 4.7 mmol/L (3.3-5.1); Sodium 137 mmol/L (133-145); Triglycerides 71 mg/dL (<150); Uric Acid 7.4 mg/dL (2.5-8.0)
== END 2024-04-01 13:30 | disposition home or self-care (01) | DRG 177 ==
LOC: ED 05:02 → MEDSUR 11:32
PROVIDERS: ADMIT Internal Medicine; ATTEND Internal Medicine